=== PATIENT | female | born 1960 | race Caucasian/White ===

== ENCOUNTER → 2020-02-11 09:22 | Outpatient (BNVA) | payer OTHER, SELFPAY | PROVIDERS: PCP Internal Medicine | DX: Z20.828 Contact with and (suspected) exposure to other viral communicable diseases (principal) ==

== ENCOUNTER 2020-02-11 12:36 | Outpatient (REF) | payer OTHER, SELFPAY | END 2020-02-11 12:37 | disposition home or self-care (01) | LOC: HO.HMGCLDS 12:36 | PROVIDERS: PCP Internal Medicine; Visit Provider Internal Medicine | DX: Z20.828 Contact with and (suspected) exposure to other viral communicable diseases (principal) | CPT/HCPCS: 87635 ==

== ENCOUNTER → 2020-02-24 12:45 | Outpatient (BNVA) | payer OTHER, SELFPAY | PROVIDERS: PCP Internal Medicine; Visit Provider Anesthesiology | DX: Z76.89 Persons encountering health services in other specified circumstances (principal) ==

== ENCOUNTER 2020-02-26 12:25 | Day surgery (SDC) | payer OTHER, SELFPAY ==
[2020-02-26 12:30] VITALS: BMI 37.8
--- NOTE | 2020-02-26 12:33 | MHC.SHP ---
Pre-Procedural Eval Section A The patient is an INPATIENT: No The History & Physical has been completed within 30 days and I have reviewed it.: No Section B Chief Complaint: sacroiliitis left Details of Present Illness: low back pain, sacroiliitis Relevant Family History (Specify if Yes): No Relevant Social History: None Present Medications: None Medical History: No relevant PMH History of Previous Operations: Relevant previous surgery/procedure and date(s) (postlaminectomy syndrome) Allergies: Allergies Allergy/AdvReac Type Severity Reaction Status Date / Time No Known Allergies Allergy Unverified 12/31/19 15:54 [No Known Allergies*] Review of Systems Sugical H&P ROS: Negative: Constitution, Cardiovascular, Respiratory, Neurological, Psychiatric, Hem-Onc, Allergic/Immunologic, Gastrointestinal, Genitourinary, Musculoskeletal, Integumentary, Endocrine and Eyes/Ears/Nose/Throat Exam Surgical H&P Exam: Normal: HEENT, Normal: Heart, Normal: Lungs, Normal: Extremities, Normal: Abdomen, Normal: Skin and Normal: Neurological Plan Diagnosis/Plan: Unchanged Patient has been examined and remains a candidate for the planned procedure
--- NOTE | 2020-02-26 12:35 | HO.ANESPROP2 ---
[facility] Past Medical History Medical History Lumbar back pain with radiculopathy affecting lower extremity Postlaminectomy syndrome Sacroiliitis Social History Social History Smoking Status: Never smoker Second Hand Smoke Exposure: No Use of substances other than those prescribed or required for medical reasons: No Advance Directives: Yes Advance Directives Information Provided: No Advance Directives on File: Yes Advance Directives Date on File: 02/26/20 Meds Allergies Allergy/AdvReac Type Severity Reaction Status Date / Time No Known Allergies Allergy Unverified 12/31/19 15:54 [No Known Allergies*] Home Medications Medication Instructions Recorded Confirmed Type bupropion HCl 200 mg tablet,12 hr 200 mg PO QAM 02/24/20 History sustained-release cholecalciferol (vitamin D3) 50 50 mcg PO DAILY 02/24/20 History mcg (2,000 unit) capsule montelukast 10 mg tablet 10 mg PO DAILY 02/24/20 History Exam Exam Date and Time: February 26, 2020 1235 Height,Weight and Vital Signs: Height 5 ft 5 in Weight 102.965 kg Airway Mallampati Class: II TM Dist: >3cm Neck ROM: Full Assessment and Plan Assessment Anesthesia Assessment: Anesthesia Plan Discussed and Chart Reviewed Final Anesthetic Review NPO: Yes ASA Class: II Final Preanesthetic Review: No Changes in Pt Med Stat, Meds/Allgs Chart Reviewed, Consent Obtained/Reviewed and Anes Risks/Benef Reviewed Patient Risk: Low Procedure Risk: Low Assessment/Block/Sedation in SS: Assess/Block/Sedation-SS Anesthetic Plan Anesthetic Plan: MAC: Disposition: Standard PACU
[2020-02-26 12:50] VITALS: BP 147/90; PULSE 84; RESP 16; TEMP 36.3; O2SAT 98
--- NOTE | 2020-02-26 13:10 | FL_ITS ---
EXAMINATION: XR FLUOROSCOPY WITH IMAGES CLINICAL INFORMATION: Left sacroiliac joint steroid injection COMPARISON: None. TECHNIQUE: Fluoroscopy performed by Dr. Ander Ellis. Fluoroscopy time: 0.2 minutes DAP: 1.69 Gycm2 Images: 2 FINDINGS: There is a radiopaque needle overlying the left sacroiliac joint inferiorly. Contrast is seen in the area. FL/FL guidance in OR IMPRESSION: Fluoroscopic guidance for left sacroiliac joint injection. Please refer to procedural report for further information.
--- NOTE | 2020-02-26 13:21 | PM.OP ---
Brief Operative Note Date of Service: 02/26/20 Post-op diagnosis: same Procedure: left Sacroiliac joint injection Surgeon: Ander Ellis MD Estimated blood loss (mL): 0
--- NOTE | 2020-02-26 13:22 | PM.OP ---
Brief Operative Note Date of Service: 02/26/20 Surgeon: Ander Ellis MD Anesthesia: MAC Estimated blood loss (mL): 0 Pathology: none sent Condition: stable Disposition: PACU
[2020-02-26 13:28] VITALS: BP 126/54; PULSE 80; RESP 12; TEMP 36.6; O2SAT 98
[2020-02-26 13:33] VITALS: BP 117/62; PULSE 81; RESP 18; O2SAT 98
[2020-02-26 13:47] VITALS: BP 125/54; PULSE 82; RESP 18; TEMP 36.6; O2SAT 99
--- NOTE | 2020-02-26 15:11 | P.OP_ITS ---
Operative Note Operative Note Date of Service: 02/26/20 Narrative: Informed consent was explained thoroughly to the patient. All questions about benefits and risks for the procedure were answered. Patient came to the operating room she was positioned prone on the operating table with the pillow under her pelvis. [place] [employer] monitors were applied and patient was deeply sedated. Her lower back and buttocks was prepped with ChloraPrep prepped and draped with sterile towels. Sterilely draped C-arm was brought over the operating field and sq picture of patient's pelvis was demonstrated on the screen. For The left joint tilting C-arm contralateral to the site of the joint and 10? to the foot of the patient the most posterior portion of the joints were clearly delineated on the screen. Skin was injected in the projection of the joint slightly medial to the location of the joint with 25 gauge 1/2 inch needle using local lidocaine 2% without epinephrine. After that 22 gauge 3 and 1/2 inch needle was driven to the joint in tunnel vision fashion. When needle entered the joint capsule injection of the contrast was performed demonstrating intra-articular and minimally periarticular spread of the contrast. After that 4 cc. of bupivacaine 0.5% mixed with 40 mg of Kenalogwas injected into the left joint. Upon completion of the injections the needles were removed and pressure were applied. Sterile dressing was applied. Upon completion of the injection patient was awaken taking outside of the operating room to the recovery room where she recovered uneventfully. She went home without immediate complications.
== END 2020-02-26 14:13 | disposition home or self-care (01) ==
PROVIDERS: PCP Internal Medicine; Visit Provider Anesthesiology
PROC: 3E0U33Z Introduction of Anti-inflammatory into Joints, Percutaneous Approach (ICD-10-PCS; CPT 27096; principal; 2020-02-26 14:00)
DX: M46.1 Sacroiliitis, not elsewhere classified (principal); M54.16 Radiculopathy, lumbar region; M96.1 Postlaminectomy syndrome, not elsewhere classified; Y83.8 Other surgical procedures as the cause of abnormal reaction of the patient, or of later complication, without mention of misadventure at the time of the procedure; Z79.899 Other long term (current) drug therapy
CPT/HCPCS: 27096; J2250; J3300; Q9967

== ENCOUNTER 2020-03-01 10:00 | Outpatient (RCR) | payer OTHER, SELFPAY ==
--- NOTE | 2020-03-30 13:21 | MHC.PT.DC ---
[facility] [place] [facility] [place] [facility] [place] [facility] [address] Miles Ochoa [address] [phone] F: [phone] F: [phone] F: [phone] F: [phone] Physical Therapy Discharge Report Diagnosis: low back pain Date of Surgery: 08/2019 Date of Evaluation: 01/13/20 Date of Discharge: 03/30/20 Treatments to Date: 10 Cancellations to Date: 0 No Shows to Date: 0 Discharge Status: Achieved Goals Improved Function Independent with HEP Discharge Summary: Patient tolerated exercises well at the last tx session and reports an improvement in sleeping as well. She has had a cortisone injection and feeling better overall. She cancelled remaining visits as she was doing better. I kept her chart open for 30 days in case she wanted to return however. DC to HEP at this time. Electronically signed by: Milagros Rubio PT Please sign and return to therapist. Thank you for your referral.
== END 2020-03-30 13:22 | disposition home or self-care (01) ==
LOC: HO.PTCHIC 10:00
PROVIDERS: PCP Internal Medicine; Visit Provider Internal Medicine
DX: M54.40 Lumbago with sciatica, unspecified side (principal)
CPT/HCPCS: 97110; 97140; 97530

== ENCOUNTER 2020-03-09 08:15 | Outpatient (REF) | payer OTHER, SELFPAY ==
[2020-03-16 15:43] LABS: HLA B27 Negative (Negative)
== END 2020-03-09 08:16 | disposition home or self-care (01) ==
LOC: HO.HMGCLDS 08:15
PROVIDERS: PCP Internal Medicine; Visit Provider Internal Medicine
DX: M25.50 Pain in unspecified joint (principal); M46.1 Sacroiliitis, not elsewhere classified; Z82.69 Family history of other diseases of the musculoskeletal system and connective tissue
CPT/HCPCS: 36415; 86812

== ENCOUNTER 2020-03-16 13:52 | Outpatient (REF) | payer OTHER, SELFPAY ==
[2020-03-16 14:13] LABS: COVID-19 Test Negative (Negative)
== END 2020-03-16 13:53 | disposition home or self-care (01) ==
LOC: HO.EMPCOV 13:52
PROVIDERS: Visit Provider Internal Medicine
DX: Z20.828 Contact with and (suspected) exposure to other viral communicable diseases (principal)
CPT/HCPCS: 87635; C9803

== ENCOUNTER 2020-03-28 10:12 | Outpatient (REF) | payer OTHER, SELFPAY ==
[2020-03-28 10:47] LABS: COVID-19 Test Negative (Negative); IDNOW Serial# 55D5AD1C
== END 2020-03-28 10:13 | disposition home or self-care (01) ==
LOC: HO.EMPCOV 10:12
PROVIDERS: PCP Internal Medicine; Visit Provider Internal Medicine
DX: Z20.828 Contact with and (suspected) exposure to other viral communicable diseases (principal)
CPT/HCPCS: 87635; C9803

== ENCOUNTER 2020-04-18 07:24 | Outpatient (REF) | payer OTHER, SELFPAY ==
[2020-04-18 07:44] LABS: COVID-19 Test Negative (Negative); IDNOW Serial# 55D5AD1C
== END 2020-04-18 07:25 | disposition home or self-care (01) ==
LOC: HO.EMPCOV 07:24
PROVIDERS: PCP Internal Medicine; Visit Provider Internal Medicine
DX: Z20.822 Contact with and (suspected) exposure to COVID-19 (principal)
CPT/HCPCS: 36415; 87635; C9803

== ENCOUNTER → 2020-04-21 11:19 | Outpatient (BNVA) | payer OTHER, SELFPAY | PROVIDERS: PCP Internal Medicine; Visit Provider Anesthesiology | DX: Z76.89 Persons encountering health services in other specified circumstances (principal) ==

== ENCOUNTER 2020-05-27 10:59 | Outpatient (REF) | payer OTHER, SELFPAY ==
[2020-05-27 11:17] LABS: COVID-19 Test Negative (Negative)
== END 2020-05-27 11:00 | disposition home or self-care (01) ==
LOC: HO.EMPCOV 10:59
PROVIDERS: Visit Provider Internal Medicine
DX: Z20.822 Contact with and (suspected) exposure to COVID-19 (principal)
CPT/HCPCS: 36415; 87635; C9803

== ENCOUNTER 2020-06-01 07:56 | Outpatient (REF) | payer OTHER, SELFPAY | END 2020-06-01 07:57 | disposition home or self-care (01) | LOC: HO.HOSX 07:56 | PROVIDERS: Visit Provider Orthopaedic Surgery | DX: Z13.89 Encounter for screening for other disorder (principal) ==

== ENCOUNTER 2020-06-29 07:11 | Outpatient (REF) | payer OTHER, SELFPAY ==
[2020-06-29 11:03] LABS: MANUAL DIFF FLAG NO
[2020-06-29 11:09] LABS: Basophils Absolute Auto 0.1 X10*3/uL (0.0-0.2); Basophils Percent Auto 0.6 % (0-2); Eosinophils Absolute Auto 0.2 X10*3/uL (0.0-0.4); Eosinophils Percent Auto 2.7 % (0-4); Hematocrit 44.3 % (37-47); Hemoglobin 13.7 g/dl (12.0-16.0); Imm Gran Abs Auto 0.02 X10*3/uL (0.00-0.03); Imm Gran Pct Auto 0.2 % (0.0-0.4); Lymphocytes Absolute Auto 2.4 X10*3/uL (1.2-4.9); Lymphocytes Percent Auto 29.7 % (20-40); Mean Corpuscular HGB Conc 30.9 g/dl (31.0-35.0); Mean Corpuscular Hemoglobin 26.2 pg (27.0-33.0); Mean Corpuscular Volume 84.9 fL (80-98); Mean Platelet Volume 10.7 fL (9.4-12.3); Monocytes Absolute Auto 0.7 X10*3/uL (0.1-1.2); Neutrophils Absolute Auto 4.7 X10*3/uL (2.0-8.3); Neutrophils Percent Auto 58.8 % (45-73); Platelet Count 288 X10*3/uL (160-400); Red Blood Count 5.22 X10*6/uL (4.20-5.50); Red Cell Distribution Width 13.2 % (11.0-16.0); White Blood Count 8.1 X10*3/uL (4.8-10.8)
[2020-06-29 11:45] LABS: Alanine Aminotransferase 39 U/L (0-31); Anion Gap 13 (12-20); Aspartate Amino Transferase 26 U/L (5-31); Blood Urea Nitrogen 19 mg/dL (9-16); Calcium 9.2 mg/dL (8.4-10.2); Carbon Dioxide 29 mmol/L (22-29); Chloride 106 mmol/L (96-108); Cholesterol 250 mg/dL; Estimated Glomerular Filt Rate > 60; Glucose Fasting 92 mg/dL (60-99); HDL Cholesterol 44 mg/dL; LDL Cholesterol Calculated 137 mg/dl; Potassium 4.8 mmol/L (3.3-5.1); Sodium 143 mmol/L (135-145); Triglycerides 348 mg/dL
[2020-06-29 11:55] LABS: Vitamin D 25-OH Total 45.5 ng/mL (>30)
[2020-06-30 10:07] LABS: SARS COV2 IgG Positive (Negative)
== END 2020-06-29 07:12 | disposition home or self-care (01) ==
LOC: HO.HMGCLDS 07:11
PROVIDERS: PCP Internal Medicine; Visit Provider Internal Medicine
DX: Z00.01 Encounter for general adult medical examination with abnormal findings (principal); Z01.84 Encounter for antibody response examination; I10 Essential (primary) hypertension; Z78.0 Asymptomatic menopausal state
CPT/HCPCS: 36415; 80048; 80061; 82306; 84450; 84460; 85025; 86769

== ENCOUNTER 2020-07-08 09:19 | Day surgery (SDC) | payer OTHER, SELFPAY ==
[2020-07-01 09:59] VITALS: BMI 38.2
--- NOTE | 2020-07-07 12:13 | HO.ANESPROP2 ---
Documented by User: Tamia Nilsa 07/07/20 12:15 HPI - Anesthesia Eval Consult details Narrative: 59yo F for Left Sacroiliac Joint Innervation Injection s/p sacroiliac joint injection with MAC 02/2020 [facility] Active Problems Active Problems: All Active Problems (Updated 07/01/20 @ 09:55 by Sara Walsh) Soft tissue injury of right knee (Acute) Depression (Acute) Joint pain (Acute) Postlaminectomy syndrome (Acute) Sacroiliitis (Acute) Lumbar back pain with radiculopathy affecting lower extremity (Acute) Past Medical History Medical History Depression Family history of ankylosing spondylitis Joint pain Lumbar back pain with radiculopathy affecting lower extremity Postlaminectomy syndrome Sacroiliitis Family History Family History Father Arthritis COPD (chronic obstructive pulmonary disease) Afib High cholesterol CVD (cardiovascular disease) Mother Arthritis High cholesterol Graves disease Brother Arthritis Sister Sjogrens syndrome Maternal Grandmother Breast cancer Myoclonus Rheumatoid arthritis PTSD (post-traumatic stress disorder) Sister Lyme disease Fibromyalgia Graves disease Son No problems noted. Daughter No problems noted. Surgical History Surgical History History of breast mammoplasty History of knee surgery History of microdiscectomy History of total abdominal hysterectomy and bilateral salpingo-oophorectomy Social History Social History Alcohol intake: never Smoking Status: Never smoker Second Hand Smoke Exposure: No Use of substances other than those prescribed or required for medical reasons: No Advance Directives: Yes Advance Directives Information Provided: Yes Advance Directives on File: Yes Advance Directives Date on File: 02/26/20 Meds Allergies Allergy/AdvReac Type Severity Reaction Status Date / Time No Known Allergies Allergy Verified 07/08/20 09:53 [No Known Allergies*] Home Medications Medication Instructions Recorded Confirmed Last Taken Type cholecalciferol (vitamin D3) 50 50 mcg PO DAILY 02/24/20 07/01/20 Unknown History mcg (2,000 unit) capsule montelukast 10 mg tablet 10 mg PO DAILY 02/24/20 07/01/20 Unknown History celecoxib 1 cap PO DAILY 07/01/20 07/01/20 Unknown History cetirizine 1 tab PO DAILY 07/01/20 07/01/20 Unknown History Exam Exam Date and Time: July 07, 2020 1213 Height,Weight and Vital Signs: Height 5 ft 5 in Weight 104.326 kg Pertinent Lab Results Pertinent Lab Results: Laboratory Tests 06/29/20 06/29/20 07:15 07:15 WBC 8.1 Hgb 13.7 Hct 44.3 Plt Count 288 Sodium 143 Potassium 4.8 Chloride 106 Carbon Dioxide 29 BUN 19 H Creatinine 0.80 Assessment and Plan Assessment Anesthesia Assessment: Chart Reviewed Documented by User: Vernon Marina MD 07/08/20 10:13 PMF Past Medical History Medical History Depression Family history of ankylosing spondylitis Joint pain Lumbar back pain with radiculopathy affecting lower extremity Postlaminectomy syndrome Sacroiliitis Family History Family History Father Arthritis COPD (chronic obstructive pulmonary disease) Afib High cholesterol CVD (cardiovascular disease) Mother Arthritis High cholesterol Graves disease Brother Arthritis Sister Sjogrens syndrome Maternal Grandmother Breast cancer Myoclonus Rheumatoid arthritis PTSD (post-traumatic stress disorder) Sister Lyme disease Fibromyalgia Graves disease Son No problems noted. Daughter No problems noted. Surgical History Surgical History History of breast mammoplasty History of knee surgery History of microdiscectomy History of total abdominal hysterectomy and bilateral salpingo-oophorectomy Social History Social History Alcohol intake: never Smoking Status: Never smoker Second Hand Smoke Exposure: No Use of substances other than those prescribed or required for medical reasons: No Advance Directives: Yes Advance Directives Information Provided: Yes Advance Directives on File: Yes Advance Directives Date on File: 02/26/20 Meds Allergies Allergy/AdvReac Type Severity Reaction Status Date / Time No Known Allergies Allergy Verified 07/08/20 09:53 [No Known Allergies*] Home Medications Medication Instructions Recorded Confirmed Last Taken Type cholecalciferol (vitamin D3) 50 50 mcg PO DAILY 02/24/20 07/01/20 Unknown History mcg (2,000 unit) capsule montelukast 10 mg tablet 10 mg PO DAILY 02/24/20 07/01/20 Unknown History celecoxib 1 cap PO DAILY 07/01/20 07/01/20 Unknown History cetirizine 1 tab PO DAILY 07/01/20 07/01/20 Unknown History Exam Airway Mallampati Class: II TM Dist: >3cm Neck ROM: Full Loose/Missing/Broken Teeth: No Heart: RRR Lungs: NL Assessment and Plan Assessment Anesthesia Assessment: Anesthesia Plan Discussed and Chart Reviewed Final Anesthetic Review NPO: Yes ASA Class: III Final Preanesthetic Review: No Changes in Pt Med Stat, Meds/Allgs Chart Reviewed, Consent Obtained/Reviewed and Anes Risks/Benef Reviewed Patient Risk: Intermediate Procedure Risk: Low Anesthetic Plan Anesthetic Plan: GA Disposition: Standard PACU
--- NOTE | ~2020-07-08 | FL_ITS ---
EXAMINATION: XR FLUOROSCOPY WITH IMAGES CLINICAL INFORMATION: Sacroiliac joint innervation injection COMPARISON: Radiographs sacrum 01/11/2020 TECHNIQUE: Fluoroscopy performed by Dr. Ander Ellis. Fluoroscopy time: 0.4 minutes DAP: 6.62 Gycm2 Images: 5 FINDINGS: There are spinal needles overlying the left outer L4-L5 and L5-S1 neural foramen with contrast in the nerve sheath and some transforaminal epidural extension. There are also spinal needles overlying the left sacral wing. FL/FL guidance in OR IMPRESSION: Fluoroscopy for pain management procedures.
[2020-07-08 09:33] VITALS: BP 143/66; PULSE 73; RESP 16; TEMP 36.4; O2SAT 97
--- NOTE | 2020-07-08 09:45 | MHC.SHP ---
Pre-Procedural Eval Section A The patient is an INPATIENT: No Changes since office visit: Yes Patient answered all questions The History & Physical has been completed within 30 days and I have reviewed it.: No Section B Chief Complaint: Sacroiliitis Details of Present Illness: As above Relevant Family History (Specify if Yes): No Relevant Social History: None Present Medications: see Short Stay Collaborative assessment Medical History: No relevant PMH History of Previous Operations: Relevant previous surgery/procedure and date(s) Allergies: Allergies Allergy/AdvReac Type Severity Reaction Status Date / Time No Known Allergies Allergy Verified 07/01/20 09:56 [No Known Allergies*] Review of Systems Sugical H&P ROS: Negative: Cardiovascular, Respiratory, Neurological, Psychiatric, Hem-Onc, Allergic/Immunologic, Gastrointestinal, Genitourinary, Musculoskeletal, Integumentary, Endocrine and Eyes/Ears/Nose/Throat and Yes, Specify: Constitution (Obesity) Exam Surgical H&P Exam: Normal: HEENT, Normal: Heart, Normal: Lungs, Normal: Extremities, Normal: Abdomen, Normal: Skin and Normal: Neurological Plan Diagnosis/Plan: Unchanged I have reviewed the history and physical and performed a pertinent physical examination on my patient. No changes have occurred unless specified.
[2020-07-08] MEDS: Lactated Ringers 1,000 ML 100 ML IVCONT (09:51)
[2020-07-08 10:25] VITALS: BP 124/60; PULSE 66; RESP 16; TEMP 36.6; O2SAT 97
--- NOTE | 2020-07-08 10:27 | PM.OP ---
Brief Operative Note Date of Service: 07/08/20 Pre-op diagnosis: Sacroiliitis Post-op diagnosis: same Procedure: Sacroiliac joint innervation injection. Left-sided sacroiliac joint Surgeon: Ander Ellis MD Anesthesia: MAC Estimated blood loss (mL): 0 Disposition: PACU
[2020-07-08 10:41] VITALS: BP 124/68; PULSE 66; RESP 18; O2SAT 98
--- NOTE | 2020-07-11 09:53 | W.PM.OPN ---
Operative Note Operative Note Date of Service: 07/08/20 Narrative: Informed consent was explained thoroughly to the patient. All questions about benefits and risks for the procedure were answered. Patient came to the operating room she was positioned prone on the operating table with the pillow under her pelvis. [place] [employer] monitors were applied and patient was deeply sedated. Opioids and ketamine were avoided during the sedation. Her lower back and buttocks was prepped with ChloraPrep prepped and draped with sterile towels. Sterilely draped C-arm was brought over the operating field and sq picture of patient's pelvis was demonstrated on the screen. The point of interests were delineated 1st: Point A as the left L5 superior articular process at the point of its connection with corresponding transverse process and point B: Left S1 superior articular process at it's connection with sacral alae. The point C was determined as the lowest point of the sacroiliac joint on sacral side of the joint. The rest of the point of interests were determined as the line between the point B and the point C . The needles between point B and point C were planned to insert in the straight line in palisade fashion. The skin in the projection of the points of interest were injected with small amount of local lidocaine 2%, after that 22 gauge 3-1/2 inch needles were driven to the point of interest in tunnel vision fashion. When cannulas gently contacted the bone- the each point of interest small amount of bupivacaine 0.5% less than 1 cc was injected each needle. Upon completion of the injections the needles were removed sterile dressing was applied. The patient tolerated procedure well. She went outside of the operating room to PACU where she recovered uneventfully. She went home without immediate complications.
== END 2020-07-08 11:11 | disposition home or self-care (01) ==
PROVIDERS: PCP Internal Medicine; Visit Provider Anesthesiology
PROC: (CPT 64451; principal; 2020-07-08 10:30)
DX: M46.1 Sacroiliitis, not elsewhere classified (principal); M96.1 Postlaminectomy syndrome, not elsewhere classified; M54.16 Radiculopathy, lumbar region
CPT/HCPCS: 64451; J2250; J3010; J3300; Q9967

== ENCOUNTER → 2020-07-14 13:31 | Outpatient (BNVA) | payer OTHER, SELFPAY | PROVIDERS: PCP Internal Medicine; Visit Provider Anesthesiology ==

== ENCOUNTER → 2020-07-19 10:49 | Outpatient (BNVA) | payer OTHER, SELFPAY | PROVIDERS: PCP Internal Medicine; Visit Provider Orthopaedic Surgery | DX: M17.11 Unilateral primary osteoarthritis, right knee (principal) | CPT/HCPCS: 20610; J1040 ==

== ENCOUNTER 2020-08-12 06:11 | Day surgery (SDC) | payer OTHER, SELFPAY ==
--- NOTE | 2020-08-11 13:07 | P.CONAN_ITS ---
Documented by User: Tamia Ash 08/11/20 13:27 HPI - Anesthesia Eval Consult details Narrative: 59yo F for Left Peripheral Nerve Stimulator Trial, sacroiliac joint innervation s/p Left Left Sacroiliac Joint Innervation Injection with MAC 06/2020 [facility] Active Problems Active Problems: All Active Problems (Updated 07/19/20 @ 11:01 by Kaye Damian MD) Osteoarthritis of right knee (Acute) Postmenopause (Acute) Mixed dyslipidemia (Acute) Soft tissue injury of right knee (Acute) Depression (Acute) Joint pain (Acute) Postlaminectomy syndrome (Acute) Sacroiliitis (Acute) Lumbar back pain with radiculopathy affecting lower extremity (Acute) Past Medical History Medical History (Updated 08/12/20 @ 07:52 by Lyndsay Bai) Depression Family history of ankylosing spondylitis History of shingles Increased BMI Joint pain Lumbar back pain with radiculopathy affecting lower extremity Mixed dyslipidemia Osteoarthritis of right knee Postlaminectomy syndrome Postmenopause Sacroiliitis Family History Family History Father Arthritis COPD (chronic obstructive pulmonary disease) Afib High cholesterol CVD (cardiovascular disease) Mother Arthritis High cholesterol Graves disease Brother Arthritis Sister Sjogrens syndrome Maternal Grandmother Breast cancer Myoclonus Rheumatoid arthritis PTSD (post-traumatic stress disorder) Sister Lyme disease Fibromyalgia Graves disease Son No problems noted. Daughter No problems noted. Surgical History Surgical History History of breast mammoplasty History of knee surgery History of microdiscectomy History of total abdominal hysterectomy and bilateral salpingo-oophorectomy Social History Social History Alcohol intake: never Smoking Status: Former smoker Smoked in Last 30 Days: No Smoking Quit Date: 40 years ago Second Hand Smoke Exposure: No Use of substances other than those prescribed or required for medical reasons: Yes Substance Use Frequency: Socially Advance Directives: No Advance Directives Information Provided: Yes Advance Directives Date on File: 02/26/20 Meds Allergies Allergy/AdvReac Type Severity Reaction Status Date / Time No Known Allergies Allergy Verified 07/25/20 01:21 [No Known Allergies*] Home Medications Medication Instructions Recorded Confirmed Last Taken Type cholecalciferol (vitamin D3) 50 50 mcg PO DAILY 02/24/20 07/18/20 Unknown History mcg (2,000 unit) capsule montelukast 10 mg tablet 10 mg PO DAILY 02/24/20 07/18/20 Unknown History celecoxib 1 cap PO DAILY 07/01/20 07/18/20 Unknown History cetirizine 1 tab PO DAILY 07/01/20 07/18/20 Unknown History Exam Exam Date and Time: August 11, 2020 1307 Assessment and Plan Assessment Anesthesia Assessment: Chart Reviewed Documented by User: Lyndsay Bai 08/12/20 07:55 PMF Past Medical History Medical History (Updated 08/12/20 @ 07:52 by Lyndsay Bai) Depression Family history of ankylosing spondylitis History of shingles Increased BMI Joint pain Lumbar back pain with radiculopathy affecting lower extremity Mixed dyslipidemia Osteoarthritis of right knee Postlaminectomy syndrome Postmenopause Sacroiliitis Family History Family History Father Arthritis COPD (chronic obstructive pulmonary disease) Afib High cholesterol CVD (cardiovascular disease) Mother Arthritis High cholesterol Graves disease Brother Arthritis Sister Sjogrens syndrome Maternal Grandmother Breast cancer Myoclonus Rheumatoid arthritis PTSD (post-traumatic stress disorder) Sister Lyme disease Fibromyalgia Graves disease Son No problems noted. Daughter No problems noted. Family history of problems with anesthesia: No Surgical History Surgical History History of breast mammoplasty History of knee surgery History of microdiscectomy History of total abdominal hysterectomy and bilateral salpingo-oophorectomy History of Problems with Anesthesia: No Social History Social History Alcohol intake: never Smoking Status: Former smoker Smoked in Last 30 Days: No Smoking Quit Date: 40 years ago Second Hand Smoke Exposure: No Use of substances other than those prescribed or required for medical reasons: Yes Substance Use Frequency: Socially Advance Directives: No Advance Directives Information Provided: Yes Advance Directives Date on File: 02/26/20 Meds Allergies Allergy/AdvReac Type Severity Reaction Status Date / Time No Known Allergies Allergy Verified 07/25/20 01:21 [No Known Allergies*] Home Medications Medication Instructions Recorded Confirmed Last Taken Type cholecalciferol (vitamin D3) 50 50 mcg PO DAILY 02/24/20 07/18/20 Unknown History mcg (2,000 unit) capsule montelukast 10 mg tablet 10 mg PO DAILY 02/24/20 07/18/20 Unknown History celecoxib 1 cap PO DAILY 07/01/20 07/18/20 Unknown History cetirizine 1 tab PO DAILY 07/01/20 07/18/20 Unknown History Exam Height,Weight and Vital Signs: Vital Signs Temp Pulse Resp BP Pulse Ox 08/12/20 06:41 98.2 F 75 16 131/76 97 Narrative Narrative: Piercings nose, front of ears- states difficult to remove- aware of possibility of loss, pressure from positioning abd elects to keep piercings in Airway Mallampati Class: II TM Dist: >3cm Neck ROM: Full Heart: RRR Lungs: CTAB Assessment and Plan Assessment Anesthesia Assessment: Anesthesia Plan Discussed and Chart Reviewed Final Anesthetic Review NPO: Yes ASA Class: III Final Preanesthetic Review: No Changes in Pt Med Stat, Meds/Allgs Chart Reviewed and Anes Risks/Benef Reviewed Patient Risk: Intermediate Procedure Risk: Low Assessment/Block/Sedation in SS: Assess/Block/Sedation-SS Anesthetic Plan Anesthetic Plan: MAC:
[2020-08-12] VITALS (9 sets, daily range): BP systolic 108–131; BP diastolic 53–76; PULSE 65–78; RESP 12–18; TEMP 36.7–36.9; O2SAT 96–97; BMI 37.4
--- NOTE | ~2020-08-12 | FL_ITS ---
EXAMINATION: XR FLUOROSCOPY WITH IMAGES CLINICAL INFORMATION: Peripheral nerve stimulator COMPARISON: Previous exam 07/08/2020 TECHNIQUE: Fluoroscopy performed by Dr. Ander Ellis. Fluoroscopy time: 0.4 minutes DAP: 3.3 mGycm2 Images: 0.4 FINDINGS: 2 images demonstrate a lead projecting over the left sacrum. FL/FL guidance in OR IMPRESSION: Fluoroscopic guidance for peripheral nerve stimulator placement in the left sacrum.
[2020-08-12] MEDS: Lactated Ringers 1,000 ML 100 ML IVCONT (06:56)
--- NOTE | 2020-08-12 07:05 | MHC.SHP ---
Pre-Procedural Eval Section A The patient is an INPATIENT: No Changes since office visit: Yes Patient answered all questions The History & Physical has been completed within 30 days and I have reviewed it.: No Section B Chief Complaint: sacrolitis Details of Present Illness: as above Relevant Family History (Specify if Yes): No Relevant Social History: None Present Medications: see Short Stay Collaborative assessment Medical History: No relevant PMH History of Previous Operations: No relevant previous surgery Allergies: Allergies Allergy/AdvReac Type Severity Reaction Status Date / Time No Known Allergies Allergy Verified 07/25/20 01:21 [No Known Allergies*] Review of Systems Sugical H&P ROS: Negative: Constitution, Cardiovascular, Respiratory, Neurological, Psychiatric, Hem-Onc, Allergic/Immunologic, Gastrointestinal, Genitourinary, Musculoskeletal, Integumentary, Endocrine and Eyes/Ears/Nose/Throat Exam Surgical H&P Exam: Normal: HEENT, Normal: Heart, Normal: Lungs, Normal: Extremities, Normal: Abdomen, Normal: Skin and Normal: Neurological Plan Diagnosis/Plan: Unchanged I have reviewed the history and physical and performed a pertinent physical examination on my patient. No changes have occurred unless specified.
--- NOTE | 2020-08-12 07:21 | PM.OP ---
Brief Operative Note Date of Service: 08/12/20 Pre-op diagnosis: Sacroiliitis Post-op diagnosis: same Procedure: PNS of SI joint innervation left stimwave. Implants: none permanent Surgeon: Ander Ellis MD Anesthesia: MAC Estimated blood loss (mL): 18 Pathology: none sent Condition: stable Disposition: PACU
--- NOTE | 2020-08-12 07:23 | P.OP_ITS ---
Operative Note Operative Note Date of Service: 08/12/20 Narrative: Seema is 59 years old female who came today into the operating room for trial of Peripheral nerve stimulation of the left Sacroiliac joint innervation trial with stimwave technology. Preoperatively patient received 2 g cefazolin _approximately 30 minutes before the procedure. After obtaining informed consent patient was brought to the operating room, she was positioned prone on operating table, [employer] monitors were applied and patient was deeply sedated. Time-out was performed delineating correct site, side, the nature of the procedure, patient's allergy, preoperative antibiotic. All operating room staff was participating in OR time-out procedure. Patient's entire back was prepped with ChloraPrep twice and draped with full body drape. Sterilely draped C-arm was brought over operating field and attention was concentrated on the left sacroiliac joint area pain. 10 cm malleable Coude needle was inserted to the skin in the projection of about 2 cm cephalad of the sacroiliac joints upper margin. The needle was advanced toward the sacral bone and after that followed the curvature of the sacral bone to the point where the lower most portion of the sacroiliac joint is contacted. On the lateral view the needle was posterior to the sacral bone therefore covering innervation of sacroiliac joint. stimulating lead was inserted through the needle and advanced to the lower margin of the sacroiliac joint. After that the stirring style was removed from the stimulating lead and copper wire stimulating stylet was inserted into the lead. Coude needle was removed, care was taken to keep the electrode in place. Skin at the point of entrance of the lead was prepped with Mastisol, at the 2nd margin of the stimulating antenna just below the 2nd margin the knot was tied on the lead. After that Steri-Strips were used to fix the lead to the skin smeared with Mastisol. After that sterile dressing was applied. The transmitter was placed over the antenna of the lead and it was taped to the skin. At this moment patient was awaken and transferred to the bed. She was recovering uneventfully in PACU.
--- NOTE | 2020-08-12 07:23 | PC.NURSE ---
Patient wearing a total of 6 hoop earrings and two rings (one gold, one silver) on left hand. Patient advised by this RN and anesthesia to remove jewelry so it does not get lost or injury occurs due to positioning. Patient refuses. To proceed with surgery.
[2020-08-12] MEDS: oxyCODONE HCl Immed Release 5 MG TABLET PO (08:55)
== END 2020-08-12 10:30 | disposition home or self-care (01) ==
PROVIDERS: PCP Internal Medicine; Visit Provider Anesthesiology
PROC: (CPT 64555; principal; 2020-08-12 07:30)
DX: M46.1 Sacroiliitis, not elsewhere classified (principal); M96.1 Postlaminectomy syndrome, not elsewhere classified
CPT/HCPCS: 64555; C1778; J0690; J1100; J2250; J2405; J3010

== ENCOUNTER → 2020-08-18 13:13 | Outpatient (BNVA) | payer OTHER, SELFPAY | PROVIDERS: PCP Internal Medicine; Visit Provider Anesthesiology ==

== ENCOUNTER → 2020-09-02 10:31 | Outpatient (BNVA) | payer OTHER, SELFPAY | PROVIDERS: PCP Internal Medicine; Visit Provider Orthopaedic Surgery ==

== ENCOUNTER 2020-09-16 10:21 | Outpatient (REF) | payer OTHER, SELFPAY ==
--- NOTE | ~2020-09-16 | MR_ITS ---
EXAMINATION: MR KNEE WITHOUT CONTRAST, RIGHT CLINICAL INFORMATION: Other tear of medial meniscus, current injury. Patient reports history of osteoarthritis, right knee pain for 40 years, medial, clicks, fall May 2020, swelling, and previous surgery for meniscus tear couple of years ago. COMPARISON: XR right knee 12/16/2019. MRI right knee 02/21/2017. TECHNIQUE: MRI of the knee without contrast was performed using routine sequences on a high-field scanner. FINDINGS: MENISCI: Medial Meniscus: There is a worsening moderate to high-grade irregular partial tear involving the posterior root of the medial meniscus. There is worsening sgyi-fx-dtmbpocg medial extrusion of the body. There is slight worsening intrasubstance degenerative signal in the body with a superimposed horizontal tear extending to the inferior surface adjacent to the free edge. Lateral Meniscus: There is new minor fraying of the free edge of the body of the lateral meniscus. The posterior and anterior horns appear intact. LIGAMENTS: Cruciate: Intact. Collateral: Intact. EXTENSOR MECHANISM: Intact. An enthesophyte is again noted at the quadriceps insertion site. ARTICULAR CARTILAGE/BONE: Patellofemoral Compartment: There is no change in mild cartilage irregularity and thinning in the medial facet of the patella with some involvement of the apex. There is some worsening patchy oeds-vw-qalgkxlp cartilage irregularity and thinning throughout the femoral trochlea. Medial Compartment: There is worsening patchy cartilage irregularity and thinning in the weightbearing medial compartment ranging from mild to high-grade, most severe medially and anteriorly. There is mild underlying bone marrow edema. There are small marginal osteophytes. Lateral Compartment: There is new mild cartilage surface irregularity and thinning in the posterior weightbearing lateral compartment. JOINT FLUID AND BURSAE: Kdfcs-zk-ofkbvbge joint effusion. MR/MR knee RT wo con IMPRESSION: 1. Worsening moderate to high-grade partial tearing of the posterior root of the medial meniscus. Slight worsening degeneration and superimposed inner margin undersurface tear of the body. 2. New minor fraying of the free edge of the body of the lateral meniscus. 3. Worsening jruj-cv-lpqkrerg patellofemoral and moderate to high-grade medial compartment arthrosis. New mild arthrosis in the posterior weightbearing lateral compartment. 4. Aruoj-ap-zucntcaz joint effusion.
== END 2020-09-16 10:22 | disposition home or self-care (01) ==
LOC: HO.MRI 10:21
PROVIDERS: PCP Internal Medicine; Visit Provider Orthopaedic Surgery
DX: S83.241D Other tear of medial meniscus, current injury, right knee, subsequent encounter (principal)
CPT/HCPCS: 73721

== ENCOUNTER → 2020-09-21 09:08 | Outpatient (BNVA) | payer OTHER, SELFPAY | PROVIDERS: PCP Internal Medicine; Visit Provider Orthopaedic Surgery ==

== ENCOUNTER 2020-10-07 10:22 | Day surgery (SDC) | payer OTHER, SELFPAY ==
[2020-09-30 15:08] VITALS: BMI 38.2
--- NOTE | ~2020-10-07 | FL_ITS ---
EXAMINATION: XR FLUOROSCOPY WITH IMAGES CLINICAL INFORMATION: Peripheral nerve implant. COMPARISON: None. TECHNIQUE: Fluoroscopy performed by Dr. Ander Ellis. Fluoroscopy time: 0.8 minutes DAP: 5.71 mGy-cm2 Images: 2 FINDINGS: Fluoroscopic intraoperative images demonstrate catheters to the left of midline in the abdomen and pelvis. FL/FL guidance in OR IMPRESSION: Limited fluoroscopic intraoperative radiographs.
[2020-10-07 10:45] VITALS: BP 144/68; PULSE 74; RESP 18; TEMP 36.6; O2SAT 97
--- NOTE | 2020-10-07 11:04 | P.CONAN_ITS ---
[facility] Active Problems Active Problems: All Active Problems (Updated 09/30/20 @ 15:05 by Sara krishna) Soft tissue injury of right knee (Acute) Tear of medial meniscus of right knee (Acute) Increased BMI (Acute) Osteoarthritis of right knee (Acute) Postmenopause (Acute) Mixed dyslipidemia (Acute) Depression (Acute) Joint pain (Acute) Postlaminectomy syndrome (Acute) Sacroiliitis (Acute) Lumbar back pain with radiculopathy affecting lower extremity (Acute) Past Medical History Medical History Asthma COVID-19 vaccine series completed Depression Family history of ankylosing spondylitis Fibromyalgia History of postoperative nausea and vomiting History of shingles Increased BMI Joint pain Lumbar back pain with radiculopathy affecting lower extremity Mixed dyslipidemia Osteoarthritis Osteoarthritis of right knee Postlaminectomy syndrome Postmenopause Sacroiliitis Family History Family History Father Arthritis COPD (chronic obstructive pulmonary disease) Afib High cholesterol CVD (cardiovascular disease) Mother Arthritis High cholesterol Graves disease Brother Arthritis Sister Sjogrens syndrome Maternal Grandmother Breast cancer Myoclonus Rheumatoid arthritis PTSD (post-traumatic stress disorder) Sister Lyme disease Fibromyalgia Graves disease Son No problems noted. Daughter No problems noted. Family history of problems with anesthesia: No Surgical History Surgical History History of breast mammoplasty History of knee surgery History of microdiscectomy History of total abdominal hysterectomy and bilateral salpingo-oophorectomy History of Problems with Anesthesia: No Social History Social History Alcohol intake: never Patient Tobacco Use Status: Never used Tobacco Second Hand Smoke Exposure: No Use of substances other than those prescribed or required for medical reasons: No Have you been hit, kicked, punched, or otherwise hurt by someone within the past year? If so, by whom?: No Are you DNR?: No Advance Directives: Yes Advance Directives Information Provided: Yes Advance Directives on File: Yes Advance Directives Date on File: 02/26/20 Meds Allergies Allergy/AdvReac Type Severity Reaction Status Date / Time No Known Allergies Allergy Verified 10/07/20 10:51 [No Known Allergies*] Home Medications Medication Instructions Recorded Confirmed Last Taken Type cholecalciferol (vitamin D3) 50 50 mcg PO DAILY 02/24/20 09/30/20 Unknown History mcg (2,000 unit) capsule montelukast 10 mg tablet 10 mg PO DAILY 02/24/20 09/30/20 Unknown History albuterol sulfate 2 puff INHALATION Q6H PRN 09/30/20 09/30/20 Unknown History celecoxib 1 tab PO BID 09/30/20 09/30/20 Unknown History Exam Exam Date and Time: October 07, 2020 1104 Height,Weight and Vital Signs: Height 5 ft 5 in Weight 104.326 kg Last Vital Signs Temp 97.8 F 10/07/20 10:45 Pulse 74 10/07/20 10:45 Resp 18 10/07/20 10:45 BP 144/68 H 10/07/20 10:45 Pulse Ox 97 10/07/20 10:45 Airway Mallampati Class: II TM Dist: >3cm Neck ROM: Full
[2020-10-07] MEDS: Lactated Ringers 1,000 ML 100 ML IVCONT (11:08)
--- NOTE | 2020-10-07 11:35 | MHC.SHP ---
Pre-Procedural Eval Section A Date of Service: 10/07/20 The patient is an INPATIENT: No Changes since office visit: Yes Patient answered all questions The History & Physical has been completed within 30 days and I have reviewed it.: No Section B Chief Complaint: sacroiliitis Details of Present Illness: as above Relevant Family History (Specify if Yes): No Relevant Social History: None Present Medications: see Short Stay Collaborative assessment Medical History: No relevant PMH History of Previous Operations: No relevant previous surgery Allergies: Allergies Allergy/AdvReac Type Severity Reaction Status Date / Time No Known Allergies Allergy Verified 10/07/20 10:51 [No Known Allergies*] Review of Systems Sugical H&P ROS: Negative: Constitution, Cardiovascular, Respiratory, Neurological, Psychiatric, Hem-Onc, Allergic/Immunologic, Gastrointestinal, Genitourinary, Musculoskeletal, Integumentary, Endocrine and Eyes/Ears/Nose/Throat Exam Surgical H&P Exam: Normal: HEENT, Normal: Heart, Normal: Lungs, Normal: Extremities, Normal: Abdomen, Normal: Skin and Normal: Neurological Plan Diagnosis/Plan: Unchanged I have reviewed the history and physical and performed a pertinent physical examination on my patient. No changes have occurred unless specified.
[2020-10-07 11:42] VITALS: BMI 36.6
[2020-10-07 13:35] VITALS: BP 146/86; PULSE 66; RESP 12; TEMP 36.1; O2SAT 98
[2020-10-07] MEDS: oxyCODONE HCl Immed Release 5 MG TABLET PO (13:40)
--- NOTE | 2020-10-07 13:44 | PM.OP ---
Brief Operative Note Date of Service: 10/07/20 Pre-op diagnosis: Sacroiliitis Post-op diagnosis: same Procedure: left SI joint innervation stimulation Implants: Stimwave thined stimulating electrodes Surgeon: Ander Ellis MD Anesthesia: MAC Was an [address] Reporter used for this Procedure?: No Estimated blood loss (mL): 29 Pathology: none sent Condition: stable Disposition: PACU
[2020-10-07 13:45] VITALS: RESP 18
[2020-10-07] MEDS: fentaNYL citrate/PF 100 MCG/2 ML VIAL 50 MCG IVPUSH ×2 (13:45→13:50)
[2020-10-07 13:50] VITALS: BP 137/78; PULSE 69; RESP 16; O2SAT 97
[2020-10-07 13:55] VITALS: BP 143/75; PULSE 77; RESP 16; O2SAT 96
[2020-10-07 14:05] VITALS: BP 122/73; PULSE 85; RESP 16; TEMP 36.8; O2SAT 96
--- NOTE | 2020-10-07 20:41 | W.PM.OPN ---
Operative Note Operative Note Date of Service: 10/07/20 Narrative: After obtaining informed consent patient was brought to the operating room, she was positioned prone on the operating table, [employer] monitors were applied and patient was deeply sedated. Time-out was performed delineating correct site, side, the nature of the procedure, patient's allergy, preoperative antibiotic. All operating room staff was participating in OR time-out procedure. The patient received cefazolin 2 gr. intravenously 30 minutes before the procedure After appropriate level of sedation was obtained the patient's entire back was prepped with ChloraPrep twice. Whole body drape was applied including Ioban film. Sterilely draped C-arm was brought over the operating field and sq picture of left hald of the pelvis was demonstrated on the screen. 4 cm above from the patient's left sacral ala projection the skin was infiltrated in linear vertical fashion and 15 blade scalpel was used to make an incision on the skin 4 cm long. The wound was widened and deepened intil the superficial layer of thoracolumbar fascia. Malleable introducer 16 g 15 cm needle was inserted through the fascia and advanced to the LEFT sacral ala. when the position of the tip of the introducer needle was verified on the lateral view above the level of the bone, the needle advanced alongside the sacral bone curvature following the direction of the silhouette of the sacroilic joint. The guitar wire was inserted into the needle and advanced into the direction of the SI joint until it reached the lowest portion of the joint. After that guitar wire was removed and permanent stimulator catheter was inserted and advanced in the same fashion. When the body of the lead reached adequate position the stirring stilet was removed from the lead and a conduction copper wire was inserted into the lead and advanced until resistance was met. The introducer needle was withdrawn with care taken not to dislodge the stimulating lead. After that - one more stimulating lead was inserted into slightly more lateral position and more proximal position 1 cm to the lateral side from the first stimulating lead using the same technique as described above. The wound was irrigated with vancomycin containing normal saline. After that in the upper left flank local anesthetic was injected into the skin and the horizontal 3.5 cm incision was made using 10 blade scalpel. This wound was widened and deepened using dull dissection and hemostasis was performed using electrocautery. After that this wound was irrigated with vancomycin containing normal saline and tunneling device was used to connect the two wounds. The tales of the stimulating electrodes were tunneled from the distal wound to the proximal wound and tunneling device was withdrawn. Care was taken to form straight position of the stimulating leads. After that the ends of the plastic leads were tide on itself and then the coil was formed from the free ends of the two plastic leads using free silk suture knots. the coil was inserted into the wound. After that both wounds were irrigated again, they were closed using 0 polisorb sutures, essence were applied to the skin level. Bacitracin ointment was applied on the suture lines and the sterile dressings were affixed on the both wounds. The patient was awaken, transferred to PACU, where she recovered uneventfully.
== END 2020-10-07 15:10 | disposition home or self-care (01) ==
LOC: HO.SSS 10:23
PROVIDERS: PCP Internal Medicine; Visit Provider Anesthesiology
PROC: (CPT 64590; principal; 2020-10-07 12:00)
DX: M46.1 Sacroiliitis, not elsewhere classified (principal); M96.1 Postlaminectomy syndrome, not elsewhere classified; M51.36 Other intervertebral disc degeneration, lumbar region; M15.0 Primary generalized (osteo)arthritis; M47.9 Spondylosis, unspecified; Z87.891 Personal history of nicotine dependence
CPT/HCPCS: 64590; 64561; C1816; J0690; J2250; J3010; J3370

== ENCOUNTER → 2020-10-13 13:31 | Outpatient (BNVA) | payer OTHER, SELFPAY | PROVIDERS: PCP Internal Medicine; Visit Provider Anesthesiology ==

== ENCOUNTER → 2020-10-20 13:28 | Outpatient (BNVA) | payer OTHER, SELFPAY | PROVIDERS: PCP Internal Medicine; Visit Provider Anesthesiology ==

== ENCOUNTER → 2020-10-25 10:11 | Outpatient (BNVA) | payer OTHER, SELFPAY | PROVIDERS: PCP Internal Medicine; Visit Provider Physician Assistant ==

== ENCOUNTER 2020-11-03 06:38 | Day surgery (SDC) | payer OTHER, SELFPAY ==
[2020-10-27 15:17] VITALS: BMI 38.1
--- NOTE | 2020-11-02 08:26 | P.CONAN_ITS ---
Documented by User: Tamia Ash 11/02/20 08:27 HPI - Anesthesia Eval Consult details Narrative: 60yo F for Right Knee Arthroscopy s/p periph nerve stim implant with TIVA 10/07/20 [facility] Active Problems Active Problems: All Active Problems (Updated 09/30/20 @ 15:05 by Sara Walsh) Soft tissue injury of right knee (Acute) Tear of medial meniscus of right knee (Acute) Increased BMI (Acute) Osteoarthritis of right knee (Acute) Postmenopause (Acute) Mixed dyslipidemia (Acute) Depression (Acute) Joint pain (Acute) Postlaminectomy syndrome (Acute) Sacroiliitis (Acute) Lumbar back pain with radiculopathy affecting lower extremity (Acute) Past Medical History Medical History Asthma COVID-19 vaccine series completed Depression Family history of ankylosing spondylitis Fibromyalgia History of postoperative nausea and vomiting History of shingles Increased BMI Joint pain Lumbar back pain with radiculopathy affecting lower extremity Mixed dyslipidemia Osteoarthritis Osteoarthritis of right knee Postlaminectomy syndrome Postmenopause Sacroiliitis Family History Family History Father Arthritis COPD (chronic obstructive pulmonary disease) Afib High cholesterol CVD (cardiovascular disease) Mother Arthritis High cholesterol Graves disease Brother Arthritis Sister Sjogrens syndrome Maternal Grandmother Breast cancer Myoclonus Rheumatoid arthritis PTSD (post-traumatic stress disorder) Sister Lyme disease Fibromyalgia Graves disease Son No problems noted. Daughter No problems noted. Family history of problems with anesthesia: No Surgical History Surgical History History of breast mammoplasty History of knee surgery History of microdiscectomy History of total abdominal hysterectomy and bilateral salpingo-oophorectomy S/P insertion of spinal cord stimulator History of Problems with Anesthesia: No Social History Social History Are you a primary child care attendant to a significant other at home: No Do you presently have visiting nurse or other home services: No Alcohol intake: never Patient Tobacco Use Status: Never used Tobacco Second Hand Smoke Exposure: No Use of substances other than those prescribed or required for medical reasons: No Have you been hit, kicked, punched, or otherwise hurt by someone within the past year? If so, by whom?: No Are you DNR?: No Advance Directives: Yes Advance Directives Information Provided: No Advance Directives on File: Yes Advance Directives Date on File: 02/26/20 Recently lost weight without trying: No Eating poorly because of decreased appetite: No Nutrition Risks: No Nutritional Risk Meds Allergies Allergy/AdvReac Type Severity Reaction Status Date / Time No Known Allergies Allergy Verified 11/03/20 06:49 [No Known Allergies*] Home Medications Medication Instructions Recorded Confirmed Last Taken Type cholecalciferol (vitamin D3) 50 50 mcg PO DAILY 02/24/20 09/30/20 Unknown History mcg (2,000 unit) capsule montelukast 10 mg tablet 10 mg PO DAILY 02/24/20 10/27/20 Unknown History albuterol sulfate 2 puff INHALATION Q6H PRN 09/30/20 10/27/20 Unknown History celecoxib 1 tab PO BID 09/30/20 10/27/20 Unknown History fluoxetine 1 cap PO DAILY 10/27/20 10/27/20 Unknown History sumatriptan succinate 1 tab PO DIRECTED PRN 10/27/20 10/27/20 Unknown History Exam Exam Date and Time: November 02, 2020 0826 Height,Weight and Vital Signs: Height 5 ft 5 in Weight 104 kg Assessment and Plan Assessment Anesthesia Assessment: Chart Reviewed Documented by User: Vernon Marina MD 11/03/20 08:33 PMFSH Past Medical History Medical History Asthma COVID-19 vaccine series completed Depression Family history of ankylosing spondylitis Fibromyalgia History of postoperative nausea and vomiting History of shingles Increased BMI Joint pain Lumbar back pain with radiculopathy affecting lower extremity Mixed dyslipidemia Osteoarthritis Osteoarthritis of right knee Postlaminectomy syndrome Postmenopause Sacroiliitis Family History Family History Father Arthritis COPD (chronic obstructive pulmonary disease) Afib High cholesterol CVD (cardiovascular disease) Mother Arthritis High cholesterol Graves disease Brother Arthritis Sister Sjogrens syndrome Maternal Grandmother Breast cancer Myoclonus Rheumatoid arthritis PTSD (post-traumatic stress disorder) Sister Lyme disease Fibromyalgia Graves disease Son No problems noted. Daughter No problems noted. Surgical History Surgical History History of breast mammoplasty History of knee surgery History of microdiscectomy History of total abdominal hysterectomy and bilateral salpingo-oophorectomy S/P insertion of spinal cord stimulator Social History Social History Are you a primary child care attendant to a significant other at home: No Do you presently have visiting nurse or other home services: No Alcohol intake: never Patient Tobacco Use Status: Never used Tobacco Second Hand Smoke Exposure: No Use of substances other than those prescribed or required for medical reasons: No Have you been hit, kicked, punched, or otherwise hurt by someone within the past year? If so, by whom?: No Are you DNR?: No Advance Directives: Yes Advance Directives Information Provided: No Advance Directives on File: Yes Advance Directives Date on File: 02/26/20 Recently lost weight without trying: No Eating poorly because of decreased appetite: No Nutrition Risks: No Nutritional Risk Meds Allergies Allergy/AdvReac Type Severity Reaction Status Date / Time No Known Allergies Allergy Verified 11/03/20 06:49 [No Known Allergies*] Home Medications Medication Instructions Recorded Confirmed Last Taken Type cholecalciferol (vitamin D3) 50 50 mcg PO DAILY 02/24/20 09/30/20 Unknown Hist ory mcg (2,000 unit) capsule montelukast 10 mg tablet 10 mg PO DAILY 02/24/20 10/27/20 Unknown History albuterol sulfate 2 puff INHALATION Q6H PRN 09/30/20 10/27/20 Unknown History celecoxib 1 tab PO BID 09/30/20 10/27/20 Unknown History fluoxetine 1 cap PO DAILY 10/27/20 10/27/20 Unknown History sumatriptan succinate 1 tab PO DIRECTED PRN 10/27/20 10/27/20 Unknown History Exam Airway Mallampati Class: I TM Dist: >3cm Neck ROM: Full Loose/Missing/Broken Teeth: No Assessment and Plan Assessment Anesthesia Assessment: Anesthesia Plan Discussed and Chart Reviewed Final Anesthetic Review NPO: Yes ASA Class: III Final Preanesthetic Review: No Changes in Pt Med Stat, Meds/Allgs Chart Reviewed, Consent Obtained/Reviewed and Anes Risks/Benef Reviewed Patient Risk: Intermediate Procedure Risk: Low Anesthetic Plan Anesthetic Plan: GA Disposition: Standard PACU
[2020-11-03] VITALS (7 sets, daily range): BP systolic 128–163; BP diastolic 68–80; PULSE 72–84; RESP 14–18; TEMP 36.3–36.5; O2SAT 95–98
[2020-11-03] MEDS: Lactated Ringers 1,000 ML 100 ML IVCONT (07:16)
--- NOTE | 2020-11-03 07:40 | MHC.SHP ---
Pre-Procedural Eval Section A Date of Service: 11/03/20 The patient is an INPATIENT: No Changes since office visit: No Cold of Flu in the past 2 weeks, No New Medical Problems, No Changes in Medication and No Patient answered all questions The History & Physical has been completed within 30 days and I have reviewed it.: Yes Section B Chief Complaint: medial meniscus tear Allergies: Allergies Allergy/AdvReac Type Severity Reaction Status Date / Time No Known Allergies Allergy Verified 11/03/20 06:49 [No Known Allergies*] Plan I have reviewed the history and physical and performed a pertinent physical examination on my patient. No changes have occurred unless specified.
--- NOTE | 2020-11-03 09:07 | W.PM.OPN ---
Operative Note Operative Note Date of Service: 11/03/20 Narrative: ARTHROSCOPIC SURGERY NOTE SURGEON: Dr Restrepo (Yovana) Instrum CHEESE TESTER: None PREOP DIAGNOSIS: Osteoarthritis with medial meniscal tear right knee POSTOP DIAGNOSIS: Same OPERATIVE PROCEDURE: Arthroscopic medial meniscectomy with debridement right knee CLINICAL NOTE: This lady has had ongoing problems with pain discomfort involving her knee. She had known to have some arthritis in her knee but she had failed really non operative management. Subsequent investigations demonstrated she did have a degenerative tear of the medial meniscus. Therefore after explaining the risks benefits and alternatives and answering all her questions it was mutually agreed upon to carry following procedure MOTION: Full range of motion STABILITY: Cruciate and collateral ligaments intact OPERATIVE DETAILS PREPARATION: GA, STANDARD TECHNIQUE, tourniquet E to 300 mm of mercury for is 8 minutes SURGICAL TIME-OUT: Patient identified; procedure confirmed; site confirmed. Medical and allergy history reviewed. No preoperative antibiotics. No DVT prophylaxis. All other items discussed and agreed upon. INCISIONS: Superolateral, inferolateral, inferomedial stab incisions SYNOVIUM: Normal SYNOVIAL FLUID: Clear MEDIAL COMPARTMENT: There was some complex tearing of the medial meniscus. There is evidence of the previous meniscectomy. This was resected using combination of handheld cutters and power shaver to stable meniscus. The medial femoral condyle was virtually all grade 3 injury with small areas of grade 4. The tibial articular surface had grade 4 injury. He was debrided of loose articular cartilage. INTERCONDYLAR NOTCH: ACL visualized palpated and intact. PCL palpated and intact. LATERAL COMPARTMENT: The lateral meniscus tibial and femoral articular surfaces as well as the popliteus tendon all stable and intact ANTERIOR COMPARTMENT: Medial and lateral gutters clear. Suprapatellar pouch clear. There was grade 3 injury of the medial facet of the patella as well as grade 3 injury over the whole of the femoral sulcus with small areas of grade for. This was debrided as well. CLOSURE: 30 cc of 0.25% Marcaine with epinephrine injected in the knee. Steri-Strips and sterile dressing then applied. RECOMMENDATIONS: 1)Restore motion strength 2)Resume activities as tolerated 3)Discharge today with prescription for analgesic 4)Follow up in the office in 10-14 days
[2020-11-03] MEDS: oxyCODONE HCl Immed Release 5 MG TABLET PO (09:20)
[2020-11-03] MEDS: HYDROmorphone HCl 0.5 MG/0.5 ML SYRINGE 0.25 MG IVPUSH ×2 (09:34→09:41)
== END 2020-11-03 11:11 | disposition home or self-care (01) ==
PROVIDERS: PCP Internal Medicine; Visit Provider Orthopaedic Surgery
PROC: (CPT 29870; principal; 2020-11-03 08:40)
DX: S83.231A Complex tear of medial meniscus, current injury, right knee, initial encounter (principal); M17.11 Unilateral primary osteoarthritis, right knee; X58.XXXA Exposure to other specified factors, initial encounter; Y93.9 Activity, unspecified; Y92.9 Unspecified place or not applicable; Y99.8 Other external cause status; M79.7 Fibromyalgia; J45.909 Unspecified asthma, uncomplicated; Z79.899 Other long term (current) drug therapy; Z87.891 Personal history of nicotine dependence
CPT/HCPCS: 29881; J0131; J0171; J1100; J1170; J2250; J2405; J3010

== ENCOUNTER → 2020-11-15 10:07 | Outpatient (BNVA) | payer OTHER, SELFPAY | PROVIDERS: Visit Provider Physician Assistant ==

== ENCOUNTER → 2020-11-16 13:05 | Outpatient (BNVA) | payer OTHER, SELFPAY | PROVIDERS: Visit Provider Anesthesiology ==

== ENCOUNTER 2020-11-23 08:03 | Outpatient (REF) | payer OTHER, SELFPAY ==
--- NOTE | ~2020-11-23 | XR_ITS ---
EXAMINATION: CERVICAL SPINE. BILATERAL AP KNEE STANDING. RIGHT KNEE. CLINICAL INFORMATION: Neck pain. Right knee pain. COMPARISON: None TECHNIQUE: Cervical spine 4 views. AP bilateral neural standing one view. Right knee 2 views. FINDINGS: CERVICAL SPINE: There is mild straightening of cervical lordosis with loss of C5-C6 and C6-C7 disc heights with moderate ventral spondylosis. There is no visible acute fracture or dislocation seen. There is mild bilateral C6-C7, C5-C6 facet joint arthropathy and hypertrophy. There are bilateral C7 cervical ribs. AP BILATERAL KNEE: There is moderate right and mild medial and lateral left knee and mild lateral compartment right knee loss of joint space. Periapical spurring is seen in the medial compartment right knee. No loose body seen. There is mild genu valgus deformity of the right knee. RIGHT KNEE: There is moderate loss of patellofemoral compartment joint space with moderate anterior superior patellar enthesophytes. There is mild spur joint effusion. No loose bodies or bony erosive changes. XR/XR knee standing BI IMPRESSION: Degenerative disc changes C5-C6 and C6-C7 disc levels with ventral and posterior spondylosis. There is bilateral facet joint arthropathy at the C5-C6 and C6-C7 disc levels. Mild straightening of cervical lordosis likely spasm. Moderate degenerative changes medial compartment right knee with periarticular spurring. Mild degenerative changes medial and lateral compartment left knee, lateral compartment and patellofemoral compartment right knee. There is anterior superior patellar enthesophytes. There is mild suprapatellar joint effusion. No loose bodies or bony erosive changes seen.
--- NOTE | ~2020-11-23 | XR_ITS ---
EXAMINATION: CERVICAL SPINE. BILATERAL AP KNEE STANDING. RIGHT KNEE. CLINICAL INFORMATION: Neck pain. Right knee pain. COMPARISON: None TECHNIQUE: Cervical spine 4 views. AP bilateral neural standing one view. Right knee 2 views. FINDINGS: CERVICAL SPINE: There is mild straightening of cervical lordosis with loss of C5-C6 and C6-C7 disc heights with moderate ventral spondylosis. There is no visible acute fracture or dislocation seen. There is mild bilateral C6-C7, C5-C6 facet joint arthropathy and hypertrophy. There are bilateral C7 cervical ribs. AP BILATERAL KNEE: There is moderate right and mild medial and lateral left knee and mild lateral compartment right knee loss of joint space. Periapical spurring is seen in the medial compartment right knee. No loose body seen. There is mild genu valgus deformity of the right knee. RIGHT KNEE: There is moderate loss of patellofemoral compartment joint space with moderate anterior superior patellar enthesophytes. There is mild spur joint effusion. No loose bodies or bony erosive changes. XR/XR knee RT 2V IMPRESSION: Degenerative disc changes C5-C6 and C6-C7 disc levels with ventral and posterior spondylosis. There is bilateral facet joint arthropathy at the C5-C6 and C6-C7 disc levels. Mild straightening of cervical lordosis likely spasm. Moderate degenerative changes medial compartment right knee with periarticular spurring. Mild degenerative changes medial and lateral compartment left knee, lateral compartment and patellofemoral compartment right knee. There is anterior superior patellar enthesophytes. There is mild suprapatellar joint effusion. No loose bodies or bony erosive changes seen.
--- NOTE | ~2020-11-23 | XR_ITS ---
EXAMINATION: CERVICAL SPINE. BILATERAL AP KNEE STANDING. RIGHT KNEE. CLINICAL INFORMATION: Neck pain. Right knee pain. COMPARISON: None TECHNIQUE: Cervical spine 4 views. AP bilateral neural standing one view. Right knee 2 views. FINDINGS: CERVICAL SPINE: There is mild straightening of cervical lordosis with loss of C5-C6 and C6-C7 disc heights with moderate ventral spondylosis. There is no visible acute fracture or dislocation seen. There is mild bilateral C6-C7, C5-C6 facet joint arthropathy and hypertrophy. There are bilateral C7 cervical ribs. AP BILATERAL KNEE: There is moderate right and mild medial and lateral left knee and mild lateral compartment right knee loss of joint space. Periapical spurring is seen in the medial compartment right knee. No loose body seen. There is mild genu valgus deformity of the right knee. RIGHT KNEE: There is moderate loss of patellofemoral compartment joint space with moderate anterior superior patellar enthesophytes. There is mild spur joint effusion. No loose bodies or bony erosive changes. XR/XR cervical spine 2V IMPRESSION: Degenerative disc changes C5-C6 and C6-C7 disc levels with ventral and posterior spondylosis. There is bilateral facet joint arthropathy at the C5-C6 and C6-C7 disc levels. Mild straightening of cervical lordosis likely spasm. Moderate degenerative changes medial compartment right knee with periarticular spurring. Mild degenerative changes medial and lateral compartment left knee, lateral compartment and patellofemoral compartment right knee. There is anterior superior patellar enthesophytes. There is mild suprapatellar joint effusion. No loose bodies or bony erosive changes seen.
== END 2020-11-23 08:04 | disposition home or self-care (01) ==
LOC: HO.HMGCX 08:03
PROVIDERS: PCP Internal Medicine; Visit Provider Nurse Practitioner Family
DX: Z13.89 Encounter for screening for other disorder (principal)
CPT/HCPCS: 72040; 73560; 73565

== ENCOUNTER 2020-11-30 07:30 | Outpatient (REF) | payer OTHER, SELFPAY ==
[2020-11-30 11:05] LABS: MANUAL DIFF FLAG NO
[2020-11-30 11:24] LABS: Basophils Absolute Auto 0.1 X10*3/uL (0.0-0.2); Eosinophils Absolute Auto 0.3 X10*3/uL (0.0-0.4); Eosinophils Percent Auto 4.1 % (0-4); Hematocrit 45.6 % (37-47); Hemoglobin 13.9 g/dl (12.0-16.0); Imm Gran Abs Auto 0.02 X10*3/uL (0.00-0.03); Imm Gran Pct Auto 0.3 % (0.0-0.4); Lymphocytes Percent Auto 33.6 % (20-40); Mean Corpuscular HGB Conc 30.5 g/dl (31.0-35.0); Mean Corpuscular Volume 85.4 fL (80-98); Mean Platelet Volume 10.5 fL (9.4-12.3); Monocytes Absolute Auto 0.5 X10*3/uL (0.1-1.2); Monocytes Percent Auto 8.3 % (2-11); Neutrophils Absolute Auto 3.2 X10*3/uL (2.0-8.3); Neutrophils Percent Auto 52.7 % (45-73); Platelet Count 294 X10*3/uL (160-400); Red Blood Count 5.34 X10*6/uL (4.20-5.50); Red Cell Distribution Width 13.6 % (11.0-16.0)
[2020-11-30 12:08] LABS: TSH reflex Free T4 1.57 uIU/mL (0.32-4.0); Vitamin D 25-OH Total 41.8 ng/mL (>30)
[2020-11-30 12:18] LABS: Folate 13.4 ng/mL (> or = 4.0); Vitamin B12 382 pg/mL (200-900)
== END 2020-11-30 07:31 | disposition home or self-care (01) ==
LOC: HO.HMGCLDS 07:30
PROVIDERS: PCP Internal Medicine; Visit Provider Internal Medicine
DX: R53.83 Other fatigue (principal); Z78.0 Asymptomatic menopausal state
CPT/HCPCS: 36415; 82306; 82607; 82746; 84443; 85025

== ENCOUNTER 2021-01-12 10:02 | Outpatient (REF) | payer OTHER, SELFPAY ==
[2021-01-12 11:55] LABS: Alanine Aminotransferase 43 U/L (0-31); Aspartate Amino Transferase 25 U/L (5-31); Cholesterol 264 mg/dL; HDL Cholesterol 46 mg/dL; LDL Cholesterol Calculated 143 mg/dl; Triglycerides 376 mg/dL
[2021-01-12 12:08] LABS: Thyroid Stimulating Hormone 1.65 uIU/mL (0.32-4.0)
[2021-01-14 05:11] LABS: Thyroid Peroxidase Antibodies <1 IU/mL (<9)
[2021-01-18 09:31] LABS: Triiodothyronine T3 Reverse 10 ng/dL (8-25)
[2021-01-19 22:37] LABS: Testosterone, Free 2.1 pg/mL (0.1-6.4); Testosterone, Total 13 ng/dL (2-45)
== END 2021-01-12 10:03 | disposition home or self-care (01) ==
LOC: HO.HMGCLDS 10:02
PROVIDERS: PCP Internal Medicine; Visit Provider Internal Medicine
DX: E78.2 Mixed hyperlipidemia (principal); E03.9 Hypothyroidism, unspecified; R53.83 Other fatigue; Z78.0 Asymptomatic menopausal state; Z83.49 Family history of other endocrine, nutritional and metabolic diseases
CPT/HCPCS: 36415; 80061; 82306; 84402; 84403; 84439; 84443; 84450; 84460; 84482; 86376

== ENCOUNTER 2021-01-20 10:06 | Outpatient (REF) | payer OTHER, SELFPAY ==
[2021-01-20 11:34] LABS: Appearance Urine CLEAR; Color Urine YELLOW; Glucose Urine UA NEG (NEG); Leukocyte Esterase Urine NEG (NEG); Nitrite Urine NEG (NEG); Specific Gravity - Urine >= 1.030 (1.005-1.025); Urine Blood NEG (NEG); Urine Ketones NEG (NEG); Urine Protein NEG (NEG-TRACE)
== END 2021-01-20 10:07 | disposition home or self-care (01) ==
LOC: HO.HMGCLDS 10:06
PROVIDERS: PCP Internal Medicine; Visit Provider Internal Medicine
DX: N39.0 Urinary tract infection, site not specified (principal)
CPT/HCPCS: 81003

== ENCOUNTER → 2021-02-20 10:09 | Outpatient (BNVA) | payer OTHER, SELFPAY | PROVIDERS: PCP Internal Medicine; Visit Provider Anesthesiology ==

== ENCOUNTER 2021-02-22 07:15 | Outpatient (REF) | payer OTHER, SELFPAY ==
[2021-02-22 12:09] LABS: Anion Gap 14 (12-20); Blood Urea Nitrogen 23 mg/dL (9-16); Calcium 9.6 mg/dL (8.4-10.2); Carbon Dioxide 26 mmol/L (22-29); Chloride 104 mmol/L (96-108); Estimated Glomerular Filt Rate > 60; Glucose Random 121 mg/dL (60-115); Potassium 4.7 mmol/L (3.3-5.1); Sodium 139 mmol/L (135-145)
== END 2021-02-22 07:16 | disposition home or self-care (01) ==
LOC: HO.HMGCLDS 07:15
PROVIDERS: PCP Internal Medicine; Visit Provider Anesthesiology
DX: M96.1 Postlaminectomy syndrome, not elsewhere classified (principal)
CPT/HCPCS: 36415; 80048

== ENCOUNTER → 2021-02-23 12:50 | Outpatient (BNVA) | payer OTHER, SELFPAY | PROVIDERS: PCP Internal Medicine; Visit Provider Physician Assistant | DX: M17.11 Unilateral primary osteoarthritis, right knee (principal) | CPT/HCPCS: 20610; J1040 ==

== ENCOUNTER 2021-02-28 13:22 | Outpatient (REF) | payer OTHER, SELFPAY ==
--- NOTE | ~2021-02-28 | MR_ITS ---
EXAMINATION: MR LUMBAR SPINE WITHOUT AND WITH CONTRAST CLINICAL INFORMATION: Postlaminectomy syndrome. COMPARISON: Lumbar spine MRI from 07/24/2019. TECHNIQUE: MRI of the lumbar spine was obtained using routine sequences without and following the administration of 10 mL of Gadavist intravenous contrast. FINDINGS: Normal anatomic alignment. Normal, homogeneous marrow signal throughout. The vertebral body heights are maintained. Mild degenerative disc disease from L2-L5 with partial loss of disc height and desiccation. T2 hyperintense annular fissures at L2-L3 and L4-L5. The conus medullaris terminates at the level of L1. The distal spinal cord is normal in appearance. Changes of L4-L5 laminotomy. Mild epidural enhancement within the laminotomy bed. No additional abnormal contrast enhancement. Mild to moderate subcutaneous edema within the soft tissues of the back from L2-S2. No discrete fluid collection. Left-sided peripheral nerve stimulator. No additional significant abnormalities of the paraspinal musculature. Limited evaluation of the intra-abdominal structures without significant abnormalities. The abdominal aorta is of normal contour and caliber. AXIAL SPINAL LEVELS: L1-L2: Normal annular contour. There is moderate bilateral facet joint arthropathy. There is no neural foraminal stenosis. There is no spinal canal stenosis. L2-L3: Shallow diffuse disc bulge.. There is moderate bilateral facet joint arthropathy. There is no neural foraminal stenosis. There is mild spinal canal stenosis. L3-L4: Mild diffuse disc bulge. There is severe right and moderate left facet joint arthropathy. There is mild bilateral neural foraminal stenosis. There is narrowing of the right subarticular zone with mild to moderate spinal canal stenosis. L4-L5: Moderate diffuse disc bulge with superimposed shallow central disc protrusion. There is severe bilateral facet joint arthropathy. There is mild to moderate bilateral neural foraminal stenosis. Laminotomy changes. Posterior decompression. There is stenosis of the subarticular zones with minimal narrowing of the stenosis centrally. L5-S1: Mild diffuse disc bulge with superimposed shallow right foraminal disc protrusion. There is severe left and moderate right facet joint arthropathy. There is mild bilateral neural foraminal stenosis. There is effacement of the thecal sac exacerbated by prominent epidural lipomatous tissue. MR/MR lumbar spine wo/w con IMPRESSION: Changes of L4-L5 laminotomy. Moderate multilevel degenerative spondyloarthropathy of the lumbar spine as described in detail above. Most notably, there is mild to moderate spinal canal stenosis at L3-L4. Mild spinal canal stenosis at L2-L3. Minimal narrowing of the spinal canal at L4-L5. Epidural lipomatous tissue narrows the thecal sac at L5-S1. There are narrowings/stenoses of the subarticular zones at L3-L4 and L4-L5. Mild to moderate neural foraminal stenoses at L4-L5. Compared to exam from 07/24/2019, there has been improvement in spinal canal stenosis at L4-L5. However, there has been mild worsening of spinal canal stenosis at L3-L4.
== END 2021-02-28 13:23 | disposition home or self-care (01) ==
LOC: HO.MRI 13:22
PROVIDERS: Visit Provider Anesthesiology
DX: M96.1 Postlaminectomy syndrome, not elsewhere classified (principal)
CPT/HCPCS: 72158; A9585

== ENCOUNTER → 2021-03-22 08:49 | Outpatient (BNVA) | payer OTHER, SELFPAY | PROVIDERS: PCP Internal Medicine; Visit Provider Anesthesiology ==

== ENCOUNTER 2021-05-26 08:54 | Day surgery (SDC) | payer OTHER, SELFPAY ==
[2021-05-22 11:28] VITALS: BMI 38.1
--- NOTE | 2021-05-25 12:16 | P.CONAN_ITS ---
Documented by User: Tamia Ash NP 06/08/21 12:04 HPI - Anesthesia Eval Consult details Narrative: 60yo F for Caudal Epidural Steroid Injection with catheter PMFSH Active Problems Active Problems: All Active Problems (Updated 05/22/21 @ 11:21 by Kitty Stevenson RN) Postlaminectomy syndrome (Acute) Soft tissue injury of right knee (Acute) Tear of medial meniscus of right knee (Acute) Osteoarthritis of right knee (Acute) Cervical pain (neck) (Acute) Postlaminectomy syndrome (Acute) Chronic fatigue (Acute) Family history of thyroid disease (Acute) Spondylosis of cervical spine (Acute) Increased BMI (Acute) Osteoarthritis of right knee (Acute) Postmenopause (Acute) Mixed dyslipidemia (Acute) Depression (Acute) Joint pain (Acute) Sacroiliitis (Acute) Lumbar back pain with radiculopathy affecting lower extremity (Acute) Past Medical History Medical History (Updated 07/20/21 @ 00:10 by Julia Fiore MD) Allergic rhinitis Asthma Chronic fatigue Chronic GERD COVID-19 vaccine series completed Family history of ankylosing spondylitis Family history of thyroid disease Fibromyalgia History of postoperative nausea and vomiting History of shingles Increased BMI Lumbar back pain with radiculopathy affecting lower extremity Mixed dyslipidemia Odynophagia Postlaminectomy syndrome Postmenopause Sacroiliitis Spondylosis of cervical spine Family History Family History (Updated 07/19/21 @ 10:30 by Neida Martin [facility]) Father Arthritis COPD (chronic obstructive pulmonary disease) Afib High cholesterol CVD (cardiovascular disease) Mother Arthritis High cholesterol Graves disease Brother Arthritis Sister Sjogrens syndrome Mental health disorder Maternal Grandmother Breast cancer Myoclonus Rheumatoid arthritis PTSD (post-traumatic stress disorder) Sister Lyme disease Fibromyalgia Graves disease Son No problems noted. Daughter No problems noted. Maternal Aunt Mental health disorder Family history of problems with anesthesia: No Surgical History Surgical History (Updated 05/22/21 @ 11:22 by Kitty Stevenson RN) History of breast mammoplasty History of knee surgery History of microdiscectomy History of total abdominal hysterectomy and bilateral salpingo-oophorectomy Hx of arthroscopic knee surgery S/P insertion of spinal cord stimulator History of Problems with Anesthesia: No Social History Social History Housing: House Are you a primary cattle care worker to a significant other at home: No Do you presently have visiting nurse or other home services: No Alcohol intake: never Patient Tobacco Use Status: Never used Tobacco e-Cigarette/Vaping Use: Never Used Second Hand Smoke Exposure: No Advance Directives Date on File: 02/26/20 service: No Current occupational status: employed Cognitive needs: No Hearing needs: No Vision needs: No Meds Allergies Allergy/AdvReac Type Severity Reaction Status Date / Time No Known Allergies Allergy Verified 07/19/21 10:41 [No Known Allergies*] Home Medications Medication Instructions Recorded Confirmed Last Taken Type albuterol sulfate 90 mcg/actuation 2 puff INHALATION Q6H PRN 09/30/20 07/21/21 Unknown History aerosol inhaler sumatriptan succinate 100 mg tablet 1 tab PO DIRECTED PRN 10/27/20 07/21/21 Unknown History duloxetine 30 mg capsule,delayed 30 mg PO ONCE cap 07/19/21 07/21/21 Unknown History release montelukast 10 mg tablet 10 mg PO DAILY 07/19/21 07/21/21 Unknown History cetirizine 10 mg tablet 1 tab PO DAILY 07/21/21 07/21/21 Unknown History Exam Exam Date and Time: May 25, 2021 1216 Height,Weight and Vital Signs: Height 5 ft 5 in Weight 104 kg Pertinent Lab Results Pertinent Lab Results: Laboratory Tests 11/30/20 02/22/21 07:38 07:25 WBC 6.0 Hgb 13.9 Hct 45.6 Plt Count 294 Sodium 139 Potassium 4.7 Chloride 104 Carbon Dioxide 26 BUN 23 H Creatinine 0.84 Assessment and Plan Assessment Anesthesia Assessment: Chart Reviewed Final Anesthetic Review Family History of Problems with Anesthesia: No History of Problems with Anesthesia: No Documented by User: Jean-Paul Wang MD 07/26/21 00:29 [facility] Past Medical History Medical History (Updated 07/20/21 @ 00:10 by Julia Fiore MD) Allergic rhinitis Asthma Chronic fatigue Chronic GERD COVID-19 vaccine series completed Family history of ankylosing spondylitis Family history of thyroid disease Fibromyalgia History of postoperative nausea and vomiting History of shingles Increased BMI Lumbar back pain with radiculopathy affecting lower extremity Mixed dyslipidemia Odynophagia Postlaminectomy syndrome Postmenopause Sacroiliitis Spondylosis of cervical spine Family History Family History (Updated 07/19/21 @ 10:30 by Neida Martin CMA) Father Arthritis COPD (chronic obstructive pulmonary disease) Afib High cholesterol CVD (cardiovascular disease) Mother Arthritis High cholesterol Graves disease Brother Arthritis Sister Sjogrens syndrome Mental health disorder Maternal Grandmother Breast cancer Myoclonus Rheumatoid arthritis PTSD (post-traumatic stress disorder) Sister Lyme disease Fibromyalgia Graves disease Son No problems noted. Daughter No problems noted. Maternal Aunt Mental health disorder Surgical History Surgical History (Updated 05/22/21 @ 11:22 by Kitty Stevenson RN) History of breast mammoplasty History of knee surgery History of microdiscectomy History of total abdominal hysterectomy and bilateral salpingo-oophorectomy Hx of arthroscopic knee surgery S/P insertion of spinal cord stimulator Social History Social History Housing: House Are you a primary cattle care worker to a significant other at home: No Do you presently have visiting nurse or other home services: No Alcohol intake: never Patient Tobacco Use Status: Never used Tobacco e-Cigarette/Vaping Use: Never Used Second Hand Smoke Exposure: No Advance Directives Date on File: 02/26/20 service: No Current occupational status: employed Cognitive needs: No Hearing needs: No Vision needs: No Meds Allergies Allergy/AdvReac Type Severity Reaction Status Date / Time No Known Allergies Allergy Verified 07/19/21 10:41 [No Known Allergies*] Home Medications Medication Instructions Recorded Confirmed Last Taken Type albuterol sulfate 90 mcg/actuation 2 puff INHALATION Q6H PRN 09/30/20 07/21/21 Unknown History aerosol inhaler sumatriptan succinate 100 mg tablet 1 tab PO DIRECTED PRN 10/27/20 07/21/21 Unknown History duloxetine 30 mg capsule,delayed 30 mg PO ONCE cap 07/19/21 07/21/21 Unknown History release montelukast 10 mg tablet 10 mg PO DAILY 07/19/21 07/21/21 Unknown History cetirizine 10 mg tablet 1 tab PO DAILY 07/21/21 07/21/21 Unknown History Exam Airway Mallampati Class: I TM Dist: >3cm Neck ROM: Limited Loose/Missing/Broken Teeth: Yes (Fillings ) Assessment and Plan Assessment Anesthesia Assessment: Anesthesia Plan Discussed Final Anesthetic Review NPO: Yes ASA Class: III Final Preanesthetic Review: Meds/Allgs Chart Reviewed and Anes Risks/Benef Reviewed Patient Risk: High Procedure Risk: Intermediate Anesthetic Plan Anesthetic Plan: MAC: Disposition: Standard PACU
--- NOTE | ~2021-05-26 | FL_ITS ---
EXAMINATION: XR FLUOROSCOPY WITH IMAGES CLINICAL INFORMATION: Epidural injection COMPARISON: 01/11/2020 TECHNIQUE: Fluoroscopy performed by Dr. Ander Ellis. Fluoroscopy time: 0.2 minutes DAP: 1.98 mGycm2 Images: 2 FL/FL guidance in OR FINDINGS/IMPRESSION: Images demonstrate catheters projecting over the right sacral ala. Please see operative report.
[2021-05-26 09:08] VITALS: BP 143/82; PULSE 77; RESP 18; TEMP 36.8; O2SAT 97
[2021-05-26] MEDS: Lactated Ringers 1,000 ML 100 ML IVCONT (09:56)
--- NOTE | 2021-05-26 10:47 | MHC.SHP ---
Pre-Procedural Eval Section A Date of Service: 05/26/21 Section B Chief Complaint: postlaminectomy syndrome Details of Present Illness: as above Relevant Family History (Specify if Yes): No Relevant Social History: None Present Medications: None Medical History: No relevant PMH History of Previous Operations: Relevant previous surgery/procedure and date(s) Allergies: Allergies Allergy/AdvReac Type Severity Reaction Status Date / Time No Known Allergies Allergy Verified 05/26/21 09:26 [No Known Allergies*] Review of Systems Sugical H&P ROS: Negative: Constitution, Cardiovascular, Respiratory, Neurological, Psychiatric, Hem-Onc, Allergic/Immunologic, Gastrointestinal, Genitourinary, Musculoskeletal, Integumentary, Endocrine and Eyes/Ears/Nose/Throat Exam Surgical H&P Exam: Normal: HEENT, Normal: Heart, Normal: Lungs, Normal: Extremities, Normal: Abdomen, Normal: Skin and Normal: Neurological Plan Diagnosis/Plan: Unchanged I have reviewed the history and physical and performed a pertinent physical examination on my patient. No changes have occurred unless specified.
[2021-05-26 11:32] VITALS: BP 132/74; PULSE 70; RESP 17; TEMP 36.7; O2SAT 97
[2021-05-26 11:47] VITALS: BP 124/76; PULSE 67; RESP 18; TEMP 36.4; O2SAT 98
--- NOTE | 2021-05-26 12:42 | PM.OP ---
Brief Operative Note Date of Service: 05/26/21 Pre-op diagnosis: Postlaminectomy syndrome low back pain. Post-op diagnosis: same Procedure: As above Implants: none Surgeon: Ander Ellis MD Anesthesia: MAC Was an Grease And Tallow Pumper used for this Procedure?: No Estimated blood loss (mL): 0 Disposition: PACU
--- NOTE | 2021-05-26 12:43 | W.PM.OPN ---
Operative Note Operative Note Date of Service: 05/26/21 Narrative: Seema is very pleasant 60 years old female who came today to the operating room for the treatment of the low back pain with caudal epidural steroid injection. After explaining the patient informed consent she was brought to the operating room he was positioned on the operating table prone with a pillow under her pelvis. [place] Society monitors were applied and patient was deeply sedated. time-out was performed delineating correct site and side of the procedure and risks associated with the procedure. No antibiotics required for this procedure. No DVT prophylaxis required for this procedure. Bilateral buttocks and intergluteal crease were prepped with ChloraPrep and draped with sterile utility towels. Sterilely draped C-arm was brought over the operating field and picture of the sacral bone was demonstrated on the screen. 2 cm below the most lowest point of sacral bone on the midline was injected with small amount of lidocaine 2%. After that 10 cm Touhy needle was inserted through the skin wheal and advanced to the caudal canal on anterior posterior and lateral views. When on the lateral view the needle was inserted into the caudal canal injection of the contrast was performed demonstrating epidural spread of the contrast. After that epidural catheter was inserted through the needle and advanced to were L5 S1 epidural interspace. Injection of the contrast was performed demonstrating the position of the catheter. After that injection of the normal saline 0.9% 20 cc was performed into the catheter. After that injection of the lidocaine 1% mixed with Kenalog 80 mg was injected into the catheter. Upon completion of the injections the catheter was withdrawn sterile dressing was applied. The patient tolerated procedure well. She was taking outside of the operating room to recovery room where she recovered uneventfully.
== END 2021-05-26 12:30 | disposition home or self-care (01) ==
PROVIDERS: PCP Internal Medicine; Visit Provider Anesthesiology
PROC: 3E0R3GC Introduction of Other Therapeutic Substance into Spinal Canal, Percutaneous Approach (ICD-10-PCS; CPT 62322; principal; 2021-05-26 10:40)
DX: M54.50 Low back pain, unspecified (principal)
CPT/HCPCS: 62323; J2250; J3010; J3300; Q9967

== ENCOUNTER → 2021-06-14 08:36 | Outpatient (BNVA) | payer OTHER, SELFPAY | PROVIDERS: PCP Internal Medicine; Visit Provider Anesthesiology ==

== ENCOUNTER 2021-07-06 07:05 | Outpatient (REF) | payer OTHER, SELFPAY ==
[2021-07-06 12:07] LABS: Alanine Aminotransferase 46 U/L (0-31); Aspartate Amino Transferase 25 U/L (5-31); Cholesterol 254 mg/dL; HDL Cholesterol 61 mg/dL; LDL Cholesterol Calculated 151 mg/dl; Triglycerides 210 mg/dL
== END 2021-07-06 07:06 | disposition home or self-care (01) ==
LOC: HO.HMGCLDS 07:05
PROVIDERS: Visit Provider Internal Medicine
DX: E78.2 Mixed hyperlipidemia (principal)
CPT/HCPCS: 36415; 80061; 84450; 84460

== ENCOUNTER 2021-07-27 09:55 | Day surgery (SDC) | payer OTHER, SELFPAY ==
--- NOTE | 2021-07-26 10:11 | HO.ANESPROP2 ---
Documented by User: Tamia Ash NP 07/26/21 10:19 HPI - Anesthesia Eval Consult details Narrative: 60yo F for Lumbar Spinal Cord Stimulation Trial s/p epidural injection 05/2021 with MAC PMFSH Active Problems Active Problems: All Active Problems (Updated 07/20/21 @ 00:10 by Julia Fiore MD) Mixed dyslipidemia (Acute) Allergic rhinitis (Acute) Chronic GERD (Acute) Odynophagia (Acute) Postlaminectomy syndrome (Acute) Soft tissue injury of right knee (Acute) Tear of medial meniscus of right knee (Acute) Osteoarthritis of right knee (Acute) Cervical pain (neck) (Acute) Postlaminectomy syndrome (Acute) Chronic fatigue (Acute) Family history of thyroid disease (Acute) Spondylosis of cervical spine (Acute) Increased BMI (Acute) Postmenopause (Acute) Mixed dyslipidemia (Acute) Sacroiliitis (Acute) Lumbar back pain with radiculopathy affecting lower extremity (Acute) Past Medical History Medical History (Updated 07/20/21 @ 00:10 by Julia Fiore MD) Allergic rhinitis Asthma Chronic fatigue Chronic GERD COVID-19 vaccine series completed Family history of ankylosing spondylitis Family history of thyroid disease Fibromyalgia History of postoperative nausea and vomiting History of shingles Increased BMI Lumbar back pain with radiculopathy affecting lower extremity Mixed dyslipidemia Odynophagia Postlaminectomy syndrome Postmenopause Sacroiliitis Spondylosis of cervical spine Family History Family History (Updated 07/19/21 @ 10:30 by Neida Martin CMA) Father Arthritis COPD (chronic obstructive pulmonary disease) Afib High cholesterol CVD (cardiovascular disease) Mother Arthritis High cholesterol Graves disease Brother Arthritis Sister Sjogrens syndrome Mental health disorder Maternal Grandmother Breast cancer Myoclonus Rheumatoid arthritis PTSD (post-traumatic stress disorder) Sister Lyme disease Fibromyalgia Graves disease Son No problems noted. Daughter No problems noted. Maternal Aunt Mental health disorder Family history of problems with anesthesia: No Surgical History Surgical History (Updated 05/22/21 @ 11:22 by Kitty Stevenson RN) History of breast mammoplasty History of knee surgery History of microdiscectomy History of total abdominal hysterectomy and bilateral salpingo-oophorectomy Hx of arthroscopic knee surgery S/P insertion of spinal cord stimulator History of Problems with Anesthesia: No Social History Social History Housing: House Are you a primary youth care specialist to a significant other at home: No Do you presently have visiting nurse or other home services: No Alcohol intake: never Patient Tobacco Use Status: Never used Tobacco e-Cigarette/Vaping Use: Never Used Second Hand Smoke Exposure: No Use of substances other than those prescribed or required for medical reasons: No Are you DNR?: No Advance Directives: No Advance Directives Information Provided: Yes Advance Directives Date on File: 02/26/20 service: No Current occupational status: employed Cognitive needs: No Hearing needs: No Vision needs: No Meds Allergies Allergy/AdvReac Type Severity Reaction Status Date / Time No Known Allergies Allergy Verified 07/19/21 10:41 [No Known Allergies*] Home Medications Medication Instructions Recorded Confirmed Last Taken Type albuterol sulfate 90 mcg/actuation 2 puff INHALATION Q6H PRN 09/30/20 07/21/21 Unknown History aerosol inhaler sumatriptan succinate 100 mg tablet 1 tab PO DIRECTED PRN 10/27/20 07/21/21 Unknown History duloxetine 30 mg capsule,delayed 30 mg PO ONCE cap 07/19/21 07/21/21 Unknown History release montelukast 10 mg tablet 10 mg PO DAILY 07/19/21 07/21/21 Unknown History cetirizine 10 mg tablet 1 tab PO DAILY 07/21/21 07/21/21 07/27/21 History Exam Exam Date and Time: July 26, 2021 1011 Pertinent Lab Results Pertinent Lab Results: Laboratory Tests ? 11/30/20 02/22/21 ? 07:38 07:25 WBC ?6.0 ? Hgb ?13.9 ? Hct ?45.6 ? Plt Count ?294 ? Sodium ? ?139 Potassium ? ?4.7 Chloride ? ?104 Carbon Dioxide ? ?26 BUN ? ?23 H Creatinine ? ?0.84 Assessment and Plan Assessment Anesthesia Assessment: Chart Reviewed Final Anesthetic Review Family History of Problems with Anesthesia: No History of Problems with Anesthesia: No Documented by User: Jean-Paul Wang MD 07/27/21 13:51 HPI - Anesthesia Eval Consult details Narrative: 60yo F for Lumbar Spinal Cord Stimulation Trial s/p epidural injection 05/2021 with MAC back pain with radiation to b/l LE with tingling and numbness PMFSH Past Medical History Medical History (Updated 07/20/21 @ 00:10 by Julia Fiore MD) Allergic rhinitis Asthma Chronic fatigue Chronic GERD COVID-19 vaccine series completed Family history of ankylosing spondylitis Family history of thyroid disease Fibromyalgia History of postoperative nausea and vomiting History of shingles Increased BMI Lumbar back pain with radiculopathy affecting lower extremity Mixed dyslipidemia Odynophagia Postlaminectomy syndrome Postmenopause Sacroiliitis Spondylosis of cervical spine Family History Family History (Updated 07/19/21 @ 10:30 by Neida Martin CMA) Father Arthritis COPD (chronic obstructive pulmonary disease) Afib High cholesterol CVD (cardiovascular disease) Mother Arthritis High cholesterol Graves disease Brother Arthritis Sister Sjogrens syndrome Mental health disorder Maternal Grandmother Breast cancer Myoclonus Rheumatoid arthritis PTSD (post-traumatic stress disorder) Sister Lyme disease Fibromyalgia Graves disease Son No problems noted. Daughter No problems noted. Maternal Aunt Mental health disorder Surgical History Surgical History (Updated 05/22/21 @ 11:22 by Kitty Stevenson RN) History of breast mammoplasty History of knee surgery History of microdiscectomy History of total abdominal hysterectomy and bilateral salpingo-oophorectomy Hx of arthroscopic knee surgery S/P insertion of spinal cord stimulator History of Problems with Anesthesia: Yes (Ponv ) Social History Social History Housing: House Are you a primary youth care specialist to a significant other at home: No Do you presently have visiting nurse or other home services: No Alcohol intake: never Patient Tobacco Use Status: Never used Tobacco e-Cigarette/Vaping Use: Never Used Second Hand Smoke Exposure: No Use of substances other than those prescribed or required for medical reasons: No Are you DNR?: No Advance Directives: No Advance Directives Information Provided: Yes Advance Directives Date on File: 02/26/20 service: No Current occupational status: employed Cognitive needs: No Hearing needs: No Vision needs: No Meds Allergies Allergy/AdvReac Type Severity Reaction Status Date / Time No Known Allergies Allergy Verified 07/19/21 10:41 [No Known Allergies*] Home Medications Medication Instructions Recorded Confirmed Last Taken Type albuterol sulfate 90 mcg/actuation 2 puff INHALATION Q6H PRN 09/30/20 07/21/21 Unknown History aerosol inhaler sumatriptan succinate 100 mg tablet 1 tab PO DIRECTED PRN 10/27/20 07/21/21 Unknown History duloxetine 30 mg capsule,delayed 30 mg PO ONCE cap 07/19/21 07/21/21 Unknown History release montelukast 10 mg tablet 10 mg PO DAILY 07/19/21 07/21/21 Unknown History cetirizine 10 mg tablet 1 tab PO DAILY 07/21/21 07/21/21 07/27/21 History Exam Airway Mallampati Class: III TM Dist: >3cm Neck ROM: Full Loose/Missing/Broken Teeth: Yes (Chipped ) Heart: S1, S2 Lungs: distant breath sounds b/l Assessment and Plan Assessment Anesthesia Assessment: Anesthesia Plan Discussed Final Anesthetic Review History of Problems with Anesthesia: Yes (Ponv ) NPO: Yes ASA Class: III Final Preanesthetic Review: No Changes in Pt Med Stat, Meds/Allgs Chart Reviewed, Consent Obtained/Reviewed and Anes Risks/Benef Reviewed Patient Risk: Intermediate Procedure Risk: Intermediate Anesthetic Plan Anesthetic Plan: MAC: Disposition: Standard PACU
--- NOTE | ~2021-07-27 | FL_ITS ---
EXAMINATION: XR FLUOROSCOPY WITH IMAGES CLINICAL INFORMATION: Spinal cord stimulator trial COMPARISON: Fluoroscopic spot view 10/07/2020, MR lumbar spine 02/28/2021 TECHNIQUE: Fluoroscopy performed by Dr. Ander Ellis. Fluoroscopy time: 3.7 minutes DAP: 24.6 Gycm2 Images: 2 FINDINGS: There are 2 stimulator leads seen within the posterior spinal canal. Leads extends extends to midthoracic region, at level of superior and inferior endplates approximately T9. FL/FL guidance in OR IMPRESSION: Fluoroscopy for pain management procedure.
[2021-07-27 08:32] VITALS: BMI 40.6
--- NOTE | 2021-07-27 09:45 | P.OP_ITS ---
Operative Note Operative Note Date of Service: 07/27/21 Narrative: Seema is very pleasant 60 years old female? who came today into the operating room for trial of? Nevro spinal cord stimulator for the treatment of axial lower back pain. Preoperatively patient received cefasolin 2 g approximately 30 minutes before the procedure. After obtaining informed consent the patient was brought to the operating room, She was positioned prone on operating table, [place] [employer] monitors were applied and patient was deeply sedated.? ?Time-out was performed delineating correct site, side, the nature of the procedure, patient's allergy, preoperative antibiotic if needed.? All operating room staff was participating in OR time-out procedure. Patient's entire back was prepped with DuraPrep twice and draped with full body fenestrated drape.? Sterilely draped C-arm was brought over operating field and square picture of T12 L1 L2 L3 vertebrae as were demonstrated on the screen.? Attention FIRST? was concentrated on the L1-L2 epidural interspace.? location of peripheral nerve stimulator under the skin was noted. It appears to be positioned not in interference with planned procedure.The location of the projection of the right pedicle center of the? L3 vertebra was found on the skin using C-arm.? This location was injected with mixture of lidocaine 2% and Marcaine 0.25% 5 cc.? After that 11 blade was used to make a tia on the skin.? 10 cm 14 gauge? introducer epidural needle was inserted through the tia and advanced to? L1-L2 epidural interspace.? The advancement of the needle was performed on anterior posterior and lateral views.? Guitar wire and loss of resistance technique were used to locate epidural space.? When guitar wire was spread in the epidural fashion, epidural lead was inserted through the skin and it was advanced to ? top of T8 position? SLIGHTLY? right of the MIDLINE.? After that location of the projection of the LEFT pedicle center of the L3 vertebra was found on the skin using C-arm.? This location was injected with mixture of lidocaine 2% and Marcaine 0.25% 5 cc.? After that 11 blade was used to make a tia on the skin.? 10 cm 14 gauge curved introducer epidural needle was inserted through the tai and advanced to L1-L2 epidural interspace.? The advancement of the needle was performed on anterior posterior and lateral views.? Guitar wire and loss of resistance technique were used to locate epidural space.? When guitar wire was spread in the epidural fashion, epidural lead was inserted through the needle and advanced to the middle of T9 epidural interspace?.? It was inserted slightly? left to the existing electrode. Impedance was checked and was satisfactory .The needles were withdrawn, the stylette wires were removed from the epidural leads.? The anchoring devices were dislodged on the leads and advanced to the level of the skin.? The anchoring devices were sutured with two 0-0 silk sutures per each anchor to the skin of the patient. The central fixation screw of each anchor was rotated until three clicks were heard. The leads were connected to testing device.? Bacitracin ointment was applied to the entrance point of bilateral needles.? Sterile dressing was applied to the patient's back.? The testing device was also glued to the patient's back.? the patient was transferred on the stretch awaken and transferred to PACU for immediate recovery.
--- NOTE | 2021-07-27 09:46 | MHC.SHP ---
Pre-Procedural Eval Section A Date of Service: 07/27/21 Section B Chief Complaint: Postlaminectomy syndrome, Details of Present Illness: as above Relevant Family History (Specify if Yes): No Relevant Social History: None Present Medications: see Short Stay Collaborative assessment Medical History: No relevant PMH History of Previous Operations: Relevant previous surgery/procedure and date(s) Allergies: Allergies Allergy/AdvReac Type Severity Reaction Status Date / Time No Known Allergies Allergy Verified 07/19/21 10:41 [No Known Allergies*] Review of Systems Sugical H&P ROS: Negative: Cardiovascular, Respiratory, Neurological, Psychiatric, Hem-Onc, Allergic/Immunologic, Gastrointestinal, Genitourinary, Integumentary, Endocrine and Eyes/Ears/Nose/Throat and Yes, Specify: Constitution (morbid obesity) and Musculoskeletal (postlaminectomy syndrome) Exam Surgical H&P Exam: Normal: HEENT, Normal: Heart, Normal: Lungs, Normal: Extremities, Normal: Skin and Normal: Neurological and Significant Findings: Abdomen (enlarged) Plan Diagnosis/Plan: Unchanged I have reviewed the history and physical and performed a pertinent physical examination on my patient. No changes have occurred unless specified.
[2021-07-27 09:59] VITALS: BP 140/61; PULSE 72; RESP 19; TEMP 35.8; O2SAT 98
[2021-07-27] MEDS: Lactated Ringers 1,000 ML 100 ML IVCONT (10:19)
[2021-07-27 13:51] VITALS: BP 137/82; PULSE 75; RESP 16; TEMP 36.4; O2SAT 94
--- NOTE | 2021-07-27 13:51 | P.BOP_ITS ---
Brief Operative Note Date of Service: 07/27/21 Pre-op diagnosis: postlaminectomy syndrome Post-op diagnosis: same Procedure: trial of Nevro spinal cord stimulator Implants: none permanent Surgeon: Ander Ellis MD Anesthesia: MAC Was an [employer] Account Assistant used for this Procedure?: No Estimated blood loss (mL): 1 Pathology: none sent Condition: stable Disposition: PACU
[2021-07-27 14:03] VITALS: BP 134/79; PULSE 68; RESP 16; O2SAT 98
[2021-07-27 14:18] VITALS: BP 138/67; PULSE 73; RESP 16; TEMP 36.1; O2SAT 97
== END 2021-07-27 14:54 | disposition home or self-care (01) ==
PROVIDERS: PCP Internal Medicine; Visit Provider Anesthesiology
PROC: (CPT 63650; principal; 2021-07-27 11:30)
DX: M96.1 Postlaminectomy syndrome, not elsewhere classified (principal); G89.4 Chronic pain syndrome; M46.1 Sacroiliitis, not elsewhere classified; M48.061 Spinal stenosis, lumbar region without neurogenic claudication; M54.59 Other low back pain; M47.812 Spondylosis without myelopathy or radiculopathy, cervical region; R20.0 Anesthesia of skin; M17.11 Unilateral primary osteoarthritis, right knee; M79.7 Fibromyalgia; R53.82 Chronic fatigue, unspecified; J45.909 Unspecified asthma, uncomplicated; E78.5 Hyperlipidemia, unspecified; Z79.899 Other long term (current) drug therapy; Z98.890 Other specified postprocedural states
CPT/HCPCS: 63650 ×2; C1713; C1897; J0690; J2250

== ENCOUNTER → 2021-08-02 10:04 | Outpatient (BNVA) | payer OTHER, SELFPAY | PROVIDERS: PCP Internal Medicine; Visit Provider Anesthesiology | DX: Z13.89 Encounter for screening for other disorder (principal) ==

== ENCOUNTER 2021-08-21 08:07 | Outpatient (REF) | payer OTHER, SELFPAY ==
--- NOTE | ~2021-08-21 | MM_ITS ---
EXAMINATION: MM SCREENING DIGITAL BREAST TOMOSYNTHESIS, BILATERAL CLINICAL INFORMATION: Screening. Asymptomatic. Bilateral reduction mammoplasty in 2019 following prior mammography. The lifetime risk of breast cancer based on the Tyrer-Cuzick Model is 8%. COMPARISON: Mammography: 06/18/2018, 06/08/2017, 02/08/2016 TECHNIQUE: Digital breast tomosynthesis is performed in both the craniocaudal and mediolateral oblique views along with computer-aided detection (CAD). Synthesized 2D images are generated from the tomosynthesis. FINDINGS: There are scattered areas of fibroglandular density (ACR BI-RADS breast composition Category b). The breasts are symmetrically smaller and there is minor scarring consistent with the reduction mammoplasty. There are regional relatively coarse calcifications again present central and inner right breast similar to prior study. Small intramammary node posterior outer right breast. There is no significant mass or architectural abnormality or abnormal calcifications. The axilla are unremarkable. MM/MM tomosynthesis screening BI IMPRESSION: No mammographic evidence of malignancy. ASSESSMENT: BI-RADS 2: Benign RECOMMENDATION: Routine annual mammography screening. This patient's information was entered into a reminder system with a target due date for their next mammogram.
== END 2021-08-21 08:08 | disposition home or self-care (01) ==
LOC: HO.MAMMO 08:07
PROVIDERS: Visit Provider Internal Medicine
DX: Z12.31 Encounter for screening mammogram for malignant neoplasm of breast (principal)
CPT/HCPCS: 77063; 77067

== ENCOUNTER 2021-10-19 10:54 | Day surgery (SDC) | payer OTHER, SELFPAY ==
--- NOTE | 2021-10-18 09:37 | HO.ANESPROP2 ---
Documented by User: Tamia Ash NP 10/18/21 09:39 HPI - Anesthesia Eval Consult details Narrative: 61yo F for Lumbar Spinal Cord Stimulation Implant s/p trial 07/2021 with TIVA PMFSH Active Problems Active Problems: All Active Problems (Updated 07/20/21 @ 00:10 by Julia Fiore MD) Mixed dyslipidemia (Acute) Allergic rhinitis (Acute) Chronic GERD (Acute) Odynophagia (Acute) Postlaminectomy syndrome (Acute) Soft tissue injury of right knee (Acute) Tear of medial meniscus of right knee (Acute) Osteoarthritis of right knee (Acute) Cervical pain (neck) (Acute) Postlaminectomy syndrome (Acute) Chronic fatigue (Acute) Family history of thyroid disease (Acute) Spondylosis of cervical spine (Acute) Increased BMI (Acute) Postmenopause (Acute) Mixed dyslipidemia (Acute) Sacroiliitis (Acute) Lumbar back pain with radiculopathy affecting lower extremity (Acute) Past Medical History Medical History Allergic rhinitis Asthma Chronic fatigue Chronic GERD COVID-19 vaccine series completed Family history of ankylosing spondylitis Family history of thyroid disease Fibromyalgia History of postoperative nausea and vomiting History of shingles Increased BMI Lumbar back pain with radiculopathy affecting lower extremity Mixed dyslipidemia Odynophagia Postlaminectomy syndrome Postmenopause Sacroiliitis Spondylosis of cervical spine Family History Family History Father Arthritis COPD (chronic obstructive pulmonary disease) Afib High cholesterol CVD (cardiovascular disease) Mother Arthritis High cholesterol Graves disease Brother Arthritis Sister Sjogrens syndrome Mental health disorder Maternal Grandmother Breast cancer Myoclonus Rheumatoid arthritis PTSD (post-traumatic stress disorder) Sister Lyme disease Fibromyalgia Graves disease Son No problems noted. Daughter No problems noted. Maternal Aunt Mental health disorder Family history of problems with anesthesia: No Surgical History Surgical History History of breast mammoplasty History of knee surgery History of microdiscectomy History of total abdominal hysterectomy and bilateral salpingo-oophorectomy Hx of arthroscopic knee surgery S/P insertion of spinal cord stimulator History of Problems with Anesthesia: Yes (Ponv ) Social History Social History Housing: House Are you a primary manager wound care to a significant other at home: No Do you presently have visiting nurse or other home services: No Alcohol intake: never Patient Tobacco Use Status: Never used Tobacco e-Cigarette/Vaping Use: Never Used Second Hand Smoke Exposure: No Use of substances other than those prescribed or required for medical reasons: No Are you DNR?: No Advance Directives: Yes Advance Directives on File: Yes Advance Directives Date on File: 02/26/20 service: No Current occupational status: employed Cognitive needs: No Hearing needs: No Vision needs: No Meds Allergies Allergy/AdvReac Type Severity Reaction Status Date / Time No Known Allergies Allergy Verified 08/02/21 10:44 [No Known Allergies*] Home Medications Medication Instructions Recorded Confirmed Last Taken Type albuterol sulfate 90 mcg/actuation 2 puff inhalation Q6H PRN dyspnea 09/30/20 07/21/21 Unknown History aerosol inhaler sumatriptan succinate 100 mg tablet 1 tab PO DIRECTED PRN Headache 10/27/20 07/21/21 Unknown History duloxetine 30 mg capsule,delayed 30 mg PO ONCE 07/19/21 07/21/21 Unknown History release montelukast 10 mg tablet 10 mg PO DAILY 07/19/21 07/21/21 Unknown History Exam Exam Date and Time: October 18, 2021 0937 Pertinent Lab Results Pertinent Lab Results: Laboratory Tests ? 11/30/20 02/22/21 ? 07:38 07:25 WBC ?6.0 ? Hgb ?13.9 ? Hct ?45.6 ? Plt Count ?294 ? Sodium ? ?139 Potassium ? ?4.7 Chloride ? ?104 Carbon Dioxide ? ?26 BUN ? ?23 H Creatinine ? ?0.84 Assessment and Plan Assessment Anesthesia Assessment: Chart Reviewed Final Anesthetic Review Family History of Problems with Anesthesia: No History of Problems with Anesthesia: Yes (Ponv ) Documented by User: Evelina Tineo MD 10/19/21 12:11 [facility] Past Medical History Medical History Allergic rhinitis Asthma Chronic fatigue Chronic GERD COVID-19 vaccine series completed Family history of ankylosing spondylitis Family history of thyroid disease Fibromyalgia History of postoperative nausea and vomiting History of shingles Increased BMI Lumbar back pain with radiculopathy affecting lower extremity Mixed dyslipidemia Odynophagia Postlaminectomy syndrome Postmenopause Sacroiliitis Spondylosis of cervical spine Family History Family History Father Arthritis COPD (chronic obstructive pulmonary disease) Afib High cholesterol CVD (cardiovascular disease) Mother Arthritis High cholesterol Graves disease Brother Arthritis Sister Sjogrens syndrome Mental health disorder Maternal Grandmother Breast cancer Myoclonus Rheumatoid arthritis PTSD (post-traumatic stress disorder) Sister Lyme disease Fibromyalgia Graves disease Son No problems noted. Daughter No problems noted. Maternal Aunt Mental health disorder Surgical History Surgical History History of breast mammoplasty History of knee surgery History of microdiscectomy History of total abdominal hysterectomy and bilateral salpingo-oophorectomy Hx of arthroscopic knee surgery S/P insertion of spinal cord stimulator Social History Social History Housing: House Are you a primary manager wound care to a significant other at home: No Do you presently have visiting nurse or other home services: No Alcohol intake: never Patient Tobacco Use Status: Never used Tobacco e-Cigarette/Vaping Use: Never Used Second Hand Smoke Exposure: No Use of substances other than those prescribed or required for medical reasons: No Are you DNR?: No Advance Directives: Yes Advance Directives on File: Yes Advance Directives Date on File: 02/26/20 service: No Current occupational status: employed Cognitive needs: No Hearing needs: No Vision needs: No Meds Allergies Allergy/AdvReac Type Severity Reaction Status Date / Time No Known Allergies Allergy Verified 08/02/21 10:44 [No Known Allergies*] Home Medications Medication Instructions Recorded Confirmed Last Taken Type albuterol sulfate 90 mcg/actuation 2 puff inhalation Q6H PRN dyspnea 09/30/20 07/21/21 Unknown History aerosol inhaler sumatriptan succinate 100 mg tablet 1 tab PO DIRECTED PRN Headache 10/27/20 07/21/21 Unknown History duloxetine 30 mg capsule,delayed 30 mg PO ONCE 07/19/21 07/21/21 Unknown History release montelukast 10 mg tablet 10 mg PO DAILY 07/19/21 07/21/21 Unknown History Exam Airway Mallampati Class: II TM Dist: >3cm Neck ROM: Full Loose/Missing/Broken Teeth: No Heart: RRR Lungs: CTA Assessment and Plan Final Anesthetic Review ASA Class: II Final Preanesthetic Review: Meds/Allgs Chart Reviewed, Consent Obtained/Reviewed and Anes Risks/Benef Reviewed Patient Risk: Low Procedure Risk: Low Anesthetic Plan Anesthetic Plan: GA Disposition: Standard PACU
[2021-10-19] VITALS (12 sets, daily range): BP systolic 131–159; BP diastolic 48–83; PULSE 74–89; RESP 16–18; TEMP 36.1–36.7; O2SAT 94–98; BMI 38.2
--- NOTE | ~2021-10-19 | FL_ITS ---
EXAMINATION: XR FLUOROSCOPY WITH IMAGES CLINICAL INFORMATION: Stimulator implant COMPARISON: None. TECHNIQUE: Fluoroscopy performed by Dr. Ander Ellis. Fluoroscopy time: 21.2 minutes DAP: 195 mGycm2 Images: 2 FINDINGS: There are images of mid dorsal spine revealing 2 stimulator implants positioned in mid thoracic spine in posterior epidural space. Visualized bones are grossly unremarkable. Paravertebral soft tissues are normal. FL/FL guidance in OR IMPRESSION: Fluoroscopy guidance was provided to referring physician for thoracic stimulator implants.
--- NOTE | 2021-10-19 11:48 | MHC.SHP ---
Pre-Procedural Eval Section A Date of Service: 10/19/21 The patient is an INPATIENT: No Changes since office visit: Yes Patient answered all questions The History & Physical has been completed within 30 days and I have reviewed it.: No Section B Chief Complaint: postlaminectomy Details of Present Illness: as above Relevant Family History (Specify if Yes): No Relevant Social History: None Present Medications: see Short Stay Collaborative assessment Medical History: No relevant PMH History of Previous Operations: No relevant previous surgery Allergies: Allergies Allergy/AdvReac Type Severity Reaction Status Date / Time No Known Allergies Allergy Verified 08/02/21 10:44 [No Known Allergies*] Review of Systems Sugical H&P ROS: Negative: Cardiovascular, Respiratory, Neurological, Psychiatric, Hem-Onc, Allergic/Immunologic, Gastrointestinal, Genitourinary, Musculoskeletal, Integumentary, Endocrine and Eyes/Ears/Nose/Throat and Yes, Specify: Constitution (obesity) Exam Surgical H&P Exam: Normal: HEENT, Normal: Heart, Normal: Lungs, Normal: Extremities, Normal: Skin and Normal: Neurological and Significant Findings: Abdomen (enlarged) Plan Diagnosis/Plan: Unchanged I have reviewed the history and physical and performed a pertinent physical examination on my patient. No changes have occurred unless specified.
[2021-10-19] MEDS: Lactated Ringers 1,000 ML 100 ML IVCONT (11:53)
[2021-10-19] MEDS: Scopolamine 1.5 MG PATCH.TD.3 TRANSDERMA (12:11)
--- NOTE | 2021-10-19 12:38 | P.OP_ITS ---
Operative Note Operative Note Date of Service: 10/19/21 Narrative: Seema is? very pleasant 61 years old female who came today the operating room for the implant of Nevro spinal cord stimulator for the treatment of mostly axial lower back pain . After obtaining informed consent patient was brought to the operating room, she was positioned supine on the stretcher, [place] [employer] monitors were applied and patient was induced with general anesthesia with endotracheal intubation.? After that patient was transferred on the operating table prone, all pressure points were protected. ? Time-out was performed delineating correct site, side, the nature of the procedure, patient's allergy, preoperative antibiotic if needed.? All operating room staff was participating in OR time-out procedure. Patient's entire back was prepped with DuraPrep twice and draped with full body drape including Ioban film.? Sterilely draped C-arm was brought over operating field and square picture of T12, L1, L2?vertebrae? were demonstrated on the scre en.The position of the PNS SI innervation stimulation leads on the left paraspinal soft tissues were noted. THE PROJECTION OF? L1-L2 and L3?SPINOUS PROCESSES TO THE SKIN WERE INFILTRATED WITH LIDOCAINE 2% MIXED WITH ropivacaine 0.5%.? 8 CM LONG VERTICAL INCISION using a 10 blade scalpel WAS PERFORMED IN STRICT MIDLINE VERTICAL FASHION.? THOROUGH HEMOSTASIS WAS PERFORMED using electrocautery. ?Thorough tissue dissections was performed until prevertebral fascia was freed from overlying tissues.? Attention FIRST? was concentrated on the RIGHT L1-L2 epidural interspace.? The location of the projection of the right pedicle center of the?L3?vertebra was found on the prevertebral fascia using C-arm. 10 cm 14 gauge straight introducer epidural needle was inserted through the fascia and advanced toward L1-L2 epidural interspace.? The advancement of the needle was performed on anterior posterior and lateral views.? Guitar wire and loss of resistance technique were used to locate epidural space.?When loss of resistance was felt in the needle, guitar wire was obtained inserted into the needle and spread in epidural fashion. After that epidural lead was inserted through the needle and it was advanced to the position in the POSTERIOR EPIDURAL SPACE T8 vertebra slightly right to MIDLINE at the posterior T8 vertebral body body epidural space. After that location of the projection of the LEFT pedicle center of the L3 vertebra was found -using C-arm.? Again here 10 cm 14 gauge straight epidural n eedle was inserted through the prevertebral fascia and advanced to L1-L2 intervertebral interspace now on the left side.? Loss of resistance to air technique was used to locate epidural space and guitar wire was used to confirm position of the epidural space. When guitar wire was spread in the epidural fashion, epidural lead was inserted through the needle and it was attempted to advance to the epidural posterior space. however severe adhesions were met on this side and the existing epidural lead prevented switching the device to the right side. Decision was made to attempt to reach epidural interspace at the T12-L1 intervertebral space, Long 5 inch needle was obtained and inserted through the prevertebral fascia at the projection of L3 vertebra pedicle on the left. The needle was advanced to T12-L1 epidural space under anterior posterior and lateral views. The epidural space was reached uneventfully however again the epidural lead inserted through the needle was meeting a lot of resistance. Very thicj subcutaneous fat prevented needle tip manipulation to redirect epidural lead. the needle and the lead were taken away at once and the coude epidural needle was obtained. The epidural space was again reached uneventfully using ERIC to air technique and on AP and lateral views. however even then the advancement of the lead was difficult because of a steep angle the needle needed to go to reach epidural space. This caused epidural needle to bend and limited the mobility of the epidural lead in the needle. One last attempt was made to reach the T12 -L1 epidural space outside of the incision, using 3 and 1/2 staright epidural needle positioned in the projection of the L2 left pedicle to the skin. the needle advancement went uneventful, epidural space was reached on AP and la teral projection using ERIC syringe and guitar wire. After that the epidural lead was used to inserte through the needle and it was crossed over to the right epidural interspace it was advanced to T9 posterior epidural space. After that a 10 blade scalpel was used to extend the incision in the above and below the needle insertion point to make a wound 3 cm long. After that the hemostasis was performed and the epidural needle was removed while care was taken to keep the needle at the place. anchoring device was dislodged on the lead and advanced into the wound. Tycron sutures were used to fix the anchor to the prevertebral fascia and epidural lead was tunneled to the lower midline incision through the epidural needle.The fixating screw was fixed until 3 clicks were heard on the anchoring device. After satisfactory position of the leads were established the remaining needle was withdrawn, the stylette wires were removed from the epidural leads.? The anchoring devices kat dislodged on the lead and advanced to the level of the prevertebral fascia in the second wound.? The anchoring device was advanced along the epidural lead and dislodged on epidural lead at the level of prevertebral fascia.? It was sutured to prevertebral fascia with 2 separate Tycron 1-0 sutures per each anchoring device.? The fixating screws were fixed until 3 clicks were heard on each anchoring device. After that the wound was irrigated with copious amount of Vancomycin containing normal saline and packed with Vancomycin soaked 4 x 4. ?After that attention was concentrated on the RIGHT upper buttock??of the patient?where She wanted the? battery to be implanted.?Using 10 scalpel 6 cm long horizontal incision was performed 3 cm below the projection to the skin of the RIGHT iliac crest. ? The wound was deepened and widened and thorough hemostasis was performed. The pocket was created to accommodate the battery. Irrigation with vancomycin containing saline was performed.After that the? tunneling device was used to connect midline incision and the left upper buttock incision. Thorough hemostasis was performed. ?? After that tunneling device was used to connect both wounds and dislodge epidural leads from midline wound to the lateral wound in the? upper RIGHT buttock..? The epidural lead's contacting ends were connected to the battery. However one connecting screw appeared to be faulty and neither I nor the division order technician in the room were able to connect the screwdriver to battery. Another battery was obtained and brought on the sterile field, the connection of the second battery went uneventful. The impedance was satisfactory. After that all 3 wounds were thoroughly irrigated with normal saline containing vancomycin.?? Tycron 1 0 Sutures were applied to the most superior lateral and most superior medial corners of the? wound.? Those sutures were tied after the battery was inserted into the pocket with the epidural leads collected behind the body of the battery.. After that 0 Polisorb sutures were used to close all 3 wounds.?0-2 Polisorb surures were used to approximate the level of the skin on the both wounds.? [place] were applied to skin level.? Bacitracin ointment was smeared on the staple line.? Sterile dressing was applied.? Abdominal binder was applied.? The patient was transferred to the stretcher, awaken, and in stable condition transferred to PACU.?
--- NOTE | 2021-10-19 12:58 | PM.OP ---
Brief Operative Note Date of Service: 10/19/21 Pre-op diagnosis: POSTLAMINECTOMY SYNDROME Post-op diagnosis: same Procedure: IMPLANTATION OF THE SCS NEVRO Implants: NEVRO SCS BATTERY AND 2 EPIDURAL LEADS Surgeon: Ander Ellis MD Anesthesia: GETA Was an Straddle Truck Driver used for this Procedure?: No Estimated blood loss (mL): 25 Pathology: none sent Condition: stable Disposition: PACU
[2021-10-19] MEDS: ondansetron HCL 4 MG/2 ML VIAL IVPUSH (18:16)
== END 2021-10-19 19:45 | disposition home or self-care (01) ==
PROVIDERS: PCP Internal Medicine; Visit Provider Anesthesiology
PROC: (CPT 63685; principal; 2021-10-19 12:10)
DX: M46.1 Sacroiliitis, not elsewhere classified (principal); M96.1 Postlaminectomy syndrome, not elsewhere classified; M54.59 Other low back pain; M48.061 Spinal stenosis, lumbar region without neurogenic claudication; M47.812 Spondylosis without myelopathy or radiculopathy, cervical region; M79.7 Fibromyalgia; J45.909 Unspecified asthma, uncomplicated; R53.82 Chronic fatigue, unspecified; Z86.19 Personal history of other infectious and parasitic diseases; Z98.890 Other specified postprocedural states
CPT/HCPCS: 63685; 63650 ×2; C1713; C1778; C1787; C1816; C1897; J0690; J1170; J2250; J2405; J2550; J2795; J3010; J3370; Q9967

== ENCOUNTER 2022-01-11 09:54 | Day surgery (SDC) | payer OTHER, SELFPAY ==
--- NOTE | 2022-01-10 09:22 | HO.ANESPROP2 ---
Documented by User: Tamia Ash NP 01/10/22 09:23 HPI - Anesthesia Eval Consult details Narrative: 61yo F for Lumbar Revision Spinal Cord Stimulator s/p spinal stim 10/2021 with GA-ETT 7 PMFSH Active Problems Active Problems: All Active Problems (Updated 07/20/21 @ 00:10 by Julia Fiore MD) Mixed dyslipidemia (Acute) Allergic rhinitis (Acute) Chronic GERD (Acute) Odynophagia (Acute) Postlaminectomy syndrome (Acute) Soft tissue injury of right knee (Acute) Tear of medial meniscus of right knee (Acute) Osteoarthritis of right knee (Acute) Cervical pain (neck) (Acute) Postlaminectomy syndrome (Acute) Chronic fatigue (Acute) Family history of thyroid disease (Acute) Spondylosis of cervical spine (Acute) Increased BMI (Acute) Postmenopause (Acute) Mixed dyslipidemia (Acute) Sacroiliitis (Acute) Lumbar back pain with radiculopathy affecting lower extremity (Acute) Past Medical History Medical History Allergic rhinitis Asthma Chronic fatigue Chronic GERD COVID-19 vaccine series completed Family history of ankylosing spondylitis Family history of thyroid disease Fibromyalgia History of postoperative nausea and vomiting History of shingles Increased BMI Lumbar back pain with radiculopathy affecting lower extremity Mixed dyslipidemia Odynophagia Postlaminectomy syndrome Postmenopause Sacroiliitis Spondylosis of cervical spine Family History Family History Father Arthritis COPD (chronic obstructive pulmonary disease) Afib High cholesterol CVD (cardiovascular disease) Mother Arthritis High cholesterol Graves disease Brother Arthritis Sister Sjogrens syndrome Mental health disorder Maternal Grandmother Breast cancer Myoclonus Rheumatoid arthritis PTSD (post-traumatic stress disorder) Sister Lyme disease Fibromyalgia Graves disease Son No problems noted. Daughter No problems noted. Maternal Aunt Mental health disorder Family history of problems with anesthesia: No Surgical History Surgical History History of breast mammoplasty History of knee surgery History of microdiscectomy History of total abdominal hysterectomy and bilateral salpingo-oophorectomy Hx of arthroscopic knee surgery S/P insertion of spinal cord stimulator History of Problems with Anesthesia: Yes (Ponv ) Social History Social History Housing: House Are you a primary patient centered care specialist to a significant other at home: No Do you presently have visiting nurse or other home services: No Alcohol intake: never Patient Tobacco Use Status: Former Tobacco user Quit Date: decades ago e-Cigarette/Vaping Use: Never Used Second Hand Smoke Exposure: No Use of substances other than those prescribed or required for medical reasons: No Are you DNR?: No Advance Directives: No Advance Directives Information Provided: Yes Advance Directives Date on File: 02/26/20 service: No Current occupational status: employed Cognitive needs: No Hearing needs: No Vision needs: No Meds Allergies Allergy/AdvReac Type Severity Reaction Status Date / Time No Known Allergies Allergy Verified 01/05/22 13:20 [No Known Allergies*] Home Medications Medication Instructions Recorded Confirmed Last Taken Type albuterol sulfate 90 mcg/actuation 2 puff inhalation Q6H PRN dyspnea 09/30/20 01/05/22 Unknown History aerosol inhaler duloxetine 30 mg capsule,delayed 30 mg PO DAILY 07/19/21 01/05/22 01/11/22 History release Exam Exam Date and Time: January 10, 2022921 Assessment and Plan Assessment Anesthesia Assessment: Chart Reviewed Final Anesthetic Review Family History of Problems with Anesthesia: No History of Problems with Anesthesia: Yes (Ponv ) Documented by User: Tyrell Lowry MD 01/11/22 10:49 [facility] Past Medical History Medical History Allergic rhinitis Asthma Chronic fatigue Chronic GERD COVID-19 vaccine series completed Family history of ankylosing spondylitis Family history of thyroid disease Fibromyalgia History of postoperative nausea and vomiting History of shingles Increased BMI Lumbar back pain with radiculopathy affecting lower extremity Mixed dyslipidemia Odynophagia Postlaminectomy syndrome Postmenopause Sacroiliitis Spondylosis of cervical spine Family History Family History Father Arthritis COPD (chronic obstructive pulmonary disease) Afib High cholesterol CVD (cardiovascular disease) Mother Arthritis High cholesterol Graves disease Brother Arthritis Sister Sjogrens syndrome Mental health disorder Maternal Grandmother Breast cancer Myoclonus Rheumatoid arthritis PTSD (post-traumatic stress disorder) Sister Lyme disease Fibromyalgia Graves disease Son No problems noted. Daughter No problems noted. Maternal Aunt Mental health disorder Surgical History Surgical History History of breast mammoplasty History of knee surgery History of microdiscectomy History of total abdominal hysterectomy and bilateral salpingo-oophorectomy Hx of arthroscopic knee surgery S/P insertion of spinal cord stimulator Social History Social History Housing: House Are you a primary patient centered care specialist to a significant other at home: No Do you presently have visiting nurse or other home services: No Alcohol intake: never Patient Tobacco Use Status: Former Tobacco user Quit Date: decades ago e-Cigarette/Vaping Use: Never Used Second Hand Smoke Exposure: No Use of substances other than those prescribed or required for medical reasons: No Are you DNR?: No Advance Directives: No Advance Directives Information Provided: Yes Advance Directives Date on File: 02/26/20 service: No Current occupational status: employed Cognitive needs: No Hearing needs: No Vision needs: No Meds Allergies Allergy/AdvReac Type Severity Reaction Status Date / Time No Known Allergies Allergy Verified 01/05/22 13:20 [No Known Allergies*] Home Medications Medication Instructions Recorded Confirmed Last Taken Type albuterol sulfate 90 mcg/actuation 2 puff inhalation Q6H PRN dyspnea 09/30/20 01/05/22 Unknown History aerosol inhaler duloxetine 30 mg capsule,delayed 30 mg PO DAILY 07/19/21 01/05/22 01/11/22 History release Exam Airway Mallampati Class: I TM Dist: >3cm Neck ROM: Full Loose/Missing/Broken Teeth: No (Rrr) Heart: rrr Lungs: clear Assessment and Plan Final Anesthetic Review NPO: Yes ASA Class: II Final Preanesthetic Review: No Changes in Pt Med Stat, Meds/Allgs Chart Reviewed, Consent Obtained/Reviewed and Anes Risks/Benef Reviewed Anesthetic Plan Anesthetic Plan: GA Disposition: Standard PACU
[2022-01-11] VITALS (7 sets, daily range): BP systolic 127–153; BP diastolic 67–83; PULSE 80–102; RESP 11–16; TEMP 36.1–36.8; O2SAT 94–97; BMI 38.2
[2022-01-11] MEDS: Lactated Ringers 1,000 ML 100 ML IVCONT (10:38)
[2022-01-11] MEDS: Scopolamine 1.5 MG PATCH.TD.3 TRANSDERMA (10:59)
--- NOTE | 2022-01-11 11:48 | MHC.SHP ---
Pre-Procedural Eval Section A Date of Service: 01/11/22 The patient is an INPATIENT: No Changes since office visit: Yes Patient answered all questions The History & Physical has been completed within 30 days and I have reviewed it.: No Section B Chief Complaint: Postlaminectomy syndrome, not elsewhere classified Details of Present Illness: postlaminectomy syndrome, presence of SCS Nevro malfunctioning machine Relevant Family History (Specify if Yes): No Relevant Social History: None Present Medications: see Short Stay Collaborative assessment Medical History: No relevant PMH History of Previous Operations: Relevant previous surgery/procedure and date(s) Allergies: Allergies Allergy/AdvReac Type Severity Reaction Status Date / Time No Known Allergies Allergy Verified 01/05/22 13:20 [No Known Allergies*] Review of Systems Sugical H&P ROS: Negative: Cardiovascular, Respiratory, Neurological, Psychiatric, Hem-Onc, Allergic/Immunologic, Gastrointestinal, Genitourinary, Musculoskeletal, Integumentary, Endocrine and Eyes/Ears/Nose/Throat and Yes, Specify: Constitution (obesity) Exam Surgical H&P Exam: Normal: HEENT, Normal: Heart, Normal: Lungs, Normal: Extremities, Normal: Skin and Normal: Neurological and Significant Findings: Abdomen (enlarged) Plan Diagnosis/Plan: Unchanged I have reviewed the history and physical and performed a pertinent physical examination on my patient. No changes have occurred unless specified.
--- NOTE | 2022-01-11 11:52 | MHC.SHP ---
Pre-Procedural Eval Section A Date of Service: 01/11/22 The patient is an INPATIENT: No Changes since office visit: Yes Patient answered all questions The History & Physical has been completed within 30 days and I have reviewed it.: No Section B Chief Complaint: Postlaminectomy syndrome, not elsewhere classified Details of Present Illness: mulfunctioning SCS Nevro Relevant Family History (Specify if Yes): No Relevant Social History: Other (specify) Present Medications: see Short Stay Collaborative assessment Medical History: No relevant PMH History of Previous Operations: Relevant previous surgery/procedure and date(s) Allergies: Allergies Allergy/AdvReac Type Severity Reaction Status Date / Time No Known Allergies Allergy Verified 01/05/22 13:20 [No Known Allergies*] Review of Systems Sugical H&P ROS: Negative: Cardiovascular, Respiratory, Neurological, Psychiatric, Hem-Onc, Allergic/Immunologic, Gastrointestinal, Genitourinary, Musculoskeletal, Integumentary, Endocrine and Eyes/Ears/Nose/Throat and Yes, Specify: Constitution (obesity) Exam Surgical H&P Exam: Normal: HEENT, Normal: Heart, Normal: Lungs, Normal: Extremities, Normal: Abdomen, Normal: Skin and Normal: Neurological Exam Comment: mulfunctioning SCS in the right buttock area Plan Diagnosis/Plan: Change This patient has a battery on the right, I will do revision of the battery site, disconnecting the battery from the leads. If lead is malfunction is detected I need to open midline incision and replace the lead L1- L2.
[2022-01-11 11:57] LABS: MRSA Nasal PCR NEGATIVE (Negative); SA Nasal PCR NEGATIVE (Negative)
--- NOTE | 2022-01-11 12:09 | PC.NURSE ---
per Jay Jay, excecutive global director air and climate change RN , side & site need to be added to h&p, order and consent. done as directed by Dr. Parsons
--- NOTE | 2022-01-11 13:35 | PM.OP ---
Brief Operative Note Date of Service: 01/11/22 Pre-op diagnosis: SCS dysfunction, postlaminectomy syndrome Post-op diagnosis: same Procedure: revision of the battery of the SCS Implants: the same omnia battery was explanted adjusted and implanted back. Surgeon: Ander Ellis MD Anesthesia: GETA Was an Command Post Craftsman used for this Procedure?: No Estimated blood loss (mL): 11 Pathology: none sent Condition: stable Disposition: PACU
--- NOTE | 2022-01-11 13:38 | P.OP_ITS ---
Operative Note Operative Note Date of Service: 01/11/22 Narrative: Seema is? very pleasant 61 years old female who came today the operating room for the Revision of Nevro spinal cord stimulator for the treatment of mostly axial lower back pain . After obtaining informed consent patient was brought to the operating room, she was positioned supine on the stretcher, [place] [employer] monitors were applied and patient was induced with general anesthesia with endotracheal intubation.? After that patient was transferred on the operating table prone, all pressure points were protected. ? Time-out was performed delineating correct site, side, the nature of the procedure, patient's allergy, preoperative antibiotic if needed.? All operating room staff was participating in OR time-out procedure. Patient's entire back was prepped with ChloraPrep twice and draped with full body drape including Ioban film.? Sterilely draped C-arm was on standby. removed while care was taken to keep the needle at the place. anchoring device was dislodged on the lead and advanced into the wound. Tycron sutures were used to fix the anchor to the prevertebral fascia and epidural lead was tunneled to the lower midline incision through the epidural needle.The fixating screw was fixed until 3 clicks were heard on the anchoring device. ?Attention was concentrated on the RIGHT upper buttock??of the patient??Using 15 scalpel 6 cm long horizontal incision was performed alongside the previous scarThe wound was deepened and widened and thorough hemostasis was performed using bipolar electrocautery. Metzenbaum scissors were used to open up the capsule of the battery. The battery was located in the wound, the anchors sources were severed, and the battery was delivered to the level of the skin. The 1-8 electrode screw was loosen completely, the epidural lead was withdrawn with the battery and connected to the testing device. The into dances were found to be satisfactory. After that the electrode was clean and inserted into the battery again. The screw was tightened until the 3 clicks were heard. Irrigation with vancomycin containing saline was performed. After that The wound was - thoroughly irrigated with normal saline containing vancomycin.?? Tycron 1 0 Sutures were applied to the most superior lateral and most superior medial corners of the? wound.? Those sutures were tied after the battery was inserted into the pocket with the epidural leads collected behind the body of the battery. After that 0 Polisorb sutures were used to close the wound.?0-2 Polisorb surures were used to approximate the level of the skin on the both wounds.? [place] were applied to skin level.? Bacitracin ointment was smeared on the staple line.? Sterile dressing was applied.? Abdominal binder was applied.? The patient was transferred to the stretcher, awaken, and in stable condition transferred to PACU.?
== END 2022-01-11 14:55 | disposition home or self-care (01) ==
PROVIDERS: Nurse Practitioner Family; PCP Internal Medicine; Visit Provider Anesthesiology
PROC: (CPT 63688; principal; 2022-01-11 11:30)
DX: Z45.49 Encounter for adjustment and management of other implanted nervous system device (principal); M96.1 Postlaminectomy syndrome, not elsewhere classified; M46.1 Sacroiliitis, not elsewhere classified; M47.812 Spondylosis without myelopathy or radiculopathy, cervical region
CPT/HCPCS: 63688; 87640; 87641; J0690; J2250; J2795; J3010; J3370

== ENCOUNTER 2022-03-19 07:44 | Outpatient (REF) | payer OTHER, SELFPAY ==
--- NOTE | ~2022-03-19 | XR_ITS ---
EXAMINATION: XR KNEE, RIGHT CLINICAL INFORMATION: Knee pain. COMPARISON: None TECHNIQUE: Three views of the right knee. Frontal view of the left knee. FINDINGS: Mild tricompartmental degenerative changes involve the right knee joint, most notably involving the medial compartment. No fracture or dislocation is seen. Bony mineralization appears preserved. No lytic or sclerotic bony lesion is seen. There may be trace suprapatellar fluid on the right. Frontal view of the left knee demonstrates mild joint space narrowing. XR/XR knee RT 2V IMPRESSION: Mild degenerative change.
--- NOTE | ~2022-03-19 | XR_ITS ---
EXAMINATION: XR KNEE, RIGHT CLINICAL INFORMATION: Knee pain. COMPARISON: None TECHNIQUE: Three views of the right knee. Frontal view of the left knee. FINDINGS: Mild tricompartmental degenerative changes involve the right knee joint, most notably involving the medial compartment. No fracture or dislocation is seen. Bony mineralization appears preserved. No lytic or sclerotic bony lesion is seen. There may be trace suprapatellar fluid on the right. Frontal view of the left knee demonstrates mild joint space narrowing. XR/XR knee standing BI IMPRESSION: Mild degenerative change.
== END 2022-03-19 07:45 | disposition home or self-care (01) ==
LOC: HO.HOSX 07:44
PROVIDERS: Visit Provider Physician Assistant
DX: M17.11 Unilateral primary osteoarthritis, right knee (principal); M25.562 Pain in left knee
CPT/HCPCS: 20610; 73560; 73565; J1040

== ENCOUNTER 2022-03-21 06:59 | Outpatient (REF) | payer OTHER, SELFPAY ==
[2022-03-21 11:23] LABS: MANUAL DIFF FLAG NO
[2022-03-21 11:36] LABS: Basophils Percent Auto 0.3 % (0-2); Eosinophils Percent Auto 0.3 % (0-4); Hematocrit 46.4 % (37.0-47.0); Hemoglobin 14.3 g/dl (12.0-16.0); Imm Gran Abs Auto 0.04 X10*3/uL (0.00-0.03); Imm Gran Pct Auto 0.3 % (0.0-0.4); Lymphocytes Absolute Auto 3.1 X10*3/uL (1.2-4.9); Lymphocytes Percent Auto 20.6 % (20-40); Mean Corpuscular HGB Conc 30.8 g/dl (31.0-35.0); Mean Corpuscular Hemoglobin 25.4 pg (27.0-33.0); Mean Corpuscular Volume 82.4 fL (80.0-98.0); Monocytes Absolute Auto 0.8 X10*3/uL (0.1-1.2); Monocytes Percent Auto 5.1 % (2-11); Neutrophils Absolute Auto 11.1 x10*3/uL (2.0-8.3); Neutrophils Percent Auto 73.4 % (45-73); Platelet Count 297 X10*3/uL (160-400); Red Blood Count 5.63 X10*6/uL (4.20-5.50); Red Cell Distribution Width 13.5 % (11.0-16.0); White Blood Count 15.1 X10*3/uL (4.8-10.8)
[2022-03-21 11:43] LABS: Estimated Average Glucose 131 mg/dL; Hemoglobin A1c % 6.2 %
[2022-03-21 12:41] LABS: Alanine Aminotransferase 34 U/L (0-31); Aspartate Amino Transferase 20 U/L (5-31); Cholesterol 229 mg/dL; Glucose Fasting 102 mg/dL (60-99); HDL Cholesterol 53 mg/dL; Iron 75 mcg/dL (30-160); LDL Cholesterol Calculated 150 mg/dl; Percent Iron Saturation 26 % (15-50); Total Iron Binding Capacity 294 mcg/dL (228-428); Triglycerides 132 mg/dL; Unsaturated Iron Binding 219 ug/dL; Vitamin D 25-OH Total 43.6 ng/mL (>30)
== END 2022-03-21 07:00 | disposition home or self-care (01) ==
LOC: HO.HMGCLDS 06:59
PROVIDERS: PCP Internal Medicine; Visit Provider Internal Medicine
DX: Z00.01 Encounter for general adult medical examination with abnormal findings (principal); K21.9 Gastro-esophageal reflux disease without esophagitis; E78.2 Mixed hyperlipidemia; R73.01 Impaired fasting glucose; Z86.2 Personal history of diseases of the blood and blood-forming organs and certain disorders involving the immune mechanism
CPT/HCPCS: 36415; 80061; 82306; 82947; 83036; 83540; 84450; 84460; 85025

== ENCOUNTER → 2022-04-24 08:22 | Outpatient (BNVA) | payer OTHER, SELFPAY | PROVIDERS: PCP Internal Medicine; Visit Provider Physician Assistant | DX: M17.11 Unilateral primary osteoarthritis, right knee (principal) | CPT/HCPCS: 20610; J7323 ==

== ENCOUNTER → 2022-05-01 08:10 | Outpatient (BNVA) | payer OTHER, SELFPAY | PROVIDERS: PCP Internal Medicine; Visit Provider Physician Assistant | DX: M17.11 Unilateral primary osteoarthritis, right knee (principal) | CPT/HCPCS: 20610; J7323 ==

== ENCOUNTER → 2022-05-08 08:08 | Outpatient (BNVA) | payer OTHER, SELFPAY | PROVIDERS: PCP Internal Medicine; Visit Provider Physician Assistant | DX: M17.11 Unilateral primary osteoarthritis, right knee (principal) | CPT/HCPCS: 20610; J7323 ==

== ENCOUNTER → 2022-08-24 08:55 | Outpatient (BNVA) | payer OTHER, SELFPAY | PROVIDERS: PCP Internal Medicine; Visit Provider Student in an Organized Health Care Education/Training Program ==

== ENCOUNTER 2022-09-07 08:42 | Outpatient (RCR) | payer OTHER, SELFPAY ==
--- NOTE | 2022-09-07 10:48 | MHC.OT.EP ---
[address] [phone] Occupational Therapy Plan of Care Patient Name: Seema Mata Date of Evaluation: 09/07/22 Diagnosis: OA Bilateral hands Pain Location: Bilateral digits Right D2 and D4 Left D3 DIP jts. Burning 1-2 x a day Pain Score: 6 Pain Scale Used: Numeric (0 - 10) Aggravating Factors: Bending fingers. Alleviating Factors: Slight benefit from Tylenol and Voltaren Assessment: Pt is a 62 yo female with a long ho OA jt pain leading to knee surgery, microdiscectomy ,and spinal stimulator now with worsening hand pain with OA jt changes at DIPjts Pt presents with compliant of pain, low hand strength and occasional hand paresthesia. 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 She enjoys knitting a few hours a day, now limited due burning pain at her right index DIP jt Pt will benefit from OT to address hand pain, jt protection and strengthening for improved hand function Frequency and Duration: The patient will be seen 1x wk x 4 wks Short Term Goals: Demo awareness of jt protection techniques for hand OA Demo awareness of AD for jt protection and office ergonomicss Demo indep with HEP Demo awareness of thermal modalities for jt pain Right side framer to 30 lb Quick DASH score to <15 pts Software Licensing Executive Goals: Same as above Treatment Plan: Therapeutic Exercise Therapeutic Activity Home Exercise Program Splinting Patient Education ADL Training Paraffin MHP Cold Packs Electronically Signed By: Mariel Tavares OT CHT CLT Please Sign and return to therapist. Thank you once again for your referral.
--- NOTE | 2022-10-29 09:52 | MHC.OT.DC ---
[address] [phone] F: [phone] Occupational Therapy Discharge Note Patient Name: Seema Mata Provider: Fitz Ballard Diagnosis: OA Bilateral hands Date of Surgery: Date of Evaluation: 09/07/22 Date of Discharge: 10/29/22 Treatments to Date: 1 Cancellations to Date: 0 No Shows to Date: 0 Discharge Status: Discharge Summary: OT eval completed . See eval for details Pt ed and practice with Paraffin wax and AROM Began pt ed in jt protection tech and use of niru sleeve compression and tape for DIPj support with knitting Pt has not scheduled follow up OT appointments Electronically Signed By: Mariel Tavares OT CHT CLT Reviewed/agree with student documentation: Therapist: Please Sign and return to therapist, thank you for your referral.
== END 2022-10-29 09:53 | disposition home or self-care (01) ==
LOC: HO.OT 08:42
PROVIDERS: PCP Internal Medicine; Visit Provider Student in an Organized Health Care Education/Training Program
DX: M19.041 Primary osteoarthritis, right hand (principal); M19.042 Primary osteoarthritis, left hand
CPT/HCPCS: 97110; 97166

== ENCOUNTER 2022-09-14 08:47 | Outpatient (REF) | payer OTHER, SELFPAY ==
--- NOTE | ~2022-09-14 | MM_ITS ---
EXAMINATION: BONE DENSITOMETRY CLINICAL INDICATION: Asymptomatic menopausal state. COMPARISON: Baseline BD dated 09/13/2016. This is the patient's baseline examination for the left forearm radius 33%. TECHNIQUE: Using a [employer] DXA System (software version: 13.1) manufactured by [employer], dual-energy x-ray absorptiometry was performed of the lumbar spine, left hip and left forearm radius 33%. The images are of good technical quality. Summary results are attached. FINDINGS: AP SPINE L1-L4 (excluding L2 and L3): The data of L1-L4 has been changed to exclude the L2 and L3 vertebral bodies, because artifact from spinal stimulator leads may cause overestimation of lumbar spine density. Current: BMD 1.282 g/cm2, Z-score 1.2, T-score 1.0, normal, 6.3% increase from baseline (<5% change is not significant). Baseline: BMD 1.206 g/cm2. LEFT FEMUR, NECK: Current: BMD 0.880 g/cm2, Z-score -0.6, T-score -1.1, osteopenia. Baseline: BMD 0.923 g/cm2. LEFT FEMUR, TOTAL: Current: BMD 1.082 g/cm2, Z-score 0.8, T-score 0.6, normal, 5.0% increase from baseline (<5% change is not significant). Baseline: BMD 1.030 g/cm2. LEFT FOREARM RADIUS 33%: BMD 0.863 g/cm2, Z-score 0.9, T-score -0.1, normal. Prior: Not previously measured. IDENTIFIED RISK FACTORS: Height loss, low calcium intake. Early menopause, secondary osteoporosis, hysterectomy, bilateral oophorectomy. HISTORY OF FRACTURE: None listed. MEDICATIONS: Vitamin D. MM/XR DEXA axial skeleton IMPRESSION: 1. DIAGNOSIS: Osteopenia based on the lowest T-score value of -1.1 in the femoral neck applying World Health Organization criteria. 2. 10-YEAR FRACTURE RISK PREDICTION, FRAX: Major osteoporotic fracture (clinical spine, forearm, hip or shoulder) 6.9%. Hip fracture 0.4%. 3. Treatment Recommendations: NOF guidelines recommend consideration for treatment in postmenopausal women and men age 50 and older presenting with the following: -A hip or vertebral (clinical or morphometric) fracture. -T-score less than or equal to -2.5 at the femoral neck or spine after appropriate evaluation to exclude secondary causes. -Low bone mass at the hip or spine and a 10-year fracture probability by FRAX of greater than or equal to 3% for hip fracture or greater than or equal to 20% for major osteoporotic fracture based on the [place] adapted WHO algorithm. 4. Other Recommendations: All treatment decisions require clinical judgment and consideration of individual patient factors, including patient preferences, comorbidities, previous drug use, risk factors not captured in the FRAX model (e.g. frailty, falls, vitamin D deficiency, increased bone turnover, interval significant decline in bone density) and possible under or overestimation of fracture risk by FRAX. Additional medical evaluation for secondary cause of low bone mineral density may be appropriate. FUTURE SCAN RECOMMENDATION: People with diagnosed cases of osteoporosis or at high risk for fracture should have regular bone mineral density tests. For patients eligible for Medicare, routine testing is allowed once every 2 years. The testing frequency can be increased to one year for patients who have rapidly progressing disease, those who are receiving or discontinuing medical therapy to restore bone mass, or have additional risk factors.
--- NOTE | ~2022-09-14 | MM_ITS ---
EXAMINATION: MM SCREENING DIGITAL BREAST TOMOSYNTHESIS, BILATERAL CLINICAL INFORMATION: Screening. Asymptomatic. Reduction mammoplasty, 2019. The lifetime risk of breast cancer based on the Tyrer-Cuzick Model is 8%. COMPARISON: Prior mammography exams including most recent 08/21/2021. TECHNIQUE: Digital breast tomosynthesis is performed in both the craniocaudal and mediolateral oblique views along with computer-aided detection (CAD). Synthesized 2D images are generated from the tomosynthesis. FINDINGS: There are scattered areas of fibroglandular density (ACR BI-RADS breast composition Category b). Breast parenchymal pattern is similar to prior exam. There is minor scarring consistent with the reduction mammoplasty. There is a small intramammary node again seen outer breast. Neither breast shows developing density or interval architectural abnormality. No abnormal breast parenchymal calcifications. Again, there are benign regional ductal secretory calcifications medial right breast. There is a right axillary node approximately 15 cm from nipple measuring 2.8 cm in length with granulomatous calcification or tattoo artifact. Patient will be recalled for additional characterization with right axillary ultrasound. MM/MM tomosynthesis screening BI IMPRESSION: -Minor post surgical changes similar to prior exam. -Right axillary node with granulomatous calcification versus tattoo artifact. ASSESSMENT: BI-RADS 0: Incomplete - Need Additional Imaging Evaluation RECOMMENDATION: 1. Targeted right axillary ultrasound. 2. Radiology department staff will contact the patient for additional imaging. This patient's information was entered into a reminder system with a target due date for their next mammogram.
== END 2022-09-14 08:48 | disposition home or self-care (01) ==
LOC: HO.MAMMO 08:47
PROVIDERS: PCP Internal Medicine; Visit Provider Internal Medicine
DX: Z12.31 Encounter for screening mammogram for malignant neoplasm of breast (principal); Z13.820 Encounter for screening for osteoporosis; Z78.0 Asymptomatic menopausal state
CPT/HCPCS: 77063; 77067; 77080

== ENCOUNTER 2022-09-21 13:11 | Outpatient (REF) | payer OTHER, SELFPAY ==
--- NOTE | ~2022-09-21 | US_ITS ---
EXAMINATION: US DIAGNOSTIC ULTRASOUND BREAST (AXILLA), RIGHT CLINICAL INFORMATION: Recall from screening for right axillary node with granulomatous calcification versus tattoo artifact. COMPARISON: Prior mammography exams including most recent 09/14/2022. TECHNIQUE: Ultrasound of the upper outer right breast and axillary is performed using grayscale imaging and color Doppler. FINDINGS: There is no cystic or solid mass or architectural abnormality. No lymphadenopathy. Several incidental nodes are demonstrated, largest approximately 2.5 cm in length with normal soy architecture with abundant fatty hilus and normal uniform cortex. This corresponds to the node on mammography. Patient has multiple tattoos including the right upper extremity. The punctate densities on mammography are believed to represent tattoo pigment artifact as suspected. Results are discussed with the patient at time of visit. US/US breast RT limited IMPRESSION: -No lymphadenopathy. -Tattoo pigment suspected right axillary node on recent mammography. ASSESSMENT: BI-RADS 2: Benign RECOMMENDATION: Routine annual mammography screening. This patient's information was entered into a reminder system with a target due date for their next mammogram.
== END 2022-09-21 13:12 | disposition home or self-care (01) ==
LOC: HO.MAMMO 13:11
PROVIDERS: PCP Internal Medicine; Visit Provider Internal Medicine
DX: N63.31 Unspecified lump in axillary tail of the right breast (principal)
CPT/HCPCS: 76642

== ENCOUNTER 2022-12-13 07:21 | Outpatient (REF) | payer OTHER, SELFPAY ==
[2022-12-13 11:32] LABS: MANUAL DIFF FLAG NO
[2022-12-13 11:42] LABS: Basophils Absolute Auto 0.1 X10*3/uL (0.0-0.2); Basophils Percent Auto 0.7 % (0-2); Eosinophils Absolute Auto 0.2 X10*3/uL (0.0-0.4); Eosinophils Percent Auto 2.9 % (0-4); Hematocrit 44.2 % (37.0-47.0); Hemoglobin 13.9 g/dl (12.0-16.0); Imm Gran Abs Auto 0.02 X10*3/uL (0.00-0.03); Imm Gran Pct Auto 0.2 % (0.0-0.4); Lymphocytes Absolute Auto 2.8 X10*3/uL (1.2-4.9); Lymphocytes Percent Auto 34.1 % (20-40); Mean Corpuscular HGB Conc 31.4 g/dl (31.0-35.0); Mean Corpuscular Hemoglobin 25.9 pg (27.0-33.0); Mean Corpuscular Volume 82.3 fL (80.0-98.0); Monocytes Absolute Auto 0.7 X10*3/uL (0.1-1.2); Monocytes Percent Auto 8.1 % (2-11); Neutrophils Absolute Auto 4.5 x10*3/uL (2.0-8.3); Platelet Count 265 X10*3/uL (160-400); Red Blood Count 5.37 X10*6/uL (4.20-5.50); Red Cell Distribution Width 13.9 % (11.0-16.0); White Blood Count 8.3 X10*3/uL (4.8-10.8)
[2022-12-13 12:01] LABS: Estimated Average Glucose 120 mg/dL; Hemoglobin A1c % 5.8 % (<6.0)
[2022-12-13 12:19] LABS: INTERNATIONAL NORM RATIO 0.8 (0.9-1.1); Prothrombin Time 10.2 SEC (11.1-13.3)
[2022-12-13 12:24] LABS: Partial Thromboplastin Time 34.9 SEC (26.0-36.4)
[2022-12-13 12:25] LABS: Alanine Aminotransferase 25 U/L (0-31); Anion Gap 13 (12-20); Aspartate Amino Transferase 20 U/L (5-31); Blood Urea Nitrogen 21 mg/dL (9-16); Calcium 9.6 mg/dL (8.4-10.2); Carbon Dioxide 26 mmol/L (22-29); Chloride 107 mmol/L (96-108); Cholesterol 254 mg/dL (<200); Estimated Glomerular Filt Rate > 60; Glucose Fasting 107 mg/dL (60-99); HDL Cholesterol 53 mg/dL (>40); LDL Cholesterol Calculated 172 mg/dL (<100); Potassium 4.1 mmol/L (3.3-5.1); Sodium 142 mmol/L (135-145); Triglycerides 149 mg/dL (<150); Vitamin D 25-OH Total 49.7 ng/mL (>30)
[2022-12-24 14:38] LABS: Factor VIII Activity Clotting 77 % normal (50-180); PTT, Activated 30 sec (23-32); Ristocetin Cofactor 90 % normal (42-200)
== END 2022-12-13 07:22 | disposition home or self-care (01) ==
LOC: HO.HMGCLDS 07:21
PROVIDERS: PCP Internal Medicine; Visit Provider Internal Medicine
DX: K21.9 Gastro-esophageal reflux disease without esophagitis (principal); E78.2 Mixed hyperlipidemia; R73.01 Impaired fasting glucose; Z78.0 Asymptomatic menopausal state; Z83.2 Family history of diseases of the blood and blood-forming organs and certain disorders involving the immune mechanism
CPT/HCPCS: 36415; 80048; 80061; 82306; 83036; 84450; 84460; 85025; 85240; 85245; 85246; 85247; 85610; 85730

== ENCOUNTER 2022-12-27 07:47 | Outpatient (AMB) | payer OTHER, SELFPAY ==
[2022-12-27 07:48] VITALS: BP 128/70; PULSE 87; O2SAT 97; BMI 37.8
--- NOTE | 2022-12-27 07:48 | MHC.PC.OV ---
Vital Signs 12/27/22 07:48 Height 5 ft 5 in Weight 227 lb BMI 37.8 BP 128/70 Blood Pressure Location Lt brachial Position Sitting Pulse 87 Pulse Source Pulse Oximeter Pulse Oximetry (%) 97 Oxygen Delivery Method Room Air Intake Visit Reasons: Annual PE Intake Note: pt is here for annual exam [employer] Director Required: No Allergies No Known Allergies [No Known Allergies*] Allergy (Verified 12/27/22 08:15) Medication List - Last Reconciled 12/27/22 by Julia Fiore MD albuterol sulfate 90 mcg/actuation 2 puffs inhalation Q6H PRN celecoxib 200 mg PO BID PRN cholecalciferol (vitamin D3) 50 mcg PO DAILY duloxetine 60 mg PO DAILY famotidine 40 mg PO DAILY ginkgo biloba 40 mg PO DAILY loratadine 10 mg PO DAILY montelukast 10 mg PO DAILY omega-3 acid ethyl esters (Lovaza) 2 caps PO BID 90 days sumatriptan succinate 100 mg orally wth onset of headache, may repeat after 2 hrs if first tab does not work PRN; 10 days Tobacco use date assessed: 12/27/22 Dental Screening Dental Screen Date: 12/27/22 Did you have a dental visit in the last 12 months?: Yes Did you have a dental problem in the last 6 months where you did not have access to dental care?: No Was dental information given to patient?: Patient has dentist HPI Annual PE HPI Details 62-year-old lady here today for physical exam. She has osteoarthritis, fibromyalgia, osteopenia of left femoral neck, prediabetes, mixed dyslipidemia, history of postlaminectomy syndrome, obesity, migraine headaches, seasonal allergies/bronchospasm and GERD, stable controlled present treatment. She has been feeling well, works from home 4 days a week, does a lot of sitting, not much exercise but has been trying to adhere to healthy diet. She is up-to-date with her bone density scan done 09/21/22 , showing- Osteopenia based on the lowest T-score value of -1.1 in the femoral neck . Up-to-date with her screening mammogram and colonoscopy. She is also up-to-date on her vaccines, but has not yet had her COVID booster or the flu shot or the shingles vaccine. She has been feeling well but has occasional tingling sensation in hands left more than the right. [facility] Medical History Osteopenia of left femoral neck GERD (gastroesophageal reflux disease) Family history of thyroid disease in mother Paresthesias Family history of von Willebrand disease Polyarthralgia Impaired fasting glucose Mixed dyslipidemia Allergic rhinitis Odynophagia Postlaminectomy syndrome Chronic fatigue Family history of thyroid disease Spondylosis of cervical spine Fibromyalgia COVID-19 vaccine series completed History of postoperative nausea and vomiting Asthma Increased BMI History of shingles Postmenopause Family history of ankylosing spondylitis Sacroiliitis Lumbar back pain with radiculopathy affecting lower extremity Surgical History Hx of arthroscopic knee surgery S/P insertion of spinal cord stimulator History of microdiscectomy History of breast mammoplasty History of knee surgery History of total abdominal hysterectomy and bilateral salpingo-oophorectomy Family History Father Arthritis COPD (chronic obstructive pulmonary disease) Afib High cholesterol CVD (cardiovascular disease) Mother Arthritis High cholesterol Graves disease Brother Arthritis Sister Sjogrens syndrome Mental health disorder Maternal Grandmother Breast cancer Myoclonus Rheumatoid arthritis PTSD (post-traumatic stress disorder) Sister Lyme disease Fibromyalgia Graves disease Son No problems noted. Daughter No problems noted. Maternal Aunt Mental health disorder Social History Housing: House Are you a primary neonatal critical care nurse to a significant other at home: No Do you presently have visiting nurse or other home services: No Alcohol intake: never Patient Tobacco Use Status: Former Tobacco user Quit Date: decades ago e-Cigarette/Vaping Use: Never Used Second Hand Smoke Exposure: No Advance Directives Date on File: 02/26/20 service: No Current occupational status: employed Cognitive needs: No Hearing needs: No Vision needs: No Female Reproductive History Menstrual Menopause type: surgical Questionnaire PHQ-9 Over the last 2 weeks, how often have you been bothered by any of the following problems? 1. Little interest or pleasure in doing things: not at all 2. Feeling down, depressed, or hopeless: not at all 3. Trouble falling or staying asleep, or sleeping too much: several days 4. Feeling tired or having little energy: several days 5. Poor appetite or overeating: several days 6. Feeling bad about yourself - or that you are a failure or have let yourself or your family down: not at all 7. Trouble concentrating on things, such as reading the newspaper or watching television: not at all 8. Moving or speaking so slowly that other people could have noticed. Or the opposite - being so fidgety or restless that you have been moving around a lot more than usual: not at all 9. Thoughts that you would be better off or of hurting yourself in some way: not at all Total score: 3 Depression Screening Interpretation: Negative Source: Developed by Drs. Humble Martini, Melina Geiger, Akash Loya and colleagues, with an educational nishant from [employer]. Thrive Questionnaire Date Thrive assessed: 12/27/22 I am a: Patient What is your living situation today?: I have a steady place to live Within the past 12 months, did the food you bought not last and you didn't have the money to get more?: Never true Within the past 12 months, did you worry whether your food would run out before you got money to buy more?: Never true Do you have trouble paying for medicines?: No Do you have trouble getting transportation to medical appointments?: No Do you have trouble paying your heating and electricity bill?: No Do you have trouble taking care of your child, family member or friend?: No Do you have trouble with day-to-day activities such as bathing, preparing meals, shopping, managing finances, etc.?: No Are you currently unemployed and looking for a job?: No Are you interested in more education?: No Please select the resources that you would like help with: None Currently or been in a relationship where the following occur: no concerns reported KEILY-7 AMB Questionnaire KEILY-7 Date KEILY - 7 assessed: 12/27/22 Feeling nervous, anxious, or on edge: 0 = Not at all Not being able to stop or control worryin = Several days Worrying too much about different things: 1 = Several days Trouble relaxin = Not at all Being so restless that it is hard to sit still: 0 = Not at all Becoming easily annoyed or irritable: 0 = Not at all Feeling afraid as if something awful might happen: 0 = Not at all Total KEILY-7 score (0-4 normal; 5-9 mild; 10-14 moderate; 15-21 severe): 2 Source: Developed by Drs. Humble Martini, Melina Geigre, Akash Loya and colleagues, with an educational nishant from [employer]. KEILY-7 Assessment Billing KEILY-7 Assessment Tool: KEILY-7 Assessment 31943 Review of Systems Const Denies chills, Denies fatigue, Denies fever(s), Denies headache(s), Denies lethargy and Reports weight loss Eyes Denies change in vision ENT Reports Normal hearing present, Denies vertigo and Denies headache(s) Card Denies diaphoresis, Denies syncope, Denies rapid heart rate, Denies pedal edema, Denies edema and Denies irregular heart rhythm Resp Denies chest congestion, Denies cough, Denies hemoptysis, Denies excessive phlegm production, Denies pain on inspiration and Denies pain with cough GI Denies abdominal pain, Denies melena, Denies change in bowel habits and Denies nausea Reports urinary incontinence (Occasional when laughing) Musc Denies back pain, Reports arthralgias (Fingers of both hands) and Denies joint swelling Skin/Breast Denies breast swelling, Denies breast pain, Denies breast mass and Denies lesions Neuro Reports Normal hearing present, Denies vertigo, Denies syncope, Denies headache(s) and Denies lack of coordination Psych Reports no additional complaints Endo Denies fatigue Boris/Lymph Denies easy bleeding and Denies easy bruising Aller/Immun Reports no additional complaints Physical exam (Primary Care) Vital Signs: Last Vital Signs Pulse 87 12/27/22 07:48 BP 128/70 12/27/22 07:48 Pulse Ox 97 12/27/22 07:48 Oxygen Delivery Method Room Air 12/27/22 07:48 BMI result Body Mass Index 37.8 Tobacco/Smoking Status: Tobacco use Status Tobacco use date assessed 12/27/22 12/27/22 07:48 Patient Tobacco Use Status Former Tobacco user 12/27/22 07:48 e-Cigarette/Vaping Use Never Used 12/27/22 07:48 PHQ-9: PHQ-9 Score PHQ-9: Total score 3 12/27/22 09:52 Depression Screening Interpretation: Negative Thrive Assessment: Date of Thrive Assessment Date Thrive assessed 12/27/22 12/27/22 09:32 Currently or been in a relationship where the following occur: no concerns reported Const General: cooperative, healthy appearing, comfortable and no acute distress Orientation/consciousness: patient oriented x3 HENTN Head: Yes normocephalic and Yes atraumatic Ears: hearing grossly normal bilaterally and TM's normal bilaterally General nose exam: Normal external nose present and No nasal discharge present Face and sinus: Yes face symmetric Mouth: Normal oral and palatal mucosa present, tongue normal, oropharynx normal and moist mucous membranes Eyes General: appearance normal, both eyes and all related structures Neck Neck: Yes full ROM, Yes no lymphadenopathy, Yes trachea midline and Yes supple Chest Breast/axilla palpation: normal palpation of the breasts Resp Auscultation: clear to auscultation bilaterally Cardio Other: S1-S2 present regular rate and rhythm GI Other: Normal bowel sounds, obese, slight discomfort on palpation over the epigastric area, no rebound, no mass or guarding. General: Yes no CVA tenderness Back/Spine/Pelvis Back: no CVA tenderness Thoracic/Lumbar Spine: paraspinal muscle tenderness and thoraco-lumbar ROM limited Skin General skin exam: no rashes or lesions noted Neuro General: patient oriented x3, gait normal, tone normal, moves all extremities, Normal light touch and pain sensation, no focal motor deficits and CN's II-XI intact bilaterally Cranial nerves: Yes Normal hearing present Extrem Other: Mild elevation of fingers of both hands. General: Yes full ROM, Yes no joint enlargement, Yes no clubbing, cyanosis or edema, Yes no pedal edema, Yes no calf tenderness and Yes normal gait Left lower extremity: knee (Crepitus present) Psych Appearance: grossly normal and well kempt Mental Status: mental status grossly normal Speech and movement: Normal speech and movement present Affect: normal affect Attitude: cooperative Thought process: Normal thought process present Thought content: Normal thought content present Results Reviewed Results Reviewed: ENTERED: 12/13/22 PRIMO HARRISON: ORDERED: CBC Auto Diff Test Result Flag Reference Site WBC 8.3 4.8-10.8 X10*3/uL RBC 5.37 4.20-5.50 X10*6/uL HGB 13.9 12.0-16.0 g/dl HCT 44.2 37.0-47.0 % MCV 82.3 80.0-98.0 fL MCH 25.9 L 27.0-33.0 pg MCHC 31.4 31.0-35.0 g/dl RDW 13.9 11.0-16.0 % PLT 265 160-400 X10*3/uL MPV 11.0 9.4-12.3 fL Neut Pct Auto 54.0 45-73 % ImGran Pct Auto 0.2 0.0-0.4 % Lymp Pct Auto 34.1 20-40 % Island Pct Auto 8.1 2-11 % Eos Pct Auto 2.9 0-4 % Baso Pct Auto 0.7 0-2 % NRBC Pct Auto 0.0 0.0-0.2 /100WBC ANC Neut Abs # 4.5 2.0-8.3 x10*3/uL ImGran Abs Auto 0.02 0.00-0.03 X10*3/uL Lymph Abs Auto 2.8 1.2-4.9 X10*3/uL Island Abs Auto 0.7 0.1-1.2 X10*3/uL Eos Abs Auto 0.2 0.0-0.4 X10*3/uL Baso Abs Auto 0.1 0.0-0.2 X10*3/uL NRBC Abs Auto 0.000 0.0-0.012 X10*3/uL ENTERED: 12/13/22 PRIMO HARRISON: ORDERED: Met Prof Fast, AST, ALT, Lipid Panel, Vitamin D 25-OH Test Result Flag Reference Site Sodium 142 135-145 mmol/L Potassium 4.1 3.3-5.1 mmol/L CL 107 96-108 mmol/L CO2 26 22-29 mmol/L Gap 13 12-20 BUN 21 H 9-16 mg/dL Creat 0.73 0.5-1.4 mg/dL EGFR > 60 NOTE: For -[place] individuals, multiply the result by 1.210. Chronic Kidney Disease: Estimated GFR < 60 mL/min/1.73m2 Severe Kidney Disease: Estimated GFR < 15 mL/min/1.73m2 FBS 107 H 60-99 mg/dL A fasting glucose from 100-125 mg/dl is considered impaired (pre-diabetes). CA 9.6 8.4-10.2 mg/dL AST (GOT) 20 5-31 U/L ALT (GPT) 25 0-31 U/L Triglyceride 149 <150 mg/dL Desirable Triglyceride: less than 150 mg/dL Borderline High Triglyceride 150-199 mg/dL High Triglyceride: 200-499 mg/dL Very High Triglyceride: greater than or equal to 5OO mg/dL Cholesterol 254 H <200 mg/dL Desirable Cholesterol: less than 200 mg/dL Borderline High Cholesterol: 200-239 mg/dL High Cholesterol: greater than 239 mg/dL LDL Calculated 172 H <100 mg/dL Desirable LDL: less than 100 mg/dL Near Optimal/Above Optimal LDL: 110-129 mg/dL Borderline High LDL: 130-159 mg/dL High LDL: 160-189 mg/dL Very High LDL: greater than or equal to 190 mg/dL HDL 53 >40 mg/dL Desirable HDL: greater than 40 mg/dL Note: This HDL assay may give artificially low results in patients with liver disease. Vit D 25-OH Tot 49.7 >30 ng/mL Health Based Reference Values* < 20 ng/mL Deficient 20-30 ng/mL Insufficient > 30 ng/mL Sufficient ENTERED: 12/13/22 PRIMO HARRISON: ORDERED: Hgb A1c Test Result Flag Reference Site A1c % 5.8 <6.0 % Hemoglobin A1C Reference Range Adults: 4.8 - 6.0 % Non diabetic: < 6.0 % Goal: < 7.0 % Additional Action Suggested: > 8.0 % Note: Hemoglobin A1c results are invalid for patients with abnormal amounts of HbF. Blood transfusions may impact the HbA1c concentration in the patient sample. Est. Avg. Gluc 120 mg/dL eAG = Estimated average glucose which is %A1C expressed as average glucose, using the formula of the E1O-Mymmvxl Average Glucose study (ADAG), Diabetes Care, Vol.31,#8, 2007 Assessment and Plan Assessment & Plan (1) Annual visit for general adult medical examination with abnormal findings: Code(s): Z00.01 - Encounter for general adult medical examination with abnormal findings Plan: reviewed latest lab results with patient continue regular dental visit every 6 months and regular eye exams, at least every 2 years, sees [facility]. Take adequate calcium in diet and vitamin-D 3 at 2000 IU per cap once a day, in addition to weight-bearing exercises to help maintain good muscle tone and weight control. Instructed to do self-breast exam, and continue to get yearly mammogram, currently up-to-date. She is also up-to-date with her bone density scan showing osteopenia in left femoral neck . She is up-to-date with her screening colonoscopy, and reminded to get her COVID booster and flu shot as well as her Shingrix vaccination. (2) Paresthesias: Code(s): R20.2 - Paresthesia of skin Plan: Check vitamin B12 and vitamin, if normal likely due to her arthritis (3) Mixed dyslipidemia: Code(s): E78.2 - Mixed hyperlipidemia Plan: Higher LDL cholesterol compared to last check, advised to start following again low-cholesterol diet and getting regular exercise. Will repeat another fasting lipid panel in six-month (4) Family history of thyroid disease: Code(s): Z83.49 - Family history of other endocrine, nutritional and metabolic diseases Plan: Check TSH and free T4 (5) Postlaminectomy syndrome: Code(s): M96.1 - Postlaminectomy syndrome, not elsewhere classified Plan: Currently sees Dr. Ellis, continue with Celebrex (6) Polyarthralgia: Code(s): M25.50 - Pain in unspecified joint Plan: Continue Celebrex, continue regular exercise (7) Family history of thyroid disease in mother: Code(s): Z83.49 - Family history of other endocrine, nutritional and metabolic diseases (8) GERD (gastroesophageal reflux disease): Code(s): K21.9 - Gastro-esophageal reflux disease without esophagitis Plan: Takes famotidine 40 mg daily (9) Impaired fasting glucose: Code(s): R73.01 - Impaired fasting glucose Plan: Your fasting blood sugars elevated above 100 mg/dL. Impaired glucose metabolism O2 at risk for developing diabetes mellitus type 2, as well as heart attack and stroke later on. Lifestyle changes at just weight loss, healthy eating habits, and regular exercise are important, and can prevent the progression to diabetes (10) Osteopenia of left femoral neck: Code(s): M85.852 - Other specified disorders of bone density and structure, left thigh Plan: Continue doing regular weight-bearing exercises, take adequate calcium through dietary sources and take vitamin-D 3 at least 2000 units daily. Repeat another bone density scan in 2024 (11) Fibromyalgia: Code(s): M79.7 - Fibromyalgia Plan: Controlled with duloxetine and Celebrex, continue doing regular stretches and exercise Orders: Orders TSH reflex Free T4 Today R20.2 - Paresthesia of skin, Z83.49 - Family history of other endocrine, nutritional and metabolic diseases Vitamin B12 and Folate Today R20.2 - Paresthesia of skin, Z83.49 - Family history of other endocrine, nutritional and metabolic diseases Lipid Panel 6 Months E78.2 - Mixed hyperlipidemia, R73.01 - Impaired fasting glucose Glucose Fasting 6 Months E78.2 - Mixed hyperlipidemia, R73.01 - Impaired fasting glucose Coding Level of Care Code Est Pt Prev Care 40-64y(28540) Diagnoses Annual visit for general adult medical examination with abnormal findings Z00.01 Paresthesias R20.2 Mixed dyslipidemia E78.2 Family history of thyroid disease Z83.49 Postlaminectomy syndrome M96.1 Polyarthralgia M25.50 Family history of thyroid disease in mother Z83.49 GERD (gastroesophageal reflux disease) K21.9 Impaired fasting glucose R73.01 Osteopenia of left femoral neck M85.852 Fibromyalgia M79.7 Additional Codes KEILY-7 Assessment Billing - KEILY-7 Assessment Tool: KEILY-7 Assessment 80331 ([id number])
== END 2022-12-27 14:06 | disposition home or self-care (01) ==
PROVIDERS: Visit Provider Internal Medicine
DX: Z00.00 Encounter for general adult medical examination without abnormal findings (principal); Z83.49 Family history of other endocrine, nutritional and metabolic diseases; K21.9 Gastro-esophageal reflux disease without esophagitis; R20.2 Paresthesia of skin; E78.2 Mixed hyperlipidemia; M96.1 Postlaminectomy syndrome, not elsewhere classified; M25.50 Pain in unspecified joint; R73.01 Impaired fasting glucose; M85.852 Other specified disorders of bone density and structure, left thigh; M79.7 Fibromyalgia
CPT/HCPCS: 99396

== ENCOUNTER 2022-12-27 08:53 | Outpatient (REF) | payer OTHER, SELFPAY ==
[2022-12-27 12:49] LABS: Folate 13.1 ng/mL (> or = 4.0); Vitamin B12 424 pg/mL (200-900)
== END 2022-12-27 08:54 | disposition home or self-care (01) ==
LOC: HO.HMGCLDS 08:53
PROVIDERS: PCP Internal Medicine; Visit Provider Internal Medicine
DX: R20.2 Paresthesia of skin (principal); Z83.49 Family history of other endocrine, nutritional and metabolic diseases
CPT/HCPCS: 36415; 82607; 82746; 84443

== ENCOUNTER 2023-06-18 08:10 | Outpatient (AMB) | payer OTHER, SELFPAY ==
--- NOTE | 2023-06-18 08:46 | AM.OFFWIN_ITS ---
Intake Vital Signs 06/18/23 08:47 Height 5 ft 5 in Weight 230 lb BMI 38.3 BP 126/80 Blood Pressure Location Lt brachial Position Sitting Pulse 76 Pulse Source Pulse Oximeter Temp 97.9 F Temp Source Temporal Artery Scan Pulse Oximetry (%) 98 Oxygen Delivery Method Room Air Intake Visit Reasons: EP Sore throat (masked) Intake Note: pt is here today for sore throat started saturday Patient Tobacco Use Status: Former Tobacco user Quit Date: decades ago Allergies No Known Allergies [No Known Allergies*] Allergy (Verified 06/18/23 09:11) Medication List - Last Reconciled 06/18/23 by Dany Gee MD albuterol sulfate 90 mcg/actuation 2 puffs inhalation Q6H PRN celecoxib 200 mg PO BID PRN cholecalciferol (vitamin D3) 50 mcg PO DAILY duloxetine 60 mg PO DAILY famotidine 40 mg PO DAILY ginkgo biloba 40 mg PO DAILY loratadine 10 mg PO DAILY montelukast 10 mg PO DAILY omega-3 acid ethyl esters (Lovaza) 2 caps PO BID 90 days sumatriptan succinate 100 mg orally wth onset of headache, may repeat after 2 hrs if first tab does not work PRN; 10 days Do you need a note to return to daycare/school/sports/work: Yes HPI EP Sore throat (masked) HPI Details Patient presents for a sick visit. Reporting symptoms of sinus congestion, sore throat and difficulty swallowing. Low-grade fever. No family member is sick. No recent travel. Patient reports symptoms of malaise and fatigue. [facility] Medical History Osteopenia of left femoral neck GERD (gastroesophageal reflux disease) Family history of thyroid disease in mother Paresthesias Family history of von Willebrand disease Polyarthralgia Impaired fasting glucose Mixed dyslipidemia Allergic rhinitis Odynophagia Postlaminectomy syndrome Chronic fatigue Family history of thyroid disease Spondylosis of cervical spine Fibromyalgia COVID-19 vaccine series completed History of postoperative nausea and vomiting Asthma Increased BMI History of shingles Postmenopause Family history of ankylosing spondylitis Sacroiliitis Lumbar back pain with radiculopathy affecting lower extremity Surgical History Hx of arthroscopic knee surgery S/P insertion of spinal cord stimulator History of microdiscectomy History of breast mammoplasty History of knee surgery History of total abdominal hysterectomy and bilateral salpingo-oophorectomy Family History Father Arthritis COPD (chronic obstructive pulmonary disease) Afib High cholesterol CVD (cardiovascular disease) Mother Arthritis High cholesterol Graves disease Brother Arthritis Sister Sjogrens syndrome Mental health disorder Maternal Grandmother Breast cancer Myoclonus Rheumatoid arthritis PTSD (post-traumatic stress disorder) Sister Lyme disease Fibromyalgia Graves disease Son No problems noted. Daughter No problems noted. Maternal Aunt Mental health disorder Social History Housing: House Are you a primary child day care teacher to a significant other at home: No Do you presently have visiting nurse or other home services: No Alcohol intake: never Comment: pt's baseline is 10/22 Patient Tobacco Use Status: Former Tobacco user Quit Date: decades ago e-Cigarette/Vaping Use: Never Used Second Hand Smoke Exposure: No Advance Directives Date on File: 02/26/20 service: No Current occupational status: employed Cognitive needs: No Hearing needs: No Vision needs: No Physical Exam Vital Signs: Last Vital Signs Temp 97.9 F 06/18/23 08:47 Pulse 76 06/18/23 08:47 BP 126/80 06/18/23 08:47 Pulse Ox 98 06/18/23 08:47 Oxygen Delivery Method Room Air 06/18/23 08:47 BMI result Body Mass Index 38.3 Const General: cooperative and healthy appearing Nutritional Appearance: well nourished Orientation/consciousness: patient oriented x3 Limitations: no limitations HEENT Head: Yes normal to inspection Eyes General: appearance normal, both eyes and all related structures Neck Neck: Yes normal visual inspection Chest Chest palpation & inspection: normal palpation of entire chest wall Resp Effort & Inspection: normal respiratory effort Neuro General: patient oriented x3 Results AMB Rapid Strep AMB Rapid Strep Negative Last Edit by Jovanny Bruce on 06/18/23 09:04 Results Reviewed Results Reviewed: Laboratory Last Values Strep Scn [facility] Negative 06/18/23 09:03 Assessment & Plan Assessment & Plan (1) Upper respiratory tract infection: Code(s): J06.9 - Acute upper respiratory infection, unspecified Plan: Antibiotics ordered. Increase fluid intake. Tylenol for aches and pains. If symptoms worsen, follow-up here for a recheck. Coding Level of Care Code Est Pt Level 3 (69075) Diagnoses Upper respiratory tract infection J06.9
[2023-06-18 08:47] VITALS: BP 126/80; PULSE 76; TEMP 36.6; O2SAT 98; BMI 38.3
== END 2023-06-18 09:52 | disposition home or self-care (01) ==
PROVIDERS: PCP Internal Medicine; Visit Provider Internal Medicine
DX: J06.9 Acute upper respiratory infection, unspecified (principal)
CPT/HCPCS: 99213

== ENCOUNTER 2023-09-16 12:26 | Outpatient (REF) | payer OTHER, SELFPAY ==
--- NOTE | ~2023-09-16 | CT_ITS ---
EXAMINATION: CT CERVICAL SPINE WITHOUT CONTRAST CLINICAL INFORMATION: Cervical spondylosis, radiculopathy, left upper extremity numbness, paresthesia COMPARISON: None available. TECHNIQUE: Multiple 2.0 and 0.6 mm axial images were obtained from base of skull to T1 levels without IV contrast enhancement. Sagittal and coronal 2.0 mm bone window images were reconstructed from axial image data. This CT examination was performed using dose optimization techniques as appropriate, variously including the following: *Automated exposure control *Adjustment of mA and/or kV according to patient size (this includes techniques or standardized protocols for targeted exams where dose is matched to indication/reason for exam; i.e. extremities or head) *Use of iterative reconstruction technique DLP: 371.57 mGy-cm FINDINGS: C1/C2: Bony structures are intact with normal alignment. There is no spinal stenosis. C2/C3: Bony structures are intact with normal alignment. There is no spinal stenosis. Bilateral C2/C3 neuroforamina are patent. Bilateral apophyseal joints are intact with normal alignment. C3/C4: Bony structures are intact with normal alignment. There is no spinal stenosis. Bilateral C3/C4 neuroforamina are patent. Bilateral apophyseal joints are intact with normal alignment. C4/C5: Bony structures are intact with normal alignment. There is no spinal stenosis. Bilateral C4/C5 neuroforamina are patent. Bilateral apophyseal joints are intact with normal alignment. C5/C6: Bony structures are intact with normal alignment. Sharp anterior and posterior syndesmophytes are present. There is no spinal stenosis. There is mild asymmetric left C5/C6 neuroforaminal stenosis. Bilateral apophyseal joints are intact with normal alignment. C6/C7: Bony structures are intact with normal alignment. There is marked decrease in intervertebral disc height. Sharp anterior and posterior syndesmophytes are present. There is no spinal stenosis. There is mild asymmetric right C6/C7 neuroforaminal stenosis. Bilateral apophyseal joints are intact with normal alignment. C7/T1: Bony structures are intact with normal alignment. There is no spinal stenosis. Bilateral C7/T1 neuroforamina are patent. Bilateral apophyseal joints are intact with normal alignment. Multilevel bilateral apophyseal joint and uncovertebral joint osteoarthritis with loss of joint space, sclerosis, facet hypertrophy and osteophytosis are seen. CT/CT cervical spine wo IV con IMPRESSION: 1. No evidence of acute fracture or dislocation. 2. Advanced C6-C7 degenerative cervical disc disease, C5-C7 anterior and posterior syndesmophytes are present. 3. Mild asymmetric left C5/C6 and right C6/C7 neuroforaminal stenosis. 4. Multilevel bilateral apophyseal joint and uncovertebral joint osteoarthritis.
== END 2023-09-16 12:27 | disposition home or self-care (01) ==
LOC: HO.CT 12:26
PROVIDERS: Visit Provider Internal Medicine
DX: M47.22 Other spondylosis with radiculopathy, cervical region (principal)
CPT/HCPCS: 72125

== ENCOUNTER 2023-09-20 10:29 | Outpatient (AMB) | payer OTHER, SELFPAY ==
--- NOTE | 2023-09-20 11:36 | A.SPINEOV_ITS ---
Intake Visit Reasons: Neck pain Intake Note: Ms. Hutton is here today c/o neck pain [place] [facility] [place] Required: No Allergies No Known Allergies [No Known Allergies*] Allergy (Verified 06/18/23 09:11) Assessment & Plan Assessment & Plan (1) Difficulty speaking: Code(s): R47.9 - Unspecified speech disturbances Category: Medical Plan Dear Dr Fiore, Thank you for referring Mrs Hutton to our office today. She is a very nice 63-year-old female who presents to the office today for evaluation of 3 months of neck pain and left upper extremity tingling and electrical sensation going down into her hand including her thumb and index finger. The symptoms started without any specific provocative event. They been getting steadily worse over time. The symptoms can change with how she moves her head. She has been doing physical therapy at home with an online physical therapist who does zoom video guided PT with her at her house. Those exercises do not seem to be doing much. She takes Celebrex and Tylenol. She has getting to the point now where she is feeling that she has more discomfort and more days where she is uncomfortable than she had in the last month. She was sent to us today with a CT scan showing significant disc degeneration in her cervical spine. She denies any myelopathic symptoms. No bowel or bladder incontinence. PMH: She has extensive lumbar history, specifically she underwent a lumbar decompression at L4[facility] Atwood a few years back and unfortunately that did not help her and in fact only seemed to make her pain worse. She has been followed here by the pain management office and has undergone 2 separate spinal cord stimulators. One of which currently is in the off position and does not allow her to get MRIs. She has a history of breast reduction, hysterectomy, fibromyalgia, osteoarthritis, environmental allergies. Denies any history of heart attack, stroke, kidney disorders, liver disorders, bleeding disorders, cancer, pulmonary problems, major abdominal surgery. Social hx: She does not smoke, does not drink use any recreational drugs Medications: Duloxetine, Celebrex, vitamin-D, fish oil, allergy pill, Singulair Allergies: No known drug allergies Physical exam: Awake alert oriented no acute distress, she has mild weakness of her left biceps but the rest of the motor examination is normal. She has absent reflex at the left biceps and left triceps. No Echeverria's sign. Gait is normal. Imaging review: There is a cervical CT done at [facility] as well as previous cervical x-rays done dating back 5-6 years ago and this shows progressive collapse of the C5-6 and C6-7 disc space. There is neuroforaminal narrowing as well. Impression: 63-year-old female presents to the office today for evaluation of neck pain and what sounds like a left C6 radiculopathy with mild biceps weakness and absent reflex on the left. She has been through some basic conservative treatment including tincture of time, anti-inflammatories, Tylenol as well as physical therapy. At this point the patient's very uncomfortable with the electrical sensation running down her arm in the neck pain. Dr. Knutson and I reviewed the patient's CT scan in her x-rays and believes should be a good candidate for an ACDF C5-6, C6-7. The patient has recently been feeling like she has developed a vocal hoarseness over the last 3-4 months for reasons that are unclear. Her voice is not strong and feels like it is very fatigued she has to talk loud. Because there is some risk, although it is very low, there could be injury to the recurrent laryngeal nerve which could give her unilateral vocal cord paralysis, we would like to make sure that she does not already have a defect in the vocal cords themselves before we operate. We have tentatively scheduled her surgery for November. We will get the ENT evaluation done before then hopefully. Pt was given risk and benefits of surgery including but not limited to infection, hematoma , nerve injury,durotomy, weakness,bowel/bladder injury, persistent pain, vocal hoarseness, dysphagia as well as the option to continue with conservative treatment and patient wishes to proceed with surgery. Pt is aware they should stop their motrin, aspirin 7 days prior to surgery. All questions were answered to the best of our ability. If there is anything about this patients medical history that we have overlooked or concerns you have about us proceeding with surgery we would appreciate any input you can offer. Thank you for allowing us to care for your patient. The total time spent with this visit with this patient was 45 minutes reviewing history, physical exam, cervical CT imaging review, and implementation of treatment plan or further diagnostic testing Jaime Knutson MD,PhD [facility] Orders: Referrals Ear/Nose/Throat Referral R47.9 - Unspecified speech disturbances Coding Level of Care Code New Pt Level 4 (88012) Diagnoses Difficulty speaking R47.9
== END 2023-09-20 12:07 | disposition home or self-care (01) ==
PROVIDERS: PCP Internal Medicine; Referring Provider Internal Medicine; Visit Provider Physician Assistant
DX: R47.9 Unspecified speech disturbances (principal)
CPT/HCPCS: 99204

== ENCOUNTER → 2023-09-20 10:29 | Outpatient (BNVA) | payer OTHER, SELFPAY | PROVIDERS: PCP Internal Medicine; Visit Provider Physician Assistant ==

== ENCOUNTER 2023-10-10 08:56 | Outpatient (REF) | payer OTHER, SELFPAY ==
--- NOTE | ~2023-10-10 | MM_ITS ---
EXAMINATION: MM SCREENING DIGITAL BREAST TOMOSYNTHESIS, BILATERAL CLINICAL INFORMATION: Screening. Asymptomatic. The patient is status post bilateral breast reduction. COMPARISON: Mammography: This study is compared with prior exams dating back to 2019. TECHNIQUE: Digital breast tomosynthesis is performed in both the craniocaudal and mediolateral oblique views along with computer-aided detection (CAD). Synthesized 2D images are generated from the tomosynthesis. FINDINGS: There are scattered areas of fibroglandular density (ACR BI-RADS breast composition Category b). There are no significant masses, abnormal calcifications, or other abnormalities. There are post reduction changes in the right breast. MM/MM tomosynthesis screening BI IMPRESSION: No mammographic evidence of malignancy. ASSESSMENT: BI-RADS BI-RADS 2 - Benign Findings RECOMMENDATION: Routine annual mammography screening. 1 year F/U This examination should not preclude the clinical evaluation of a suspicious palpable abnormality. This patient's information was entered into a reminder system with a target due date for their next mammogram.
== END 2023-10-10 08:57 | disposition home or self-care (01) ==
LOC: HO.MAMMO 08:56
PROVIDERS: PCP Internal Medicine; Visit Provider Internal Medicine
DX: Z12.31 Encounter for screening mammogram for malignant neoplasm of breast (principal)
CPT/HCPCS: 77063; 77067

== ENCOUNTER → 2023-10-10 09:15 | Outpatient (BNV) | payer OTHER, SELFPAY | PROVIDERS: PCP Internal Medicine; Visit Provider Radiology Diagnostic Radiology | DX: Z12.31 Encounter for screening mammogram for malignant neoplasm of breast (principal) | CPT/HCPCS: 77063; 77067 ==

== ENCOUNTER → 2023-11-22 12:38 | Outpatient (BNV) | payer OTHER, SELFPAY | PROVIDERS: PCP Internal Medicine; Visit Provider Internal Medicine Cardiovascular Disease | DX: Z01.810 Encounter for preprocedural cardiovascular examination (principal) | CPT/HCPCS: 93010 ==

== ENCOUNTER → 2023-12-05 11:00 | Outpatient (BNV) | payer OTHER, SELFPAY | PROVIDERS: PCP Internal Medicine; Visit Provider Physician Assistant | DX: M54.12 Radiculopathy, cervical region (principal) | CPT/HCPCS: 20936; 22551; 22552; 22845; 22853; 99499 ==

== ENCOUNTER → 2023-12-05 | Day surgery (SDC) | payer OTHER, SELFPAY ==
--- NOTE | 2023-11-22 | ECG_ITS ---
Test Reason : PREOP Blood Pressure : / mmHG Vent. Rate : 081 BPM Atrial Rate : 081 BPM P-R Int : 128 ms QRS Dur : 082 ms QT Int : 362 ms P-R-T Axes : 051 009 046 degrees QTc Int : 420 ms Normal sinus rhythm Normal ECG No previous ECGs available Referred By: Tamia Ash Electronically Signed By:VINCENT WHITE MD
[2023-11-22 11:56] VITALS: BP 143/68; PULSE 84; RESP 16; O2SAT 97; BMI 39.9
--- NOTE | 2023-11-22 12:21 | HO.ANESPROP2 ---
Documented by User: Tamia Ash NP 12/03/23 14:24 HPI - Anesthesia Eval Consult details Narrative: 63yo F for C5-6,C6-7 Ant Cerv Discectomy w/ fusion, 12/05/23 No recent illness No CP/SOB within limits of back pain PONV; had scop patch but states still with N/V Spinal stim x 2: left side not used, right side with implanted battery pack will bring remote Asthma: allergy induced, no albuterol needed, singulair helps PMFSH Active Problems Active Problems: All Active Problems Difficulty speaking (Acute) Osteoarthritis of hands, bilateral (Acute) Osteoarthritis of right knee (Acute) Mixed dyslipidemia (Acute) Cervical spondylosis with radiculopathy (Acute) Osteopenia of left femoral neck (Acute) GERD (gastroesophageal reflux disease) (Acute) Family history of thyroid disease in mother (Acute) Paresthesias (Acute) Family history of von Willebrand disease (Acute) Polyarthralgia (Acute) Fibromyalgia (Acute) Impaired fasting glucose (Acute) Mixed dyslipidemia (Acute) Allergic rhinitis (Acute) Postlaminectomy syndrome (Acute) Chronic fatigue (Acute) Family history of thyroid disease (Acute) Spondylosis of cervical spine (Acute) Increased BMI (Acute) Postmenopause (Acute) Lumbar back pain with radiculopathy affecting lower extremity (Acute) Past Medical History Medical History (Updated 11/22/23 @ 12:17 by Sara Walsh RN) PONV (postoperative nausea and vomiting) Environmental allergies Seasonal allergies Cervical spondylosis with radiculopathy Osteopenia of left femoral neck GERD (gastroesophageal reflux disease) Family history of thyroid disease in mother Paresthesias Family history of von Willebrand disease Polyarthralgia Impaired fasting glucose Mixed dyslipidemia Allergic rhinitis Odynophagia Postlaminectomy syndrome Chronic fatigue Family history of thyroid disease Spondylosis of cervical spine Fibromyalgia COVID-19 vaccine series completed History of postoperative nausea and vomiting Asthma Increased BMI History of shingles Postmenopause Family history of ankylosing spondylitis Sacroiliitis Lumbar back pain with radiculopathy affecting lower extremity Family History Family History Father Arthritis COPD (chronic obstructive pulmonary disease) Afib High cholesterol CVD (cardiovascular disease) Mother Arthritis High cholesterol Graves disease Brother Arthritis Sister Sjogrens syndrome Mental health disorder Maternal Grandmother Breast cancer Myoclonus Rheumatoid arthritis PTSD (post-traumatic stress disorder) Sister Lyme disease Fibromyalgia Graves disease Son No problems noted. Daughter No problems noted. Maternal Aunt Mental health disorder Family history of problems with anesthesia: No Surgical History Surgical History Hx of arthroscopic knee surgery S/P insertion of spinal cord stimulator History of microdiscectomy History of breast mammoplasty History of knee surgery History of total abdominal hysterectomy and bilateral salpingo-oophorectomy History of Problems with Anesthesia: Yes (Ponv ) Social History Social History (Updated 11/22/23 @ 12:11 by Sara Walsh RN) Household Members: Spouse Housing: House Are you a primary client care representative to a significant other at home: Yes (mother, will have care by another family member in th post-op period) Do you presently have visiting nurse or other home services: No Alcohol intake: never Comment: aware of trip hazard Patient Tobacco Use Status: Former Tobacco user Tobacco use type: Cigarette Smoked in Last 30 Days: No e-Cigarette/Vaping Use: Never Used Second Hand Smoke Exposure: No Use of substances other than those prescribed or required for medical reasons: No Have you been hit, kicked, punched, or otherwise hurt by someone within the past year? If so, by whom?: No Are you DNR?: No Advance Directives: Yes Advance Directives Information Provided: No Advance Directives on File: Yes Advance Directives Date on File: 02/26/20 Recently lost weight without trying: No Nutrition Risks: No Nutritional Risk Poor oral hygiene: No service: No Current occupational status: employed Cognitive needs: No Hearing needs: No Vision needs: No Meds Allergies Allergy/AdvReac Type Severity Reaction Status Date / Time No Known Allergies Allergy Verified 12/05/23 08:50 [No Known Allergies*] Home Medications ?Medication ?Instructions ?Recorded ?Confirmed ?Last Taken ?Type ginkgo biloba 40 mg tablet 40 mg PO DAILY 08/24/22 11/22/23 Unknown History omega-3 acid ethyl esters 1 gram 1 cap PO BID 11/22/23 11/22/23 11/28/23 History capsule (Lovaza) Exam Height,Weight and Vital Signs: Height 5 ft 4.75 in Weight 107.8 kg Last Vital Signs Pulse 84 11/22/23 11:56 Resp 16 11/22/23 11:56 BP 143/68 H 11/22/23 11:56 Pulse Ox 97 11/22/23 11:56 O2 Del Method Room Air 11/22/23 11:56 Airway Mallampati Class: II TM Dist: >3cm Neck ROM: Limited Loose/Missing/Broken Teeth: Yes (lower left molar pulled) Heart: RRR Lungs: CTAB Assessment and Plan Assessment Anesthesia Assessment: Anesthesia Plan Discussed and PAT Visit Final Anesthetic Review Family History of Problems with Anesthesia: No History of Problems with Anesthesia: Yes (Ponv ) Documented by User: Mimi Soto DO 12/05/23 09:42 [facility] Past Medical History Medical History (Updated 11/22/23 @ 12:17 by Sara Walsh RN) PONV (postoperative nausea and vomiting) Environmental allergies Seasonal allergies Cervical spondylosis with radiculopathy Osteopenia of left femoral neck GERD (gastroesophageal reflux disease) Family history of thyroid disease in mother Paresthesias Family history of von Willebrand disease Polyarthralgia Impaired fasting glucose Mixed dyslipidemia Allergic rhinitis Odynophagia Postlaminectomy syndrome Chronic fatigue Family history of thyroid disease Spondylosis of cervical spine Fibromyalgia COVID-19 vaccine series completed History of postoperative nausea and vomiting Asthma Increased BMI History of shingles Postmenopause Family history of ankylosing spondylitis Sacroiliitis Lumbar back pain with radiculopathy affecting lower extremity Family History Family History Father Arthritis COPD (chronic obstructive pulmonary disease) Afib High cholesterol CVD (cardiovascular disease) Mother Arthritis High cholesterol Graves disease Brother Arthritis Sister Sjogrens syndrome Mental health disorder Maternal Grandmother Breast cancer Myoclonus Rheumatoid arthritis PTSD (post-traumatic stress disorder) Sister Lyme disease Fibromyalgia Graves disease Son No problems noted. Daughter No problems noted. Maternal Aunt Mental health disorder Family history of problems with anesthesia: No Surgical History Surgical History Hx of arthroscopic knee surgery S/P insertion of spinal cord stimulator History of microdiscectomy History of breast mammoplasty History of knee surgery History of total abdominal hysterectomy and bilateral salpingo-oophorectomy History of Problems with Anesthesia: Yes (PONV) Social History Social History (Updated 11/22/23 @ 12:11 by Sara Walsh, SIENNA) Household Members: Spouse Housing: House Are you a primary client care representative to a significant other at home: Yes (mother, will have care by another family member in th post-op period) Do you presently have visiting nurse or other home services: No Alcohol intake: never Comment: aware of trip hazard Patient Tobacco Use Status: Former Tobacco user Tobacco use type: Cigarette Smoked in Last 30 Days: No e-Cigarette/Vaping Use: Never Used Second Hand Smoke Exposure: No Use of substances other than those prescribed or required for medical reasons: No Have you been hit, kicked, punched, or otherwise hurt by someone within the past year? If so, by whom?: No Are you DNR?: No Advance Directives: Yes Advance Directives Information Provided: No Advance Directives on File: Yes Advance Directives Date on File: 02/26/20 Recently lost weight without trying: No Nutrition Risks: No Nutritional Risk Poor oral hygiene: No service: No Current occupational status: employed Cognitive needs: No Hearing needs: No Vision needs: No Meds Allergies Allergy/AdvReac Type Severity Reaction Status Date / Time No Known Allergies Allergy Verified 12/05/23 08:50 [No Known Allergies*] Home Medications ?Medication ?Instructions ?Recorded ?Confirmed ?Last Taken ?Type ginkgo biloba 40 mg tablet 40 mg PO DAILY 08/24/22 11/22/23 Unknown History omega-3 acid ethyl esters 1 gram 1 cap PO BID 11/22/23 11/22/23 11/28/23 History capsule (Lovaza) Exam Exam Date and Time: December 05, 2023929 Height,Weight and Vital Signs: Height 5 ft 4.75 in Weight 107.8 kg Last Vital Signs Pulse 84 11/22/23 11:56 Resp 16 11/22/23 11:56 BP 143/68 H 11/22/23 11:56 Pulse Ox 97 11/22/23 11:56 O2 Del Method Room Air 11/22/23 11:56 Vital Signs Pulse Rate 84 11/22/23 11:56 Respiratory Rate 16 11/22/23 11:56 Blood Pressure 143/68 H 11/22/23 11:56 Pulse Oximetry 97 11/22/23 11:56 Oxygen Delivery Method Room Air 11/22/23 11:56 Pulse Rate 84 11/22/23 11:56 Respiratory Rate 16 11/22/23 11:56 Blood Pressure 143/68 H 11/22/23 11:56 Pulse Oximetry 97 11/22/23 11:56 Oxygen Delivery Method Room Air 11/22/23 11:56 Airway Mallampati Class: I TM Dist: >3cm Neck ROM: Limited Loose/Missing/Broken Teeth: Yes (lower left molar pulled) Heart: S1S2 Assessment and Plan Assessment Anesthesia Assessment: Anesthesia Plan Discussed and Chart Reviewed Final Anesthetic Review Family History of Problems with Anesthesia: No History of Problems with Anesthesia: Yes (PONV) NPO: Yes ASA Class: III Final Preanesthetic Review: No Changes in Pt Med Stat, Meds/Allgs Chart Reviewed, Consent Obtained/Reviewed and Anes Risks/Benef Reviewed Patient Risk: Intermediate Procedure Risk: Intermediate Anesthetic Plan Anesthetic Plan: GA and Agree w/ Assess. and Plan Disposition: Standard PACU
[2023-11-22 13:19] LABS: Hematocrit 43.7 % (37.0-47.0); Hemoglobin 14.3 g/dl (12.0-16.0); Mean Corpuscular HGB Conc 32.7 g/dl (31.0-35.0); Mean Corpuscular Volume 82.5 fL (80.0-98.0); Mean Platelet Volume 10.2 fL (9.4-12.3); Platelet Count 253 X10*3/uL (160-400); Red Cell Distribution Width 13.4 % (11.0-16.0); White Blood Count 9.4 X10*3/uL (4.8-10.8)
[2023-11-22 13:44] LABS: Anion Gap 11 (12-20); Blood Urea Nitrogen 19 mg/dL (9-16); Calcium 9.7 mg/dL (8.4-10.2); Carbon Dioxide 26 mmol/L (22-29); Chloride 107 mmol/L (96-108); Creatinine Clr Calc Pharmacy 89.6; Estimated Glomerular Filt Rate > 60; Glucose Random 119 mg/dL (60-115); Sodium 140 mmol/L (135-145)
[2023-12-05] VITALS (20 sets, daily range): BP systolic 122–174; BP diastolic 49–83; PULSE 75–90; RESP 12–18; TEMP 36.1–36.5; O2SAT 93–98
--- NOTE | 2023-12-05 07:30 | P.DS_ITS ---
DS: Providers Provider Date of Service: 12/05/23 Date of discharge: 12/05/23 Primary care physician: Julia Fiore MD Admitting clinician: Duarte Knutson DS: Diagnosis Discharge Diagnosis (1) Spondylosis of cervical spine: Status: Acute DS: Summary Time Attestation Discharge Coordination Time (in mins): 4 Quality: Safe Use of Opioids Does Pt have an Active Cancer Diagnosis on the Problem List?: No Quality: Stroke Does the patient have a stroke diagnosis?: No Physical Exam Vital Signs: Vital Signs: Last Vital Signs Pulse 84 11/22/23 11:56 Resp 16 11/22/23 11:56 BP 143/68 H 11/22/23 11:56 Pulse Ox 97 11/22/23 11:56 O2 Del Method Room Air 11/22/23 11:56 BMI result Body Mass Index 39.9 Discharge Plan Discharge Patient Disposition: Home, Self-Care Referrals: Julia Fiore MD [Primary Care Provider] - 1 Week Discharge Medications: New docusate sodium [Colace] 100 mg capsule 100 mg PO BID Qty: 20 0RF oxycodone 5 mg tablet 5 mg PO Q4H PRN (Reason: pain) Qty: 20 0RF Rx Instructions: Partial Fill upon patient request. Continued cholecalciferol (vitamin D3) 50 mcg (2,000 unit) capsule 50 mcg PO DAILY Qty: 90 2RF celecoxib 200 mg capsule 200 mg PO BID PRN (Reason: for pain) Qty: 180 3RF duloxetine 60 mg capsule,delayed release(DR/EC) 60 mg PO DAILY Qty: 90 2RF loratadine 10 mg tablet 10 mg PO DAILY Qty: 90 3RF famotidine 40 mg tablet 40 mg PO DAILY Qty: 90 1RF montelukast 10 mg tablet 10 mg PO DAILY Qty: 90 1RF sumatriptan succinate 100 mg tablet 100 mg PO .COMPLEX PRN (Reason: Headache) 10 Days Qty: 10 0RF Rx Instructions: 100 mg orally wth onset of headache, may repeat after 2 hrs if first tab does not work PRN; omega-3 acid ethyl esters [Lovaza] 1 gram capsule 1 cap PO BID ginkgo biloba 40 mg tablet 40 mg PO DAILY Rx Instructions: give with meal/snack Discharge Orders: Discharge Order (Routine); Ordered 12/05/23 Ordered By: Jaime Staton Diet: Advance to usual diet Activity on Discharge: As tolerated Activity Restrictions/Additional Instructions: After your spinal surgery we ask you to observe the following restrictions/guidelines: Activity: It is normal to feel some discomfort as you increase your activity, but that will improve with time. We ask you avoid heavy lifting or acitivities that cause pain. As a general rule, 8lbs is a safe limit for lifting right after surgery. Walk as much as you feel comfortable but not to exhaustion. You will feel extra tired the first few days after surgery. Stay well hydrated. It is OK to walk up and down stairs You may return to driving when you are off narcotics (such as vicodin, oxycodone, dilaudid, etc), and you are back to normal functional capacity. If you have any concerns please check with office before driving. Return to work is specific to each patient and each surgery, so please speak with your doctor/PA at first follow up. Please bring paperwork such as FMLA at that time if you need it filled out. Medications: For optimum pain control, it is best to start with a combination of 500 mg of Tylenol every 4 hours with 600 mg of Motrin every 8 hours, and use narcotics as needed in between for breakthrough pain. We will give you a short supply of narcotics after surgery (usually one weeks worth). If you need more please call the office but do not use more than prescribed. You will need to give our office 48 hours notice if you need narcotics refilled and we do not fill narcotics on weekends or evenings. If you are on a narcotic, it is a good idea to take a stool softener such as colace or senna to avoid constipation If you take blood thinner such as aspirin, Plavix, Coumadin, Effient, Eliquis etc for conditions such as Afib, DVT, Pulmonary embolus, coronary disease, stents etc please speak with your surgeon about specific details as to when you can resume these medications. You can resume NSAIDs on post op day 1 (eg: Motrin, Naproxen, etc). Follow up: Please call the office, , after surgery to arrange a 3 week follow up for wound check. Wound Care: You may remove your dressing on the first day after surgery. ?You may ?leave open to air. Please do not remove the steri strips underneath. they will fall off on their own in one week. IT IS NORMAL FOR THE WOUND TO OOZE OR BE BLOODY FOR A FEW DAYS AFTER SURGERY. ?IF THIS HAPPENS JUST PLACE NEW DRESSING OVER IT TO AVOID STAINING CLOTHES. You may shower on post op day # 1 We ask that you do not let the water soak the wound. If it does get wet, just towel dry lightly. Please do not scrub your incision or place any type of chemical/ointment on the wound. No tub baths, pools or jacuzzis for one month. If you have any leaking or redness from your wound, or fevers, please call office Print Language: Singaporean
--- NOTE | 2023-12-05 08:49 | MHC.SHP ---
Pre-Procedural Eval Section A - 24 Hr Update-Section A only Date of Service: 12/05/23 The patient is an INPATIENT: No Section B - Complete if H&P > 30 days Chief Complaint: Radiculopathy, cervical region,speech disturbances Details of Present Illness: Arm pain Allergies: Allergies Allergy/AdvReac Type Severity Reaction Status Date / Time No Known Allergies Allergy Verified 11/22/23 12:10 [No Known Allergies*] Review of Systems Sugical H&P ROS: Negative: Constitution, Cardiovascular, Respiratory, Neurological, Psychiatric, Hem-Onc, Allergic/Immunologic, Gastrointestinal, Genitourinary, Musculoskeletal, Integumentary, Endocrine and Eyes/Ears/Nose/Throat Exam Surgical H&P Exam: Normal: HEENT, Normal: Heart, Normal: Lungs, Normal: Extremities, Normal: Abdomen, Normal: Skin and Normal: Neurological (Awake, alert) Plan Diagnosis/Plan: Unchanged I have reviewed the history and physical and performed a pertinent physical examination on my patient. No changes have occurred unless specified. Anterior diskectomy and fusion C5-6, C6-7 Time Spent With Patient Time: Total time managing care of this patient today __5__ minutes.
[2023-12-05] MEDS: Scopolamine 1.5 MG PATCH.TD.3 TRANSDERMA (09:40)
[2023-12-05] MEDS: methocarbamoL 750 MG TABLET PO (09:40)
[2023-12-05] MEDS: Gabapentin 300 MG CAPSULE PO (09:40)
[2023-12-05] MEDS: Lactated Ringers 1,000 ML 100 ML IVCONT (09:44)
--- NOTE | 2023-12-05 11:24 | W.PM.OPN ---
Operative Note Operative Note Date of Service: 12/05/23 Narrative: Preoperative Diagnosis: Neck pain and left cervical radiculopathy Procedure: C5-6, C6-7 Anterior discectomy, arthrodesis and implantation cage ; C5-C7 anterior instrumentation ; local autograft; microscope Informed Consent was obtained for this operation. I have explained the nature, purpose and benefits of the operation. I have discussed the risks and benefit of the operation including possible complications or adverse events with patient/family. Alternative(s) were discussed with the patient with their relative benefits and risks as well as the consequences of not accepting the operation were included in obtaining consent. Surgeon: AUGUSTO NIX MD, PHD Procedure Assisted By: racheal Scott Description of Procedure: This 63-year-old female suffering from neck pain and left-sided cervical radiculopathy. An MRI shows degenerative disc disease C5-6 and C6-7 with bilateral foraminal stenosis. The patient was offered an anterior diskectomy and fusion of C5-6 and C6-7. The procedure complications were explained. The patient was consented. The patient was brought to the operating room and endotracheally intubated. The patient was put in supine position with slight extension of the neck. Prep and drape was done followed by timeout. A mid cervical incision was made followed by opening of the platysma. The prevertebral fascia was reached following the natural planes while the physician medical assistant cardiology provided manual retraction. The prevertebral fascia was opened to expose the disc space. A spinal needle was placed in the disk space to confirm the correct level with xray. The longus colli muscles were released bilaterally and a self retaining retractor was inserted. An initial diskectomy was done of C5-6 and C6-7 after an anterior osteophyte was removed from C6-7 to expose the disc space. Two Humnoke pins were placed in the C5 and C6 vertebral bodies and distraction was give over the interspace. The discectomy was completed toward the posterior annulus of the disc. The microscope was brought in. The remainder of the discectomy was completed. The posterior ligament was opened and resected to expose the underlying dura. Osteophytes were resected from the body of C5 and C6 and saved for autograft. Bilateral foraminotomies were done. The endplates were prepared after which a 6 mm cage filled with autograft was inserted into the disc space. A separate attached plate was locked down with 2 x 14 mm screws as anterior instrumentation. Then attention was turned to the C6-7 level. The diskectomy was completed towards the posterior annulus. The PLL was opened and resected to expose the underlying dura. Osteophytes were removed from the body of C6 and C7 and saved for autograft. Again a bilateral foraminotomy was done to decompress the bilateral C7 nerve roots. The endplates were prepared after which a 6 mm cage was inserted into the disc space filled with autograft. A separate attached plate was locked down with 2 x 14 mm screws is anterior instrumentation. Final x-rays in AP and lateral projection showed a satisfactory position of the implants and anterior instrumentation. The physician medical assistant cardiology took over. The Humnoke pin was removed. Hemostasis was done. He closed the incision in 2 layers with a 3-0 Vicryl. Steri-Strips used to approximate incision. An OpSite with Tegaderm was used to cover the incision. All sponge and needle counts were correct. Patient was extubated and transported in stable is to recovery room. Anesthesia: General Estimated Blood Loss (ml): 25 ml Duration of Surgery: 60 minutes Postoperative Plan: Discharge home Complications: None
[2023-12-05] MEDS: fentaNYL citrate/PF 100 MCG/2 ML VIAL 50 MCG IVPUSH ×2 (12:15→12:30)
[2023-12-05] MEDS: HYDROmorphone HCl 0.5 MG/0.5 ML SYRINGE IVPUSH (13:45)
== END | disposition home or self-care (01) ==
LOC: HO.SSS 12-06 09:41
PROVIDERS: Nurse Practitioner; PCP Internal Medicine; Visit Provider Neurological Surgery
PROC: (CPT 22551; principal; 2023-12-05 11:00)
DX: M50.122 Cervical disc disorder at C5-C6 level with radiculopathy (principal); M50.123 Cervical disc disorder at C6-C7 level with radiculopathy; M48.02 Spinal stenosis, cervical region; R47.9 Unspecified speech disturbances; Z79.899 Other long term (current) drug therapy
CPT/HCPCS: 22551; 22552; 22853; 20936; 22845; 36415; 80048; 85027; 93005; C1713; C1889; J0131; J0690; J1100; J1170; J2250; J2405; J2704; J3010

== ENCOUNTER 2023-12-26 11:08 | Outpatient (AMB) | payer OTHER, SELFPAY ==
--- NOTE | 2023-12-26 11:37 | HO.SPINEOV ---
Intake Visit Reasons: 1st post op Intake Note: Ms. Hutton is here today for her 1st post-op. Technician Support Association Required: No Allergies No Known Allergies [No Known Allergies*] Allergy (Verified 12/05/23 08:50) Assessment & Plan Assessment & Plan (1) S/P spinal fusion: Code(s): Z98.1 - Arthrodesis status Category: Surgical Plan Procedure: C5-7 ACDF Seema is a pleasant 63 y/o female who comes in today for her 1st postoperative visit. She reports she is very satisfied with the surgery and feels much better than she did preoperatively. She still has some pain in her bilateral shoulders which is slowly resolving. The burning/electricity feeling accompanied by pain in her left upper extremity has resolved. She is able to feel her fingertips again in the left hand. She denies any issues with her ADLs, but does state she has continued low back pain which is a separate issue that she wishes to discuss with us in the future. She is overall doing very well and is very happy with the procedure. We discussed the postoperative healing course and she reported she would like to return to work part-time for the next few months. No new neurological deficits. Patient is able to ambulate well, rises from a seated position without difficulty. Incision sites are closed, well healing, with no signs of drainage. I completed the returned to work forms for Seema which will keep her at a part-time status for the next couple of months as she acclimates to working after cervical spinal fusion surgery. We will follow-up with the patient in 6 weeks for their 2nd postoperative visit. At that time we will get x-rays to review with the patient. Arben Knutson MD,PhD [facility] Coding Level of Care Code Global (53805) Diagnoses S/P spinal fusion Z98.1
== END 2023-12-26 11:47 | disposition home or self-care (01) ==
PROVIDERS: PCP Internal Medicine; Visit Provider Physician Assistant
DX: Z98.1 Arthrodesis status (principal)
CPT/HCPCS: 99024

== ENCOUNTER → 2023-12-26 11:08 | Outpatient (BNVA) | payer OTHER, SELFPAY | PROVIDERS: PCP Internal Medicine; Visit Provider Physician Assistant ==

== ENCOUNTER 2024-02-07 13:00 | Outpatient (AMB) | payer OTHER, SELFPAY ==
--- NOTE | 2024-02-07 13:43 | HO.SPINEOV ---
Intake Visit Reasons: 2nd post op with Xrays Intake Note: Ms. Huttno is here today for her 2nd post-op with xrays Yard Assistant Required: No Allergies No Known Allergies [No Known Allergies*] Allergy (Verified 12/05/23 08:50) Assessment & Plan Assessment & Plan (1) Lumbar degenerative disc disease: Code(s): M51.369 - Other intervertebral disc degeneration, lumbar region without mention of lumbar back pain or lower extremity pain Category: Medical Plan Mrs Hutton is here in the office today, she is a few months out from her ACDF and has been doing great in terms of her left arm pain and tingling. That is gone, her x-rays look great, she swallowing normal and she is otherwise happy with that. She also wishes to talk about her low back which has been a chronic issue. She has had 2 spinal cord stimulators placed by , with revision of 1 of those, as well as a lumbar microdiskectomy done by many years ago. The last MRI she had was from 2020 here at [place] and this did show evidence of postsurgical changes at L4-5 with facet arthropathy on the left at L4-5, moderate stenosis at L3-4. Her symptoms are primarily back pain radiating down to her hips, she also has some tingling on the outside of her leg. I told her that before we could talk about options for her low back which have been getting steadily worse over the years, we would need some new imaging. Because her spinal cord stimulators are not MRI compatible, I will order a CT myelogram. We will also get flexion-extension x-rays and we will see her back after these are completed. Total amount of time spent in this visit was 20 minutes in discussion of symptoms, previous lumbar MRI imaging results and subsequent plan of care Jaime Knutson MD,PhD [facility] Orders: Orders XR lumbar spine 4V min Today M51.369 - Other intervertebral disc degeneration, lumbar region without mention of lumbar back pain or lower extremity pain CT lumbar post myelography Today M51.369 - Other intervertebral disc degeneration, lumbar region without mention of lumbar back pain or lower extremity pain XR cervical spine 4V Today Z98.1 - Arthrodesis status Coding Level of Care Code Est Pt Level 3 (74142) Diagnoses Lumbar degenerative disc disease M51.369
== END 2024-02-07 14:42 | disposition home or self-care (01) ==
PROVIDERS: PCP Internal Medicine; Visit Provider Physician Assistant
DX: M51.369 Other intervertebral disc degeneration, lumbar region without mention of lumbar back pain or lower extremity pain (principal)
CPT/HCPCS: 99024

== ENCOUNTER 2024-02-07 13:00 | Outpatient (REF) | payer OTHER, SELFPAY | END 2024-02-07 13:01 | disposition home or self-care (01) | LOC: HO.HOSX 13:00 | PROVIDERS: PCP Internal Medicine; Visit Provider Physician Assistant | DX: Z98.1 Arthrodesis status (principal); M51.369 Other intervertebral disc degeneration, lumbar region without mention of lumbar back pain or lower extremity pain | CPT/HCPCS: 72050; 72110 ==

== ENCOUNTER 2024-03-25 09:28 | Day surgery (SDC) | payer OTHER, SELFPAY ==
--- NOTE | ~2024-03-25 | FL_ITS ---
FLUOROSCOPIC GUIDED LUMBAR MYELOGRAM INDICATION: Lower extremity radiculopathy. Unable to have MRI due to noncompatible spinal stimulators. TECHNIQUE: Risks and benefits and possible complications were discussed with the patient and the consent form was signed. Patient was placed prone on the fluoroscopy table. The back was prepped and draped in routine sterile fashion. Betadine was used as a skin antiseptic. Utilizing fluoroscopic guidance, the L4-5 interlaminar space was accessed with a 22 gague quinkie spinal needle. Clear CSF fluid was observed from the needle hub. A total of 10 mL of Isovue-M 200 was then injected through the spinal needle. Contrast was observed entering the thecal sac. The needle was then removed. There were no immediate complications. The patient was then transferred to CT for post myelographic imaging. Total fluoroscopy time: 1.9 min Number of Spot images: 2. DAP = 703.8 uGym^2 FL/FL myelogram spine lumbosacral IMPRESSION: Successful instillation of intrathecal Isovue-M 200 at L4-L5, under direct fluoroscopic guidance. The patient was then transported to CT for post myelographic cross-sectional imaging. This procedure was performed by Ashish Paz PA-C and supervised by Dr. Wilson. Electronically signed by: Lior Wilson MD 03/25/2024 05:25 PM [facility] [place]
[2024-03-25 10:04] VITALS: BMI 39.9
[2024-03-25 12:10] VITALS: BP 133/57; PULSE 68; RESP 18; TEMP 36.5; O2SAT 97
[2024-03-25 12:25] VITALS: BP 148/71; PULSE 68; RESP 18; O2SAT 97
[2024-03-25 12:45] VITALS: BP 135/57; PULSE 69; RESP 18; O2SAT 98
[2024-03-25 13:00] VITALS: BP 125/62; PULSE 70; RESP 16; TEMP 36.5; O2SAT 99
[2024-03-25 13:33] VITALS: BP 124/60; PULSE 72; RESP 16; TEMP 36.4; O2SAT 98
--- OUTSIDE RECORDS SUMMARY | 2024-03-25 23:48 | XMS_ITS | Data Portability ---
Author Organization [facility] [employer] [email or web address] [facility] [address] Address [address] [place] [address] Assessment No assessment recorded. Plan of Treatment Reminders Order Date Submit Date Provider Last Modified By Organization Details Last Modified Time Details Appointments None record ed. Lab None record ed. Referral None record ed. Procedures None record ed. Surgeries None record ed. Imaging None record ed. Medication Orders None record ed. Patient TargetsNo targets recorded. Patient InstructionsNo instructions recorded. Reason for Referral None Reported. 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 Procedure Notes None recorded. Medical Equipment None Reported. Medications Name Sig Start Date Stop Date Status Note LastModified by Organization Details LastModified Time celecoxib 200 mg capsule active Not Available Not Available N ot Available prednisone 10 mg tablet TAPER DIRECTED ON TAPER SHEET active Not Available Not Available No t Available fexofenadine 60 mg tablet active Not Available Not Available Not Available cetirizine 10 mg tablet active Not Available Not Available No t Available azithromycin 250 mg tablet TAKE 2 TABLETS BY MOUTH TODAY, THEN TAKE 1 TABLET DAILY FOR 4 DAYS active Not Available Not Available No t Available sumatriptan 100 mg tablet active Not Available Not Availabl e Not Available tretinoin 0.025 % topical cream active Not Available Not Availabl e Not Available famotidine 40 mg tablet active Not Available Not Available No t Available cephalexin 500 mg capsule TAKE 2 CAPSULES BY MOUTH 3 TIMES A DAY FOR 15 DAYS active Not Available Not Available No t Available omeprazole 20 mg capsule,delaye d release active Not Available Not Available No t Available montelukast 10 mg tablet active Not Available Not Available No t Available oxycodone-acet aminophen 7.5 mg-325 mg tablet TAKE 1 TABLET BY MOUTH 3 TIMES A DAY NEEDED FOR PAIN FOR 7 DAYS active Not Available Not Available No t Available loratadine 10 mg tablet active Not Available Not Available No t Available duloxetine 30 mg capsule,delaye d release active Not Available Not Available No t Available duloxetine 60 mg capsule,delaye d release active Not Available Not Available No t Available omega-3 acid ethyl esters 1 gram capsule active Not Available Not Available Not Available tretinoin 0.05 % topical gel active Not Available Not Availabl e Not Available cholecalcifero l (vitamin D3) 50 mcg (2,000 unit) capsule active Not Available Not Availabl e Not Available Flowflex COVID-19 Antigen Home Test kit active Not Available Not Available Not Available Vitals None Recorded Social History None recorded. Functional Status None recorded. Mental Status None recorded. Family History Nothing Reported. Medical History No medical history recorded. Gynecological HistoryNo gynecological history recorded. Obstetrics History GPAL:G 0 P 0 0 0 0 Past Encounters Encounter ID Performer Location Encounter Start Date Encounter Closed Date Diagnosis/Indication Diagnosis SNOMED-CT Code Diagnosis ICD10 Code [id number] [address] [address] 10/19/2018 09:28:52 10/19/2018 10:06:31 [id number] Chun Griffiths NP [address] [address] 05/28/2022 08:10:49 05/28/2022 09:14:45 History and physical examination, occupation [id number] Z02.1 Health Concerns Section Related Observation LastModified by Organization Detai ls LastModified Time None Recorded Concern Status LastModified by Organization Details LastModified Time None Recorded Advance Directives Directive None Recorded Payers Encounter Date Sequence Insurance Name Policy Number Policy Clemons Covered Member ID Clemons Member ID Guarantor Name 10/19/2018 1 [employer] [id number] Seema Hutton [id number] Seema Hutton 05/28/2022 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
== END 2024-03-25 13:38 | disposition home or self-care (01) ==
PROVIDERS: Radiology Vascular & Interventional Radiology; Visit Provider Physician Assistant
DX: M51.369 Other intervertebral disc degeneration, lumbar region without mention of lumbar back pain or lower extremity pain (principal); M54.17 Radiculopathy, lumbosacral region; R20.0 Anesthesia of skin; Z96.82 Presence of neurostimulator; Z98.890 Other specified postprocedural states; Z98.1 Arthrodesis status
CPT/HCPCS: 62304; 72131; J2003; Q9967

== ENCOUNTER → 2024-03-25 10:54 | Outpatient (BNV) | payer OTHER, SELFPAY | PROVIDERS: Visit Provider Physician Assistant Surgical | DX: M54.10 Radiculopathy, site unspecified (principal) | CPT/HCPCS: 62304 ==

== ENCOUNTER 2024-03-27 10:38 | Outpatient (AMB) | payer OTHER, SELFPAY ==
--- OUTSIDE RECORDS SUMMARY | 2024-03-27 10:47 | XMS_ITS | Data Portability ---
Author Organization [facility] [employer] [facility] [facility] [address] Address [address] [place] [address] Assessment No assessment recorded. Plan of Treatment [...] Out Template NON DOT completed Hayley SILVESTRE [employer] 05/28/2022 08:28:09 Imaging Results None recorded. Procedure [...] Diagnosis/Indication Diagnosis SNOMED-CT Code Diagnosis ICD10 Code [id number] [address] [address] 10/19/2018 09:28:52 10/19/2018 10:06:31 [id number] Chun Griffiths NP [address] [address] 05/28/2022 08:10:49 05/28/2022 09:14:45 History and physical examination, occupation [id number] Z02.1 Health Concerns Section Related Observation LastModified by Organization Detai ls LastModified Time None Recorded Concern Status LastModified by Organization Details LastModified Time None Recorded Advance Directives Directive None Recorded Payers Encounter Date Sequence Insurance Name Policy Number Policy Clemons Covered Member ID Clemons Member ID Guarantor Name 10/19/2018 1 UMR [id number] Seema Hutton [id number] Seema Hutton 05/28/2022 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
--- NOTE | 2024-03-27 11:15 | A.SPINEOV_ITS ---
Intake Visit Reasons: EMG follow up Intake Note: Ms. 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 I reviewed the imaging with Dr. Knutson, she does develop a slight grade 1 spondylolisthesis with standing but it does not move with flexion-extension. We do not think it is enough to justify putting the patient through lumbar fusion surgery as these can sometimes just be incidental findings and not necessarily represent pain generating pathology. She does have varying degrees of facet arthropathy which could explain chronic back pain in addition to the previous surgeries that she has had in her lumbar spine. All of these things could make up the constellation of things that could explain her back pain. Dr. Knutson does not think she would benefit from surgery. I reviewed all the patient's imaging and her x-rays with the patient as well. Total amount of time spent in this visit was 20 minutes in discussion of symptoms, lumbar CT myelogram imaging results and subsequent plan of care Jaime Knutson MD,PhD [facility] Coding Level of Care Code Est Pt Level 3 (79007) Diagnoses Lumbar degenerative disc disease M51.369
== END 2024-03-27 11:44 | disposition home or self-care (01) ==
PROVIDERS: Visit Provider Physician Assistant
DX: M51.369 Other intervertebral disc degeneration, lumbar region without mention of lumbar back pain or lower extremity pain (principal)
CPT/HCPCS: 99213

== ENCOUNTER 2024-05-01 08:34 | Outpatient (REF) | payer OTHER, SELFPAY ==
--- NOTE | ~2024-05-01 | XR_ITS ---
EXAMINATION: XR KNEE, LEFT CLINICAL INFORMATION: M25.569 - Pain in unspecified knee COMPARISON: None available. TECHNIQUE: AP standing 1 view. FINDINGS: Single AP view standing bilateral knee exam reveals loss of medial and lateral compartment joint spaces both knees slightly worse in the medial compartment right knee. No loose bodies, bony erosive changes are fractures seen. Mild bilateral degenerative varus deformities are suspected varus XR/XR knee LT 1V IMPRESSION: Mild degenerative changes medial and lateral compartment both knees slightly worse in the medial compartment right knee. There is bilateral genu varus deformities suspected. Electronically signed by: Marcos Elise MD 05/04/2024 09:23 AM EST
--- NOTE | ~2024-05-01 | XR_ITS ---
EXAMINATION: XR KNEE 3 VIEWS RIGHT HISTORY: M25.569 - Pain in unspecified knee COMPARISON: Comparison is made with the prior examination dated 03/19/2022. Correlation is also made with standing AP views of both knees performed 05/01/2024. FINDINGS: Lateral and sunrise patellar views of the right knee are submitted. Osseous mineralization is normal. There is no fracture or dislocation. There is moderate osteoarthritis of the patellofemoral compartment with joint space narrowing. The soft tissues are unremarkable. There is no joint effusion. XR/XR knee RT 3V IMPRESSION: Moderate osteoarthritis of the patellofemoral compartment. Electronically signed by: Humble Vincent MD 05/04/2024 02:18 PM PRIETO
== END 2024-05-01 08:35 | disposition home or self-care (01) ==
LOC: HO.HOSX 08:34
PROVIDERS: Visit Provider Physician Assistant
DX: M25.561 Pain in right knee (principal); M25.562 Pain in left knee; M17.11 Unilateral primary osteoarthritis, right knee
CPT/HCPCS: 20610; 73560; 73562; J1010; J2003

== ENCOUNTER 2024-05-01 09:16 | Outpatient (AMB) | payer OTHER, SELFPAY ==
--- NOTE | 2024-05-01 09:34 | A.OFFVIS_ITS ---
Intake Visit Reasons: OV-Right knee Inj Requested Intake Note: Seema is a 63 year old female who presents today for a follow up of her right knee OA, last euflexxa gel injection was on 05/08/22. Patient reports gel injections gave her relief for a year and she would like to repeat. She mentions that she would like to get a cortisone injection today. Allergies No Known Allergies [No Known Allergies*] Allergy (Verified 05/01/24 09:36) HPI HPI OV-Right knee Inj Requested: Details: Seema is a 63 year old female who presents today for a follow up of her right knee OA, last euflexxa gel injection was on 05/08/22. Patient reports gel injections gave her relief for a year and she would like to repeat. She mentions that she would like to get a cortisone injection today. [facility] Medical History PONV (postoperative nausea and vomiting) Environmental allergies Seasonal allergies Cervical spondylosis with radiculopathy Osteopenia of left femoral neck GERD (gastroesophageal reflux disease) Family history of thyroid disease in mother Paresthesias Family history of von Willebrand disease Polyarthralgia Impaired fasting glucose Mixed dyslipidemia Allergic rhinitis Odynophagia Postlaminectomy syndrome Chronic fatigue Family history of thyroid disease Spondylosis of cervical spine Fibromyalgia COVID-19 vaccine series completed History of postoperative nausea and vomiting Asthma Increased BMI History of shingles Postmenopause Family history of ankylosing spondylitis Sacroiliitis Lumbar back pain with radiculopathy affecting lower extremity Surgical History Hx of arthroscopic knee surgery S/P insertion of spinal cord stimulator History of microdiscectomy History of breast mammoplasty History of knee surgery History of total abdominal hysterectomy and bilateral salpingo-oophorectomy Family History Father Arthritis COPD (chronic obstructive pulmonary disease) Afib High cholesterol CVD (cardiovascular disease) Mother Arthritis High cholesterol Graves disease Brother Arthritis Sister Sjogrens syndrome Mental health disorder Maternal Grandmother Breast cancer Myoclonus Rheumatoid arthritis PTSD (post-traumatic stress disorder) Sister Lyme disease Fibromyalgia Graves disease Son No problems noted. Daughter No problems noted. Maternal Aunt Mental health disorder Social History Household Members: Spouse Housing: House Are you a primary tire care manager to a significant other at home: Yes (mother, will have care by another family member in th post-op period) Do you presently have visiting nurse or other home services: No Alcohol intake: never Comment: aware of trip hazard Patient Tobacco Use Status: Former Tobacco user Tobacco use type: Cigarette e-Cigarette/Vaping Use: Never Used Second Hand Smoke Exposure: No Advance Directives Date on File: 02/26/20 service: No Current occupational status: employed Cognitive needs: No Hearing needs: No Vision needs: No Review of Systems Const All systems reviewed & are unremarkable except as noted in HPI and below Physical Exam Const General: cooperative and no acute distress Orientation/consciousness: patient oriented x3 Resp Effort & Inspection: normal respiratory effort and able to speak in complete sentences Cardio Peripheral pulses: Peripheral pulses 2+ throughout Neuro General: patient oriented x3 Extrem Other: Right knee: Normal to inspection. No ecchymosis, erythema, edema or drainage. Prior incision sites is well approximated and healed. Patient is lacking about 15? of extension. She is able to achieve about 110? of flexion. NVI. Psych Mental Status: mental status grossly normal Office Procedures AMB Joint Injection/Aspiration Joint Injection/Aspiration Primary Site: right knee Prep: site was prepped using aseptic technique, ethochloride spray was applied and injection warnings given Injected: 80 mg of, DepoMedrol and with 8 mL of (2% plain lidocaine) Approach Used: anterolateral Procedure: The patient tolerated the procedure well, but had some pain with the injection and there was some relief with the local anesthesia Coding 46635 - Large joint Procedure code (CPT) selection complete Assessment & Plan Assessment & Plan (1) Osteoarthritis of right knee: Code(s): M17.11 - Unilateral primary osteoarthritis, right knee Category: Medical Plan The patient was offered a cortisone injection in the right knee with 80 mg of DepoMedrol. The patient was explained the risks, benefits, and alternatives to receiving this injection. After receiving consent for the injection, the patient had the procedure done while in the office today. The patient tolerated the pro cedure well with no complications. Patient would also like to move forward with rescheduling gel injections. We will petition the insurance company and the patient will follow up after gel injection approval, sooner if needed. X-rays were obtained in the office today of the right knee and reviewed by me which reveal osteoarthritis. Orders: Orders XR knee RT 3V Today M25.569 - Pain in unspecified knee XR knee LT 1V Today M25.569 - Pain in unspecified knee Coding Level of Care Code Est Pt Level 3 (43658) Diagnoses Osteoarthritis of right knee M17.11 CPT Codes Coding - 74806 Large joint: 08891 - Large joint ([id number])
--- OUTSIDE RECORDS SUMMARY | 2024-05-01 10:05 | XMS_ITS | Data Portability ---
Author Organization [facility] [address] Address [address] [place] [address] Assessment No assessment recorded. 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 Procedure [...] Diagnosis/Indication Diagnosis SNOMED-CT Code Diagnosis ICD10 Code Diagnosis Note [id number] [address] [address] 10/19/2018 09:28:52 10/19/2018 10:06:31 [id number] Chun Griffiths NP [address] [address] 05/28/2022 08:10:49 05/28/2022 09:14:45 History and physical examination, occupation [id number] Z02.1 Health Concerns Section Related Observation LastModified by Organization Detai ls LastModified Time None Recorded Concern Status LastModified by Organization Details LastModified Time None Recorded Advance Directives Directive None Recorded Payers Encounter Date Sequence Insurance Name Policy Number Policy Clemons Covered Member ID Clemons Member ID Guarantor Name 10/19/2018 1 UMR [id number] Seema Hutton [id number] Seema Hutton 05/28/2022 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
== END 2024-05-01 09:56 | disposition home or self-care (01) ==
PROVIDERS: Visit Provider Physician Assistant
DX: M17.11 Unilateral primary osteoarthritis, right knee (principal)
CPT/HCPCS: 20610; 99213

== ENCOUNTER → 2024-05-01 09:18 | Outpatient (BNV) | payer OTHER, SELFPAY | PROVIDERS: Visit Provider Radiology Diagnostic Radiology | DX: M17.0 Bilateral primary osteoarthritis of knee (principal) | CPT/HCPCS: 73560 ==

== ENCOUNTER 2024-05-18 09:55 | Outpatient (AMB) | payer OTHER, SELFPAY ==
[2024-05-18 10:06] VITALS: BP 165/86; PULSE 95; BMI 40.0
--- NOTE | 2024-05-18 10:06 | MHC.OFFVIS ---
Vital Signs 05/18/24 10:06 Height 5 ft 5 in Weight 240 lb 8 oz BMI 40.0 BP 165/86 H Blood Pressure Location Rt brachial Position Sitting Pulse 95 Pulse Source Pulse Oximeter Intake Visit Reasons: SCS not working correctly - Pt is contact with rep Intake Note: Pain today 510 Easter Bunny Required: No Accompanied by: Self / Same As Patient Allergies No Known Allergies [No Known Allergies*] Allergy (Verified 05/18/24 10:09) HPI Comments Details: Seema is very nice and very pleasant 60 years old female employee of [employer]. She came back to my office for the consult as well as to work with transportation services representative on her spinal cord stimulator. This patient is suffering from widespread arthritis. She reports today pain in the lower back is not covered by her spinal cord stimulator. She also reports pain from the left side of the back radiating to the left the left groin. It is very common situation when sacroiliitis and hip joint arthritis come together. Lateral rotation of the hip aggravates the pain in the groin. At least this part of her pain syndrome is related to the left hip joint. I offered her left hip steroid injection however patient refused. She stated that she received bilateral knee steroid injections 1 week ago. We could have performed it in 3 weeks from now, however I understand why she is hesitant to go for yet another steroid injection. She is under care of Dr. Laura with rheumatological condition. Jaime de la rosa [employer] transportation services representative is working with the patient today trying to adjust her stimulation and helps her pain with current device. In the past she received SI joint innervation stimulation as well as Nevro SCS. Prior: ? She had sacroiliac joint innervation stimulation stim wave implanted for sacroiliac joint pain.? She reports that the pain in the left side which is being instigated by torso twisting and forward bending is very well controlled by stimulation.? However she reports that the pain in the lower back with radiation into the left lower extremity all the way down to her toes started to come back.? That pain was present in her before Dr. Atwood toook her to the surgery and performed micro diskectomy and minimally invasive foraminotomy.? She went for prolonged course of the recovery during which Dr. Atwood was prescribing her large doses of the steroid medications.? She reports that her mobility was very limited.? Nevertheless she recovered and got better.? However now the pain is back and she wants this pain to be evaluated with comparison with previous MRI.? She had an MRI in the past which demonstrated spinal stenosis.? Therefore the axial pain is unlikely to be help by a peripheral nerve stimulator.? I performed caudal epidural steroid injection with catheter on her twice 1st time she reported about 60% pain relief for 3 weeks. the pain was relieved only 30% a and no longer than 1 wee [facility] Medical History PONV (postoperative nausea and vomiting) Environmental allergies Seasonal allergies Cervical spondylosis with radiculopathy Osteopenia of left femoral neck GERD (gastroesophageal reflux disease) Family history of thyroid disease in mother Paresthesias Family history of von Willebrand disease Polyarthralgia Impaired fasting glucose Mixed dyslipidemia Allergic rhinitis Odynophagia Postlaminectomy syndrome Chronic fatigue Family history of thyroid disease Spondylosis of cervical spine Fibromyalgia COVID-19 vaccine series completed History of postoperative nausea and vomiting Asthma Increased BMI History of shingles Postmenopause Family history of ankylosing spondylitis Sacroiliitis Lumbar back pain with radiculopathy affecting lower extremity Surgical History Hx of arthroscopic knee surgery S/P insertion of spinal cord stimulator History of microdiscectomy History of breast mammoplasty History of knee surgery History of total abdominal hysterectomy and bilateral salpingo-oophorectomy Family History Father Arthritis COPD (chronic obstructive pulmonary disease) Afib High cholesterol CVD (cardiovascular disease) Mother Arthritis High cholesterol Graves disease Brother Arthritis Sister Sjogrens syndrome Mental health disorder Maternal Grandmother Breast cancer Myoclonus Rheumatoid arthritis PTSD (post-traumatic stress disorder) Sister Lyme disease Fibromyalgia Graves disease Son No problems noted. Daughter No problems noted. Maternal Aunt Mental health disorder Social History Household Members: Spouse Housing: House Are you a primary certified social workers in health care to a significant other at home: Yes (mother, will have care by another family member in th post-op period) Do you presently have visiting nurse or other home services: No Alcohol intake: never Comment: aware of trip hazard Patient Tobacco Use Status: Former Tobacco user Tobacco use type: Cigarette e-Cigarette/Vaping Use: Never Used Second Hand Smoke Exposure: No Advance Directives Date on File: 02/26/20 service: No Current occupational status: employed Cognitive needs: No Hearing needs: No Vision needs: No Review of Systems Const All systems reviewed & are unremarkable except as noted in HPI and below ENT Reports Normal hearing present Neuro Reports Normal hearing present and Denies Abnormal speech present Physical Exam Vital Signs: Last Vital Signs Pulse 95 05/18/24 10:06 BP 165/86 H 05/18/24 10:06 BMI result Body Mass Index 40.0 Const General: healthy appearing, comfortable, no acute distress and well developed; No diaphoretic Nutritional Appearance: obese Orientation/consciousness: patient oriented x3 Chest Chest palpation & inspection: normal inspection of the chest Resp Effort & Inspection: normal respiratory effort, able to speak in complete sentences, normal respiratory pattern, no audible wheezes and no cough Cardio Jugular venous distension: no JVD Neuro General: patient oriented x3 Cranial nerves: Yes Normal hearing present Speech: No Abnormal speech present Extrem Other: Lateral rotation of the left hip causes discomfort in the groin. Assessment & Plan Assessment & Plan (1) Sacroiliitis: Code(s): M46.1 - Sacroiliitis, not elsewhere classified Category: Medical (2) Postlaminectomy syndrome: Code(s): M96.1 - Postlaminectomy syndrome, not elsewhere classified Category: Medical (3) Spondylosis of cervical spine: Code(s): M47.812 - Spondylosis without myelopathy or radiculopathy, cervical region Category: Medical Plan Status post insertion of [employer] spinal cord stimulator, status post revision of Parko spinal cord stimulator. For connection of spinal cord stimulator. Difficult positioning and epidural needle during the spinal cord stimulator implantation required 2 incisions in the lumbar spine. Status post PNS stim wave stimulation of the bilateral sacroiliac joint innervation lines however she reported pleasant substantial pain relief. With results of Nevro trial. Currently patient reports intractable severe pain in the lower back. She stated spinal cord stimulator does not work for her Jaime the transportation services representative of the spinal cord stimulator [facility] [facility] was working today with the patient trying to adjust the stimulation to bring it to the patient's satisfaction. On physical exam there is signs of left hip arthritis. I offered the patient left hip steroid injection however she refused, she stated that she recently received knee steroid injection in orthopedic surgery office. I offered her injection to be done in 1 month interval however she did not want to take it into consideration. I told her to give us a call and schedule an injection if she decides to go for the injection. Hopefully the spinal cord stimulator action could be brought today to the level which could at least somehow alleviate patient's pain. No new appointment at this time patient will give us a call if she decides to go for the procedures. She was seen by Neurosurgery Dr. Knutson, no surgery was offered to the patient, small stable spondylolisthesis was found in the back and significant arthritis in the back. Under care of Dr. Laura with widespread pain arthritis. However no inflammatory markers were discovered. Dr. Laura thinks that the patient is suffering from fibromyalgia. Patient Instructions: I here by testify that I spent 32 minutes in conversation with this patient as well as evaluating her diagnostic studies and prior records as well as planning her care and organizing this note. Coding Level of Care Code Est Pt Level 4 (53188) Diagnoses Sacroiliitis M46.1 Postlaminectomy syndrome M96.1 Spondylosis of cervical spine M47.812
--- OUTSIDE RECORDS SUMMARY | 2024-05-18 10:26 | XMS_ITS | Data Portability ---
Author Organization [facility] [employer] [address] Address [address] [place] [address] Assessment No assessment recorded. Plan of Treatment [...] Out Template NON DOT completed Hayley SILVESTRE [employer] 05/28/2022 08:28:09 Imaging Results None recorded. Procedure [...] SNOMED-CT Code Diagnosis ICD10 Code Diagnosis Note [id number] [address] [address] 10/19/2018 09:28:52 10/19/2018 10:06:31 [id number] Chun Griffiths NP [address] [address] 05/28/2022 08:10:49 05/28/2022 09:14:45 History and physical examination, occupation [id number] Z02.1 Health Concerns Section Related Observation LastModified by Organization Detai ls LastModified Time None Recorded Concern Status LastModified by Organization Details LastModified Time None Recorded Advance Directives Directive None Recorded Payers Encounter Date Sequence Insurance Name Policy Number Policy Clemons Covered Member ID Clemons Member ID Guarantor Name 10/19/2018 1 UMR [id number] Seema Hutton [id number] Seema Hutton 05/28/2022 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
== END 2024-05-18 10:24 | disposition home or self-care (01) ==
PROVIDERS: Visit Provider Anesthesiology
DX: M46.1 Sacroiliitis, not elsewhere classified (principal); M96.1 Postlaminectomy syndrome, not elsewhere classified; M47.812 Spondylosis without myelopathy or radiculopathy, cervical region
CPT/HCPCS: 99214

== ENCOUNTER → 2024-05-18 09:55 | Outpatient (BNVA) | payer OTHER, SELFPAY | PROVIDERS: Visit Provider Anesthesiology ==

== ENCOUNTER 2024-07-03 08:50 | Outpatient (AMB) | payer OTHER, SELFPAY ==
--- NOTE | 2024-07-03 08:57 | MHC.OFFVIS ---
Vital Signs 07/03/24 08:59 Height 5 ft 5 in Weight 240 lb BMI 39.9 Intake Visit Reasons: right knee Durolane Gel Injection Intake Note: Seema is a 63 year old female who presents today for a durolane gel injection for her right knee. Allergies No Known Allergies [No Known Allergies*] Allergy (Verified 07/03/24 08:58) HPI HPI right knee Durolane Gel Injection: Details: Ms. Meeks is a 63-year-old female who presents to the office today for right knee osteoarthritis for Durolane gel injection. [facility] Medical History PONV (postoperative nausea and vomiting) Environmental allergies Seasonal allergies Cervical spondylosis with radiculopathy Osteopenia of left femoral neck GERD (gastroesophageal reflux disease) Family history of thyroid disease in mother Paresthesias Family history of von Willebrand disease Polyarthralgia Impaired fasting glucose Mixed dyslipidemia Allergic rhinitis Odynophagia Postlaminectomy syndrome Chronic fatigue Family history of thyroid disease Spondylosis of cervical spine Fibromyalgia COVID-19 vaccine series completed History of postoperative nausea and vomiting Asthma Increased BMI History of shingles Postmenopause Family history of ankylosing spondylitis Sacroiliitis Lumbar back pain with radiculopathy affecting lower extremity Surgical History Hx of arthroscopic knee surgery S/P insertion of spinal cord stimulator History of microdiscectomy History of breast mammoplasty History of knee surgery History of total abdominal hysterectomy and bilateral salpingo-oophorectomy Family History Father Arthritis COPD (chronic obstructive pulmonary disease) Afib High cholesterol CVD (cardiovascular disease) Mother Arthritis High cholesterol Graves disease Brother Arthritis Sister Sjogrens syndrome Mental health disorder Maternal Grandmother Breast cancer Myoclonus Rheumatoid arthritis PTSD (post-traumatic stress disorder) Sister Lyme disease Fibromyalgia Graves disease Son No problems noted. Daughter No problems noted. Maternal Aunt Mental health disorder Social History Household Members: Spouse Housing: House Are you a primary geriatric personal care aide to a significant other at home: Yes (mother, will have care by another family member in th post-op period) Do you presently have visiting nurse or other home services: No Alcohol intake: never Comment: aware of trip hazard Patient Tobacco Use Status: Former Tobacco user Tobacco use type: Cigarette e-Cigarette/Vaping Use: Never Used Second Hand Smoke Exposure: No Advance Directives Date on File: 02/26/20 service: No Current occupational status: employed Cognitive needs: No Hearing needs: No Vision needs: No Review of Systems Const All systems reviewed & are unremarkable except as noted in HPI and below Physical Exam Vital Signs: BMI result Body Mass Index 39.9 Const General: cooperative and no acute distress Orientation/consciousness: patient oriented x3 Resp Effort & Inspection: normal respiratory effort and able to speak in complete sentences Cardio Peripheral pulses: Peripheral pulses 2+ throughout Neuro General: patient oriented x3 Extrem Other: Right knee: Normal to inspection. No ecchymosis, erythema, edema or drainage. Prior incision sites is well approximated and healed. Patient is lacking about 15? of extension. She is able to achieve about 110? of flexion. NVI. Psych Mental Status: mental status grossly normal Office Procedures AMB Joint Injection/Aspiration Joint Injection/Aspiration Primary Site: right knee Prep: site was prepped using aseptic technique, ethochloride spray was applied and injection warnings given Injected: in the joint (Durolane ) Approach Used: anterolateral Procedure: The patient tolerated the procedure well, but had some pain with the injection and there was some relief with the local anesthesia Coding 83595 - Large joint Procedure code (CPT) selection complete Assessment & Plan Assessment & Plan (1) Osteoarthritis of right knee: Code(s): M17.11 - Unilateral primary osteoarthritis, right knee Category: Medical Plan The patient was offered a Durolane injection in the right knee. The patient was explained the risks, benefits, and alternatives to receiving this injection. After receiving consent for the injection, the patient had the procedure done while in the office today. The patient tolerated the procedure well with no complications. Follow-up will be p.r.n., or sooner if needed Coding Level of Care Code Procedure Only Diagnoses Osteoarthritis of right knee M17.11 CPT Codes Coding - 21225 Large joint: 00889 - Large joint ([id number])
[2024-07-03 08:59] VITALS: BMI 39.9
--- OUTSIDE RECORDS SUMMARY | 2024-07-03 09:14 | XMS_ITS | Data Portability ---
Author Organization [facility] [address] Address [address] [place] [address] Assessment No assessment recorded. Plan of Treatment [...] Out Template NON DOT completed Hayley SILVESTRE [employer] 05/28/2022 08:28:09 Imaging Results None recorded. Procedure [...] SNOMED-CT Code Diagnosis ICD10 Code Diagnosis Note [id number] [address] [address] 10/19/2018 09:28:52 10/19/2018 10:06:31 [id number] Chun Griffiths NP [address] [address] 05/28/2022 08:10:49 05/28/2022 09:14:45 History and physical examination, occupation [id number] Z02.1 Health Concerns Section Related Observation LastModified by Organization Detai ls LastModified Time None Recorded Concern Status LastModified by Organization Details LastModified Time None Recorded Advance Directives Directive None Recorded Payers Encounter Date Sequence Insurance Name Policy Number Policy Clemons Covered Member ID Clemons Member ID Guarantor Name 10/19/2018 1 UMR [id number] Seema Hutton [id number] Seema Hutton 05/28/2022 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
--- OUTSIDE RECORDS SUMMARY | 2024-07-03 09:14 | XMS_ITS | Clinical Summary ---
Author Organization [facility] Address [address] [place] [address] Care Team Providers Care Ship Runner Name Role Phone Mariluz Lopez NP Primary Care Provide r Surgical History Surgery Date Site/Laterality Comments OTHER SURGICAL HISTORY PROCEDURE: MT TOTAL ABDOMINAL HYSTERECT W/WO RMVL TUBE OVARY; COMMENT: has cervix Medical History Medical History Date Comments Lyme disease DX:Lyme disease; COMMENT: 2007 Shingles DX:Shingles Dyslipidemia DX:Dyslipidemia Spinal stenosis DX:Spinal stenos is Family History Medical History Relation Name Comments Arthritis Father Other: dyslipidemia Father Arthritis Mother Other: dyslipidemia Mother Relation Name Status Comments Brother Alive Father Alive Maternal Grandmother Alive Mother Alive Sister 1 Alive Sister 2 Alive Social History Tobacco Use Types Packs/Day Years Used Date Smoking Tobacco: Never Alcohol Use Standard Drinks/Week Comments Not Asked 0 (1 standard drink = 0.6 oz pur e alcohol) Comments Unknown Sex and Gender Information Value Date Recorded Sex Assigned at Not on file Legal Sex Female 2:02 AM EST Gender Identity Not on file Sexual Orientation Not on file Obstetrics History Plan of Treatment Upcoming Encounters Date Type Department Care Team (Late st Contact Info) Description 07/10/2024 10:30 AM EDT Office Visit Neurosurgery [facility] [address] [phone] Montserrat Wu MD [address] [place] [address] Health Maintenance Due Date Last Done Comments Breast Cancer Screening 1960 DTaP,Tdap,and Td Vaccines (1 - Tdap) 09/01/1979 Cervical Cancer Screening: P ap Smear 1981 Pneumococcal Vaccine: 50+ Ye ars (1 of 1 - PCV) 2010 Zoster Vaccines (1 of 2) 2010 COVID-19 Vaccine (1 - 2023-2 5 season) 2023 Influenza Vaccine (#1) 2023 12/29/2012 Colorectal Cancer Screening: Colonoscopy 07/01/2024 Depression Screening 07/01/2024 HIV Screening 07/01/2024 Hepatitis C Screening 07/01/2024 Social Influencers of Health Screening 07/01/2024 RSV Immunization Patients 60 + Years Old (1 - 1-dose 75+ series) 09/01/2035 HIB Vaccines Aged Out No longer eligi ble based on patient's age to complete this topic HPV Vaccines Aged Out No longer eligi ble based on patient's age to complete this topic Hepatitis A Vaccines Aged Out No long er eligible based on patient's age to complete this topic Hepatitis B Vaccines Aged Out No long er eligible based on patient's age to complete this topic IPV Vaccines Aged Out No longer eligi ble based on patient's age to complete this topic MMR Vaccines Aged Out No longer eligi ble based on patient's age to complete this topic Meningococcal ACWY Vaccine Aged Out N o longer eligible based on patient's age to complete this topic Meningococcal B Vacine Aged Out No lo nger eligible based on patient's age to complete this topic Pneumococcal Vaccine: Pediat rics (0 to 5 Years) and At-Risk Patients (6 to 64 Years) Aged Out No longer eligi ble based on patient's age to complete this topic RSV Immunization Patients Un abiola 20 months Aged Out No longer eligible b ased on patient's age to complete this topic Varicella Vaccines Aged Out No longer eligible based on patient's age to complete this topic Insurance [facility] Care Teams Ship Runner Relationship Specialty Start Date End Date Mariluz Lopez NP [address] [place] [id number] PCP - General Family Medicine 06/30/24
== END 2024-07-03 09:08 | disposition home or self-care (01) ==
LOC: HO.HOS 08:51
PROVIDERS: Visit Provider Physician Assistant
DX: M17.11 Unilateral primary osteoarthritis, right knee (principal)
CPT/HCPCS: 20610

== ENCOUNTER → 2024-07-03 08:50 | Outpatient (BNVA) | payer OTHER, SELFPAY | PROVIDERS: Visit Provider Physician Assistant | DX: M17.11 Unilateral primary osteoarthritis, right knee (principal) | CPT/HCPCS: 20610; J7318 ==

== ENCOUNTER 2024-07-24 10:09 | Outpatient (AMB) | payer OTHER, SELFPAY ==
--- NOTE | 2024-07-24 10:23 | A.OFFVIS_ITS ---
Vital Signs 07/24/24 10:34 Height 5 ft 5 in Weight 240 lb BMI 39.9 Intake Visit Reasons: OV - right knee OA Intake Note: Seema is a 63 year old female who presents today for a follow up of her right knee OA, last Durolane gel injection was on 07/03/24. Patient reports that her pain has gotten worse after she got her gel injection and she is concerned on why her pain is getting this bad. Allergies No Known Allergies [No Known Allergies*] Allergy (Verified 07/24/24 10:34) HPI HPI OV - right knee OA: Details: Ms. Hutton is a 63 year old female who presents today for a follow up of her right knee OA, last Durolane gel injection was on 07/03/24. Patient reports that her pain has gotten worse after she got her gel injection. PFSH Medical History PONV (postoperative nausea and vomiting) Environmental allergies Seasonal allergies Cervical spondylosis with radiculopathy Osteopenia of left femoral neck GERD (gastroesophageal reflux disease) Family history of thyroid disease in mother Paresthesias Family history of von Willebrand disease Polyarthralgia Impaired fasting glucose Mixed dyslipidemia Allergic rhinitis Odynophagia Postlaminectomy syndrome Chronic fatigue Family history of thyroid disease Spondylosis of cervical spine Fibromyalgia COVID-19 vaccine series completed History of postoperative nausea and vomiting Asthma Increased BMI History of shingles Postmenopause Family history of ankylosing spondylitis Sacroiliitis Lumbar back pain with radiculopathy affecting lower extremity Surgical History Hx of arthroscopic knee surgery S/P insertion of spinal cord stimulator History of microdiscectomy History of breast mammoplasty History of knee surgery History of total abdominal hysterectomy and bilateral salpingo-oophorectomy Family History Father Arthritis COPD (chronic obstructive pulmonary disease) Afib High cholesterol CVD (cardiovascular disease) Mother Arthritis High cholesterol Graves disease Brother Arthritis Sister Sjogrens syndrome Mental health disorder Maternal Grandmother Breast cancer Myoclonus Rheumatoid arthritis PTSD (post-traumatic stress disorder) Sister Lyme disease Fibromyalgia Graves disease Son No problems noted. Daughter No problems noted. Maternal Aunt Mental health disorder Social History Household Members: Spouse Housing: House Are you a primary animal care provider to a significant other at home: Yes (mother, will have care by another family member in th post-op period) Do you presently have visiting nurse or other home services: No Alcohol intake: never Comment: aware of trip hazard Patient Tobacco Use Status: Former Tobacco user Tobacco use type: Cigarette e-Cigarette/Vaping Use: Never Used Second Hand Smoke Exposure: No Advance Directives Date on File: 02/26/20 service: No Current occupational status: employed Cognitive needs: No Hearing needs: No Vision needs: No Review of Systems Const All systems reviewed & are unremarkable except as noted in HPI and below Physical Exam Vital Signs: BMI result Body Mass Index 39.9 Const General: cooperative, healthy appearing and no acute distress Orientation/consciousness: patient oriented x3 Resp Effort & Inspection: normal respiratory effort and able to speak in complete sentences Cardio Rate: regular rate Peripheral pulses: Peripheral pulses 2+ throughout Skin Lesions: no lesions Rashes: no rashes Neuro General: patient oriented x3 Extrem Other: Right knee: Normal to inspection. No ecchymosis, erythema, edema or drainage. Prior incision sites is well approximated and healed. Patient is lacking about 15? of extension. She is able to achieve about 110? of flexion. NVI. Psych Mental Status: mental status grossly normal Assessment & Plan Assessment & Plan (1) Osteoarthritis of right knee: Code(s): M17.11 - Unilateral primary osteoarthritis, right knee Category: Medical Plan While in the office today we discussed that after the gel injection she is likely having an arthritic flare up. I did offer the patient a cortisone injection as her last cortisone injection was on 05/01/2024. I did discuss that this may not offer her complete relief and could make her pain worse if she has an acute arthritic flare-up. Therefore, we have decided to defer at this time. I did send a topical pain cream to the mail away pharmacy and the patient will follow-up p.r.n., sooner if needed. Coding Level of Care Code Est Pt Level 3 (46415) Diagnoses Osteoarthritis of right knee M17.11
[2024-07-24 10:34] VITALS: BMI 39.9
--- OUTSIDE RECORDS SUMMARY | 2024-07-24 10:51 | XMS_ITS | Clinical Summary ---
Author Organization [address] [facility] Address [address] [place] [address] Phone Care Team Providers Care Staff Design Engineer Name Role Phone Mariluz Lopez NP Primary Care Provide r Allergies No known active allergies Medications DULoxetine (CYMBALTA) [address] capsule 06/05/2024 Activ e cetirizine (ZyrTEC) 10 mg tablet 06/05/2024 Active albuterol HFA (PROAIR HFA ; PROVENTIL HFA ; VENTOLIN HFA) 90 mcg/actuation inhaler 06/05/2024 Active famotidine (PEPCID) 40 mg tablet 06/05/2024 Active montelukast (SINGULAIR) 10 mg tablet 06/05/2024 Active SUMAtriptan (IMITREX) 100 mg tablet 06/05/2024 Active celecoxib (CeleBREX) 200 mg capsule Take 1 capsule (200 mg total) by mouth 2 (two) times a day. Active Active Problems Problem Noted Date Diagnosed Date Spinal stenosis of lumbar region 07/09/2024 Assessment & Plan (07/09/2024 4:27 PM EDT): I reviewed the CT myelogram in detail with Ms. Frank and reassured her that documented L3-4 stenosis is mild and though it may efface the thecal sac, there is no true nerve root compression and I do not feel she has cauda equina syndrome. She will continue working with [facility] to make adjustments to the newer spinal cord stimulator which had been working pretty well for her. I think she would also benefit from an aquatic/swimming program for core strengthening which she is agreeable. Encounters Date Type Department Care Team Description 07/09/2024 2:30 PM EDT Office Visit [facility] [address] [place] [address] Montserrat Wu MD Spinal stenosis of lumbar region, unspecified whether neurogenic claudication present (Primary Dx) from Last 3 Months Surgical History Surgery Date Site/Laterality Comments OTHER SURGICAL HISTORY PROCEDURE: IA TOTAL ABDOMINAL HYSTERECT W/WO RMVL TUBE OVARY; COMMENT: has cervix BREAST REDUCTION Bilateral KNEE SURGERY Right repair CERVICAL FUSION SPINAL CORD STIMULATOR IMPLANT Medical History Medical History Date Comments Lyme disease DX:Lyme disease; COMMENT: 2007 Shingles DX:Shingles Dyslipidemia DX:Dyslipidemia Spinal stenosis DX:Spinal stenos is Hyperlipidemia Fibromyalgia Family History Medical History Relation Name Comments [...] Sexual Orientation Not on file Obstetrics History Last Filed Vital Signs Vital Sign Reading Time Taken Comments Blood Pressure - - Pulse - - Temperature - - Respiratory Rate - - Oxygen Saturation - - Inhaled Oxygen Concentration - - Weight 109 kg (240 lb) 07/09/2024 2:36 PM EDT Height 165.1 cm (5' 5 ) 07/09/2024 2:36 PM EDT Body Mass Index 39.94 07/09/2024 2:36 PM EDT Plan of Treatment Health Maintenance Due Date Last Done Comments Breast Cancer Screening 1960 Cervical Cancer Screening: Pap Smear 1981 Pneumococcal Vaccine: 50+ Years (2 of 2 - PCV) 10/13/2001 10/13/2000 Pneumococcal Vaccine: Pediatrics (0 to 5 Years) and At-Risk Patients (6 to 64 Years) (2 of 2 - PCV) 10/13/2001 10/13/2000 Hepatitis B Vaccines (3 of 3 - 19+ 3-dose series) 01/16/2016 11/21/2015, 12/23/2006 RSV Immunization Adult Patients (1 - Risk 60-74 years 1-dose series) 2020 Zoster Vaccines (2 of 2) 02/23/2023 12/29/2022 COVID-19 Vaccine (3 - 2023- season) 2023 03/11/2021, 07/20/2020 Cholesterol Screening (Lipid Panel) 07/01/2024 Colorectal Cancer Screening: Colonoscopy 07/01/2024 Depression Screening 07/01/2024 HIV Screening 07/01/2024 Hepatitis C Screening 07/01/2024 Social Influencers of Health Screening 07/01/2024 DTaP,Tdap,and Td Vaccines (4 - Td or Tdap) 02/08/2026 02/09/2016, 12/01/2010, 04/15/2005 Influenza Vaccine Completed 01/10/2024, , 01/31/2022, Additional history exists HIB Vaccines Aged Out No longer eligi [...] age to complete this topic Meningococcal B Vaccine Aged Out No l onger eligible based on patient's age to complete this topic RSV Immunization Patients Under 20 months Aged Out No longer eligible based on patient's age to complete this topic Varicella Vaccines Aged Out No longer eligible based on patient's age to complete this topic Insurance [facility] Care Teams Staff Design Engineer Relationship Specialty Start Date End Date Mariluz Lopez NP [address] [place] [phone] PCP - General Family Medicine 06/30/24
--- OUTSIDE RECORDS SUMMARY | 2024-07-24 10:51 | XMS_ITS | Data Portability ---
Author Organization [email or web address] [id number] Address [address] [place] [address] Assessment No assessment recorded. Plan of Treatment [...] Out Template NON DOT completed Hayley SILVESTRE [employer] 05/28/2022 08:28:09 Imaging Results None recorded. Procedure [...] SNOMED-CT Code Diagnosis ICD10 Code Diagnosis Note [id number] [phone] 10/19/2018 09:28:52 10/19/2018 10:06:31 [id number] Chun Griffiths NP [id number] [phone] 05/28/2022 08:10:49 05/28/2022 09:14:45 History and physical examination, occupation [id number] Z02.1 Health Concerns Section Related Observation LastModified by Organization Detai ls LastModified Time None Recorded Concern Status LastModified by Organization Details LastModified Time None Recorded Advance Directives Directive None Recorded Payers Encounter Date Sequence Insurance Name Policy Number Policy Clemons Covered Member ID Clemons Member ID Guarantor Name 10/19/2018 1 UMR [id number] Seema Hutton [id number] Seema Hutton 05/28/2022 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
== END 2024-07-24 10:42 | disposition home or self-care (01) ==
LOC: HO.HOS 10:09
PROVIDERS: Visit Provider Physician Assistant
DX: M17.11 Unilateral primary osteoarthritis, right knee (principal)
CPT/HCPCS: 99213

== ENCOUNTER 2024-09-18 12:54 | Emergency (ER) | payer OTHER, SELFPAY ==
[2024-09-18] VITALS (7 sets, daily range): BP systolic 132–201; BP diastolic 52–103; PULSE 74–102; RESP 15–20; TEMP 36.3–37; O2SAT 96–99; BMI 40.8
--- NOTE | ~2024-09-18 | CT_ITS ---
CLINICAL HISTORY: LLQ abd pain CT abdomen and pelvis with contrast Comparison: None Findings: No consolidation or effusion. The gallbladder is unremarkable. No biliary ductal dilatation. Significant low-attenuation of the liver suggestive of steatosis with areas of focal sparing. The spleen, pancreas, adrenal glands and right kidney are unremarkable. A 3 mm stone is demonstrated in mid to distal aspect of the left ureter resulting in slight left hydronephrosis and hydroureter and mild left perinephric stranding. Subcentimeter left renal cortical hypodense lesion which is too small to be fully characterized. No bowel obstruction, pneumoperitoneum, or pneumatosis. The appendix is unremarkable. Uterus is absent. Urinary bladder is unremarkable. No free fluid. No loculated fluid collection. Bilateral small fat containing inguinal hernias No acute fracture. Diffuse demineralization. Facet arthropathy lower lumbar spine. Implanted sacral stimulator. IMPRESSION: 1. 3 mm stone in mid to distal aspect of the left ureter with minimal left hydronephrosis and hydroureter and perinephric stranding. 2. Additional nonacute findings as described. This document has been electronically signed by: Dariela Starr MD on 09/18/2024 17:57:02
--- NOTE | 2024-09-18 13:03 | ED.GENADULT ---
HPI - General Adult General Chief complaint: Abdominal Pain Stated complaint: LT SIDED ABD PAIN PER EMS Time Seen by Provider: 09/18/24 12:57 History of Present Illness ED Provider: Dr. Barr HPI narrative: 64 y/o F patient; PMH GERD, HLD, fibromyalgia, asthma; presents from home via EMS with report of significant LLQ abdominal pain. Associated with nausea. Denies associated: vomiting, fever or chills, diarrhea, cough/congestion, chest pain, SOB, syncope, urinary symptoms. Hx hysterectomy with bilateral oophrectomy. EMS provided Fentanyl 120mcg in route. Related Data Home Medications ?Medication ?Instructions ?Recorded ?Confirmed ginkgo biloba 40 mg tablet 40 mg PO DAILY 08/24/22 03/25/24 omega-3 acid ethyl esters 1 gram 1 cap PO BID 11/22/23 03/25/24 capsule (Lovaza) celecoxib 200 mg capsule 200 mg PO DAILY for pain 03/25/24 03/25/24 Previous Rx's ?Medication ?Instructions ?Recorded cholecalciferol (vitamin D3) 50 50 mcg PO DAILY #90 caps 07/09/22 mcg (2,000 unit) capsule sumatriptan succinate 100 mg tablet 100 mg PO .COMPLEX PRN Headache 10 07/12/23 days #10 tabs oxycodone 5 mg tablet 5 mg PO Q4H PRN pain #20 tabs 12/05/23 duloxetine 60 mg capsule,delayed 60 mg PO DAILY #90 caps 12/20/23 release montelukast 10 mg tablet 10 mg PO DAILY #90 tabs 12/20/23 loratadine 10 mg tablet 10 mg PO DAILY #90 tabs 01/31/24 famotidine 40 mg tablet 40 mg PO DAILY #90 tabs 04/16/24 diclofenac sodium 1 % topical gel 4 g topical QID #100 grams 07/28/24 (Arthritis Pain (diclofenac)) tamsulosin 0.4 mg capsule (Flomax) 0.4 mg PO DAILY 7 days #7 caps 09/18/24 Allergies Allergy/AdvReac Type Severity Reaction Status Date / Time No Known Allergies Allergy Verified 09/18/24 13:04 [No Known Allergies*] Review of Systems Review of Systems: Yes all other systems are reviewed and are negative PMFSH Past Medical History Attestation statement: The following information was validated with the patient. Source: old records reviewed Medical History PONV (postoperative nausea and vomiting) Environmental allergies Seasonal allergies Cervical spondylosis with radiculopathy Osteopenia of left femoral neck GERD (gastroesophageal reflux disease) Family history of thyroid disease in mother Paresthesias Family history of von Willebrand disease Polyarthralgia Impaired fasting glucose Mixed dyslipidemia Allergic rhinitis Odynophagia Postlaminectomy syndrome Chronic fatigue Family history of thyroid disease Spondylosis of cervical spine Fibromyalgia COVID-19 vaccine series completed History of postoperative nausea and vomiting Asthma Increased BMI History of shingles Postmenopause Family history of ankylosing spondylitis Sacroiliitis Lumbar back pain with radiculopathy affecting lower extremity Surgical History Hx of arthroscopic knee surgery S/P insertion of spinal cord stimulator History of microdiscectomy History of breast mammoplasty History of knee surgery History of total abdominal hysterectomy and bilateral salpingo-oophorectomy Family History Family History Father Arthritis COPD (chronic obstructive pulmonary disease) Afib High cholesterol CVD (cardiovascular disease) Mother Arthritis High cholesterol Graves disease Brother Arthritis Sister Sjogrens syndrome Mental health disorder Maternal Grandmother Breast cancer Myoclonus Rheumatoid arthritis PTSD (post-traumatic stress disorder) Sister Lyme disease Fibromyalgia Graves disease Son No problems noted. Daughter No problems noted. Maternal Aunt Mental health disorder Social History Social History Household Members: Spouse Housing: House Are you a primary child care leader to a significant other at home: Yes (mother, will have care by another family member in th post-op period) Do you presently have visiting nurse or other home services: No Alcohol intake: never Comment: aware of trip hazard Patient Tobacco Use Status: Former Tobacco user Tobacco use type: Cigarette Smoked in Last 30 Days: No e-Cigarette/Vaping Use: Never Used Second Hand Smoke Exposure: No Advance Directives: Yes Advance Directives on File: Yes Advance Directives Date on File: 02/26/20 service: No Current occupational status: employed Cognitive needs: No Hearing needs: No Vision needs: No Physical Exam ED Vital Signs: Vital Signs - 24 hr 09/18/24 13:01 09/18/24 13:21 09/18/24 14:00 Temperature 97.6 F Pulse Rate 75 78 87 Respiratory Rate 20 20 16 Blood Pressure 199/95 H 201/103 H 173/89 H Pulse Oximetry 99 99 96 Oxygen Delivery Method Room Air Room Air Room Air 09/18/24 14:47 09/18/24 16:00 09/18/24 17:45 Temperature 98.6 F 98.6 F 97.3 F Pulse Rate 85 85 74 Respiratory Rate 15 15 16 Blood Pressure 132/52 L 132/52 L 145/62 H Pulse Oximetry 97 97 97 Oxygen Delivery Method Room Air Room Air Room Air BMI result Body Mass Index 40.8 Patient is afebrile and hemodynamically stable. Const General: cooperative Orientation/consciousness: patient oriented x3 HENMT Head: Yes normal to inspection and Yes atraumatic Eyes General: appearance normal, both eyes and all related structures Pupils: Equal, round and reactive pupils present EOM: EOMs intact bilaterally Neck Neck: Yes normal visual inspection, Yes full ROM, Yes supple and No tender Chest Chest palpation & inspection: normal inspection of the chest and normal palpation of entire chest wall Resp Effort & Inspection: normal respiratory effort, able to speak in complete sentences, no cough and no respiratory distress Auscultation: clear to auscultation bilaterally Cardio Rate: regular rate Rhythm: regular rhythm Peripheral pulses: Peripheral pulses 2+ throughout GI Other: + LLQ abdominal tenderness Inspection: Yes normal to inspection Palpation (GI): Soft to palpation, not firm, no guarding and not rigid Percussion: Yes normal to percussion Back/Spine/Pelvis Back: No back tenderness Neuro General: patient oriented x3 Cranial nerves: Yes Equal, round and reactive pupils present Course Course Course Narrative: Patient is afebrile and hemodynamically stable. Will obtain CT Abdomen/Pelvis, abdominal labs and EKG. Provided 1g IV Tylenol for pain control. Labs reviewed. Mild leukocytosis 12.2. No significant anemia. LA 2.5. UA notable for hematuria without cystitis. CT notable for a 3mm stone in the mid to distal aspect of the left ureter with minimal left hydronephrosis, hydroureter, and perinephric stranding. Patient re-evaluated and states her pain is improved. Plan: Discharge to home with PCP and Urology follow up Return precautions given Rx Flomax sent to pharmacy Medications Administered Discontinued Medications Generic Name Dose Route Start Last Admin Trade Name Dayana PRN Reason Stop Dose Admin Acetaminophen 1,000 mg in 100 mls @ 400 mls/hr 09/18/24 13:20 09/18/24 13:32 Ofirmev IV 09/18/24 13:34 400 mls/hr ONCE ONE Administration Iohexol 100 ml 09/18/24 16:41 09/18/24 16:41 Iohexol 350 Mg/Ml 100 Ml Infus..Btl IV 09/18/24 16:42 85 ml ONCE ONE Administration Medical Decision Making Lab Data 09/18/24 15:38 09/18/24 15:38 Labs: Lab Results 09/18/24 Range/Units 15:38 WBC 12.2 H (4.8-10.8) X10*3/uL RBC 5.15 (4.20-5.50) X10*6/uL Hgb 13.7 (12.0-16.0) g/dl Hct 42.6 (37.0-47.0) % MCV 82.7 (80.0-98.0) fL MCH 26.6 L (27.0-33.0) pg MCHC 32.2 (31.0-35.0) g/dl RDW 13.1 (11.0-16.0) % Plt Count 247 (160-400) X10*3/uL MPV 10.2 (9.4-12.3) fL Immature Gran % (Auto) 0.4 (0.0-0.4) % Neut % (Auto) 82.0 H (45-73) % Lymph % (Auto) 12.0 L (20-40) % [place] % (Auto) 4.7 (2-11) % Eos % (Auto) 0.2 (0-4) % Baso % (Auto) 0.7 (0-2) % Lymph # (Auto) 1.5 (1.2-4.9) X10*3/uL [place] # (Auto) 0.6 (0.1-1.2) X10*3/uL Eos # (Auto) 0.0 (0.0-0.4) X10*3/uL Baso # (Auto) 0.1 (0.0-0.2) X10*3/uL Abs Immat Gran (auto) 0.05 H (0.00-0.03) X10*3/uL Absolute Neuts (auto) 10.0 H (2.0-8.3) x10*3/uL Absolute Nucleated RBC 0.000 (0.0-0.012) X10*3/uL Nucleated RBC % (auto) 0.0 (0.0-0.2) /100WBC Sodium 144 (135-145) mmol/L Potassium 4.5 (3.3-5.1) mmol/L Chloride 109 H (96-108) mmol/L Carbon Dioxide 26 (22-29) mmol/L Anion Gap 14 (12-20) BUN 14 (9-16) mg/dL Creatinine 0.71 (0.5-1.4) mg/dL Estim Creat Clear Calc 99.5 Estimated GFR > 60 Random Glucose 182 H (60-115) mg/dL Lactic Acid 2.5 H* (0.5-2.0) mmol/L Calcium 9.6 (8.4-10.2) mg/dL Total Bilirubin 0.4 (0.0-1.0) mg/dL Direct Bilirubin 0.1 (0.0-0.5) mg/dL AST 35 H (5-31) U/L ALT 44 H (0-31) U/L Total Protein 6.8 (6.5-8.0) g/dL Albumin 4.6 (3.5-5.0) g/dL Lipase 20 (8-78) U/L Urine Color [place] A Urine Appearance Cloudy Urine pH >= 9.0 (5.0-9.0) Ur Specific [place] 1.015 (1.005-1.025) Urine Protein Trace (Neg-Trace) mg/dL Urine Glucose (UA) Negative (Negative) mg/dL Urine Ketones 15 (Negative) mg/dL Urine Blood Large (3+) H (Negative) Urine Nitrite Negative (Negative) Ur Leukocyte Esterase Negative (Negative) Urine RBC >20 H (0-2) /HPF Urine WBC 0-5 (0-5) /HPF Ur Squamous Epith Cells 0-2 (0-2) /HPF Urine Bacteria None Seen (None Seen) Hyaline Casts 0-2 (0-2) /LPF Independent Interpretation I performed an independent interpretation of an: EKG Interpretation: NSR 79BPM without ischemic changes, normal intervals Radiology Impression Discussion of test interpretation with radiology: I have reviewed the radiologist's reading. Radiologist Impression: CLINICAL HISTORY: LLQ abd pain CT abdomen and pelvis with contrast Comparison: None Findings: No consolidation or effusion. The gallbladder is unremarkable. No biliary ductal dilatation. Significant low-attenuation of the liver suggestive of steatosis with areas of focal sparing. The spleen, pancreas, adrenal glands and right kidney are unremarkable. A 3 mm stone is demonstrated in mid to distal aspect of the left ureter resulting in slight left hydronephrosis and hydroureter and mild left perinephric stranding. Subcentimeter left renal cortical hypodense lesion which is too small to be fully characterized. No bowel obstruction, pneumoperitoneum, or pneumatosis. The appendix is unremarkable. Uterus is absent. Urinary bladder is unremarkable. No free fluid. No loculated fluid collection. Bilateral small fat containing inguinal hernias No acute fracture. Diffuse demineralization. Facet arthropathy lower lumbar spine. Implanted sacral stimulator. IMPRESSION: 1. 3 mm stone in mid to distal aspect of the left ureter with minimal left hydronephrosis and hydroureter and perinephric stranding. 2. Additional nonacute findings as described. This document has been electronically signed by: Dariela Starr MD on 09/18/2024 17:57:02 Discharge Plan Discharge Clinical Impression: Kidney stone Patient Disposition: Home, Self-Care Instructions: Renal Colic (ED) Additional Instructions: [facility] will be contacting you within 2 business?days after being discharged from the Emergency?Department.? During this?phone call, they will inform you when your follow up appointment will be scheduled. If you have not received a call from [facility] after 2 business?days, please call the?office at [phone]. Prescriptions: New tamsulosin [Flomax] 0.4 mg capsule 0.4 mg PO DAILY 7 Days Qty: 7 0RF No Action cholecalciferol (vitamin D3) 50 mcg (2,000 unit) capsule 50 mcg PO DAILY Qty: 90 2RF sumatriptan succinate 100 mg tablet 100 mg PO .COMPLEX PRN (Reason: Headache) 10 Days Qty: 10 0RF Rx Instructions: 100 mg orally wth onset of headache, may repeat after 2 hrs if first tab does not work PRN; montelukast 10 mg tablet 10 mg PO DAILY Qty: 90 3RF duloxetine 60 mg capsule,delayed release(DR/EC) 60 mg PO DAILY Qty: 90 3RF loratadine 10 mg tablet 10 mg PO DAILY Qty: 90 3RF famotidine 40 mg tablet 40 mg PO DAILY Qty: 90 3RF diclofenac sodium [Arthritis Pain (diclofenac)] 1 % gel 4 g topical QID Qty: 100 0RF Rx Instructions: apply to single knee, ankle, foot; for foot includes sole/toes/top of foot omega-3 acid ethyl esters [Lovaza] 1 gram capsule 1 cap PO BID oxycodone 5 mg tablet 5 mg PO Q4H PRN (Reason: pain) Qty: 20 0RF Rx Instructions: Partial Fill upon patient request. celecoxib 200 mg capsule 200 mg PO DAILY ginkgo biloba 40 mg tablet 40 mg PO DAILY Rx Instructions: give with meal/snack Referrals: [facility] [Provider Group] Print Language: Polish
--- NOTE | 2024-09-18 13:08 | ECG_ITS ---
Test Reason : ARRYTHMIA Blood Pressure : */* mmHG Vent. Rate : 79 BPM Atrial Rate : 79 BPM P-R Int : 128 ms QRS Dur : 78 ms QT Int : 388 ms P-R-T Axes : 33 -4 22 degrees QTcB Int : 444 ms Normal sinus rhythm Normal ECG When compared with ECG of 22-Nov-2023 12:38, No significant change was found Referred By: Hanna Barr Electronically Signed By: DELMA ARRIAZA
--- NOTE | 2024-09-18 13:26 | PC.NURSE ---
Addendum entered by Meli Benavides RN 09/18/24 13:27: Patient is a 64 y/o F patient; PMH GERD, HLD, fibromyalgia, asthma; presents from home via EMS with report of significant LLQ abdominal pain. Associated with nausea and diaphoresis. Patient states was sudden onset. Patient extremely hypertensive. Lungs clear bilat. Respirations even and non-labored. Abdomen large, soft, non-tender with c/o LLQ abdominal pain. Positive pedal pulses with no edema noted. Original Note: Medical History PONV (postoperative nausea and vomiting) Environmental allergies Seasonal allergies Cervical spondylosis with radiculopathy Osteopenia of left femoral neck GERD (gastroesophageal reflux disease) Family history of thyroid disease in mother Paresthesias Family history of von Willebrand disease Polyarthralgia Impaired fasting glucose Mixed dyslipidemia Allergic rhinitis Odynophagia Postlaminectomy syndrome Chronic fatigue Family history of thyroid disease Spondylosis of cervical spine Fibromyalgia COVID-19 vaccine series completed History of postoperative nausea and vomiting Asthma Increased BMI History of shingles Postmenopause Family history of ankylosing spondylitis Sacroiliitis Lumbar back pain with radiculopathy affecting lower extremity
[2024-09-18] MEDS: Acetaminophen 1,000 MG/100 ML PIGGYBACK 400 MG IV (13:32)
--- OUTSIDE RECORDS SUMMARY | 2024-09-18 13:38 | XMS_ITS | Data Portability ---
Author Organization [facility] [address] Address [address] [place] [address] Assessment No assessment recorded. Plan of Treatment [...] Out Template NON DOT completed Hayley SILVESTRE [employer] 05/28/2022 08:28:09 Imaging Results None recorded. 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 [address] [facility] [address] [place] [address] 05/28/2022 08:10:49 05/28/2022 09:14:45 History and physical examination, occupation [id number] Z02.1 Health Concerns Section Related Observation LastModified by Organization Detai ls LastModified Time None Recorded Concern Status LastModified by Organization Details LastModified Time None Recorded Advance Directives Directive None Recorded Payers Insurance Date Sequence Insurance Name Policy Number Policy Clemons Covered Member ID Clemons Member ID Guarantor Name 05/28/2022 1 [id number] Seema Hutton [id number] Seema Hutton 05/28/2022 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
[2024-09-18 15:54] LABS: MANUAL DIFF FLAG NO
[2024-09-18 15:56] LABS: Basophils Absolute Auto 0.1 X10*3/uL (0.0-0.2); Basophils Percent Auto 0.7 % (0-2); Eosinophils Percent Auto 0.2 % (0-4); Hematocrit 42.6 % (37.0-47.0); Hemoglobin 13.7 g/dl (12.0-16.0); Imm Gran Abs Auto 0.05 X10*3/uL (0.00-0.03); Imm Gran Pct Auto 0.4 % (0.0-0.4); Lymphocytes Absolute Auto 1.5 X10*3/uL (1.2-4.9); Mean Corpuscular HGB Conc 32.2 g/dl (31.0-35.0); Mean Corpuscular Hemoglobin 26.6 pg (27.0-33.0); Mean Corpuscular Volume 82.7 fL (80.0-98.0); Mean Platelet Volume 10.2 fL (9.4-12.3); Monocytes Absolute Auto 0.6 X10*3/uL (0.1-1.2); Monocytes Percent Auto 4.7 % (2-11); Platelet Count 247 X10*3/uL (160-400); Red Blood Count 5.15 X10*6/uL (4.20-5.50); Red Cell Distribution Width 13.1 % (11.0-16.0); White Blood Count 12.2 X10*3/uL (4.8-10.8)
[2024-09-18 15:58] LABS: Appearance Urine Cloudy; Color Urine Orange; Glucose Urine UA Negative (Negative); Leukocyte Esterase Urine Negative (Negative); Nitrite Urine Negative (Negative); PH >= 9.0 (5.0-9.0); Specific Gravity - Urine 1.015 (1.005-1.025); UMIC TRIGGER UACC YES; Urine Blood Large (3+) (Negative); Urine Ketones 15 mg/dL (Negative); Urine Protein Trace mg/dL (Neg-Trace)
[2024-09-18 15:59] LABS: Bacteria Urine None Seen (None Seen); Hyaline Casts Urine 0-2 /LPF (0-2); RBC Urine >20 /HPF (0-2); Squamous Epithelial Cell Urine 0-2 /HPF (0-2); WBC Urine 0-5 /HPF (0-5)
[2024-09-18 16:13] LABS: Lactic Acid 2.5 mmol/L (0.5-2.0)
[2024-09-18 16:16] LABS: Alanine Aminotransferase 44 U/L (0-31); Albumin Level 4.6 g/dL (3.5-5.0); Anion Gap 14 (12-20); Aspartate Amino Transferase 35 U/L (5-31); Bilirubin Direct 0.1 mg/dL (0.0-0.5); Bilirubin Total 0.4 mg/dL (0.0-1.0); Blood Urea Nitrogen 14 mg/dL (9-16); Calcium 9.6 mg/dL (8.4-10.2); Carbon Dioxide 26 mmol/L (22-29); Chloride 109 mmol/L (96-108); Creatinine Clr Calc Pharmacy 99.5; Estimated Glomerular Filt Rate > 60; Glucose Random 182 mg/dL (60-115); Lipase 20 U/L (8-78); Potassium 4.5 mmol/L (3.3-5.1); Sodium 144 mmol/L (135-145); Total Protein 6.8 g/dL (6.5-8.0)
[2024-09-18] MEDS: iohexoL 350 MG/ML 100 ML INFUS..BTL IV (16:41)
[2024-09-18 17:52] LABS: Reflex Lactate? Lactic Acid Added
[2024-09-18] MEDS: Tamsulosin HCL 0.4 MG CAPSULE PO (18:10)
[2024-09-18 19:58] LABS: Alkaline Phosphatase 103 U/L (39-117)
== END 2024-09-18 18:19 | disposition home or self-care (01) ==
PROVIDERS: Emergency Provider Emergency Medicine; PCP Nurse Practitioner Family
DX: N20.0 Calculus of kidney (principal); R10.32 Left lower quadrant pain; I49.9 Cardiac arrhythmia, unspecified; R11.0 Nausea; Z87.891 Personal history of nicotine dependence; Z79.899 Other long term (current) drug therapy
CPT/HCPCS: 36415; 74177; 80048; 80076; 81001; 83605; 83690; 85025; 93005; 96365; 99284; 99285; J0131; Q9967

== ENCOUNTER → 2024-09-18 13:08 | Outpatient (BNV) | payer OTHER, SELFPAY | PROVIDERS: Emergency Provider Emergency Medicine; PCP Nurse Practitioner Family; Visit Provider Internal Medicine | DX: I49.9 Cardiac arrhythmia, unspecified (principal) | CPT/HCPCS: 93010 ==

== ENCOUNTER → 2024-09-18 13:19 | Outpatient (BNV) | payer OTHER, SELFPAY | PROVIDERS: Emergency Provider Emergency Medicine; PCP Nurse Practitioner Family; Visit Provider Specialist | DX: N20.1 Calculus of ureter (principal) | CPT/HCPCS: 74177 ==

== ENCOUNTER 2024-10-12 13:29 | Outpatient (REF) | payer OTHER, SELFPAY ==
--- OUTSIDE RECORDS SUMMARY | 2024-10-12 13:58 | XMS_ITS | Data Portability ---
Author Organization [facility] [employer] [address] Address [address] [place] [address] Assessment No assessment recorded. Plan of Treatment [...] Out Template NON DOT completed Hayley SILVESTRE [employer] [facility] 05/28/2022 08:28:09 Imaging Results None recorded. Procedure [...] SNOMED-CT Code Diagnosis ICD10 Code Diagnosis Note [id number] [address] [facility] [address] [place] [address] 10/19/2018 09:28:52 10/19/2018 10:06:31 [id number] Chun Tunde, RECORDS ASSISTANT [address] [facility] [address] [place] [address] 05/28/2022 08:10:49 05/28/2022 09:14:45 History and physical examination, occupation [id number] Z02.1 Health Concerns Section Related Observation LastModified by Organization Detai ls LastModified Time None Recorded Concern Status LastModified by Organization Details LastModified Time None Recorded Advance Directives Directive None Recorded Payers Insurance Date Sequence Insurance Name Policy Number Policy Clemons Covered Member ID Clemons Member ID Guarantor Name 05/28/2022 1 [id number] Seema Hutton [id number] Seema Hutton 05/28/2022 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
--- OUTSIDE RECORDS SUMMARY | 2024-10-12 13:58 | XMS_ITS | Clinical Summary ---
Author Organization 175 [facility] Address [address] [place] [address] Phone Care Team Providers Care Wound Care Physician Name Role Phone Mariluz Lopez NP Primary [...] the CT myelogram in detail with Ms. Meeks and reassured her that documented L3-4 stenosis is mild and though it may efface the thecal sac, there is no true nerve root compression and I do not feel she has cauda equina syndrome. She will continue working with [employer] to make adjustments to the newer spinal cord stimulator which had been working pretty well for her. I think she would also benefit from an aquatic/swimming program for core strengthening which she is agreeable. Surgical History Surgery Date Site/Laterality Comments OTHER SURGICAL HISTORY PROCEDURE: ME TOTAL ABDOMINAL HYSTERECT W/WO RMVL TUBE OVARY; [...] patient's age to complete this topic Insurance Care Teams Wound Care Physician Relationship Specialty Start Date End Date Mariluz Lopez NP [address] [facility] [place] [address] PCP - General Family Medicine 06/30/24
== END 2024-10-12 13:30 | disposition home or self-care (01) ==
LOC: HO.MAMMO 13:29
PROVIDERS: PCP Nurse Practitioner Family; Visit Provider Internal Medicine
DX: Z12.31 Encounter for screening mammogram for malignant neoplasm of breast (principal)
CPT/HCPCS: 77063; 77067

== ENCOUNTER → 2024-10-12 14:00 | Outpatient (BNV) | payer OTHER, SELFPAY | PROVIDERS: PCP Nurse Practitioner Family; Visit Provider Internal Medicine | DX: Z12.31 Encounter for screening mammogram for malignant neoplasm of breast (principal) | CPT/HCPCS: 77063; 77067 ==

== ENCOUNTER 2024-10-13 16:12 | Emergency (ER) | payer OTHER, SELFPAY ==
--- NOTE | ~2024-10-13 | FL_ITS ---
EXAMINATION: FL GUIDANCE ONLY HISTORY: left ureteral stone COMPARISON: Correlation is made with an unenhanced CT of the abdomen and pelvis dated 10/13/2024. TECHNIQUE: Fluoroscopy time: 14.8 seconds. Cumulative Dose: 7.82 mGy. Images: 2. FINDINGS: Fluoroscopic spot films demonstrate placement of a left nephroureteral stent. FL/FL guidance in OR IMPRESSION: Fluoroscopy during procedure. Please see procedure report for additional information. Electronically signed by: Humble Vincent MD 10/14/2024 02:45 PM EDT
--- NOTE | ~2024-10-13 | CT_ITS ---
CLINICAL HISTORY: Left flank pain --- Additional Notes or Special Instructions: Patient with left ureteric stone having worsening of the CT abdomen and pelvis without contrast Comparison: CT of the abdomen and pelvis from 09/18/2024 Findings: Mild bibasilar atelectasis and scarring. Steatotic change of the liver is redemonstrated with sparing about the gallbladder fossa. Gallbladder is mildly distended. Adrenal glands, pancreas, and spleen appear unchanged. 7 mm calcification of the left ureterovesicular junction (image 63 of series 7). Mild left-sided hydroureteronephrosis. Bilateral perinephric stranding, left worse than right. Cystic lesions of the kidneys are not further characterize without intravenous contrast and likely include parapelvic cysts. Small mesenteric and periaortic lymph nodes are nonspecific and likely reactive. No small bowel obstruction. Severe stool burden is present, including the cecum. Imaged appendix is within normal limits (imaged 51 of series 7) and retrocecal. Mild wall thickening of the mildly distended urinary bladder. Uterus and/or remnant is anteverted. No adnexal soft tissue mass by CT. Moderate bilateral fat containing inguinal hernias. Mild deformities of the imaged pelvis appear old/chronic. Degenerative changes include imaged hips, pubic symphysis, SI joints, in the spine. Right dorsal device with imaged leads and/or electrodes most likely epidural in the imaged spine. Associated artifacts noted. IMPRESSION: 7 mm stone of the left ureterovesicular junction with mild left hydroureteronephrosis. This document has been electronically signed by: Sim Richter MD on 10/13/2024 23:51:35
[2024-10-13 16:36] VITALS: BP 151/80; PULSE 85; RESP 20; TEMP 36.6; O2SAT 99; BMI 38.3
--- NOTE | 2024-10-13 16:36 | ED_ITS ---
HPI - Abdominal Pain General Chief Complaint: Back Pain/Injury Stated Complaint: left side pain/blood in the urine Time Seen by Provider: 10/13/24 18:56 Source: patient Mode of arrival: ambulatory Limitations: no limitations History of Present Illness ED Provider: HPI narrative: 64 years old with history of hyperlipidemia fibromyalgia asthma no prior history of kidney stone was seen here on 09/18 for left lower quadrant pain diagnose with 3 mm stone at the lower left ureter with mild hydronephrosis patient was feeling much better after discharge from the ER but since last night noticed to have dull pain off and on but for last 2 hours prior to arrival noticed severe pain associated with blood in the urine associated with nausea no fever no chills Related Data Home Medications ?Medication ?Instructions ?Recorded ?Confirmed ginkgo biloba 40 mg tablet 40 mg PO DAILY 08/24/2203/08 omega-3 acid ethyl esters 1 gram 1 cap PO BID 11/22/23 03/25/24 capsule (Lovaza) celecoxib 200 mg capsule 200 mg PO DAILY for pain 03/0803/25/24 Previous Rx's ?Medication ?Instructions ?Recorded cholecalciferol (vitamin D3) 50 50 mcg PO DAILY #90 ca ps 07/09/22 mcg (2,000 unit) capsule sumatriptan succinate 100 mg tablet 100 mg PO .COMPLEX PRN Headache 10 07/12/23 days #10 tabs oxycodone 5 mg tablet 5 mg PO Q4H PRN pain #20 tab s 12/05/23 duloxetine 60 mg capsule,delayed 60 mg PO DAILY #90 ca ps 12/20/23 release montelukast 10 mg tablet 10 mg PO DAILY #90 tabs 090 10/06 loratadine 10 mg tablet 10 mg PO DAILY #90 tabs 01/13 12/06 famotidine 40 mg tablet 40 mg PO DAILY #90 tabs 06/09 diclofenac sodium 1 % topical gel 4 g topical QID #100 grams 07/28/24 (Arthritis Pain (diclofenac)) tamsulosin 0.4 mg capsule (Flomax) 0.4 mg PO DAILY 7 d ays #7 caps 09/18/24 Allergies Allergy/AdvReac Type Severity Reaction Status Date / Time No Known Allergies (No Known Allergy Verified 10/13/24 16:38 Allergies*) Review of Systems Review of Systems Yes all other systems are reviewed and are negative [facility] Past Medical History Medical History PONV (postoperative nausea and vomiting) Environmental allergies Seasonal allergies Cervical spondylosis with radiculopathy Osteopenia of left femoral neck GERD (gastroesophageal reflux disease) Family history of thyroid disease in mother Paresthesias Family history of von Willebrand disease Polyarthralgia Impaired fasting glucose Mixed dyslipidemia Allergic rhinitis Odynophagia Postlaminectomy syndrome Chronic fatigue Family history of thyroid disease Spondylosis of cervical spine Fibromyalgia COVID-19 vaccine series completed History of postoperative nausea and vomiting Asthma Increased BMI History of shingles Postmenopause Family history of ankylosing spondylitis Sacroiliitis Lumbar back pain with radiculopathy affecting lower extremity Surgical History Hx of arthroscopic knee surgery S/P insertion of spinal cord stimulator History of microdiscectomy History of breast mammoplasty History of knee surgery History of total abdominal hysterectomy and bilateral salpingo-oophorectomy Family History Family History Father Arthritis COPD (chronic obstructive pulmonary disease) Afib High cholesterol CVD (cardiovascular disease) Mother Arthritis High cholesterol Graves disease Brother Arthritis Sister Sjogrens syndrome Mental health disorder Maternal Grandmother Breast cancer Myoclonus Rheumatoid arthritis PTSD (post-traumatic stress disorder) Sister Lyme disease Fibromyalgia Graves disease Son No problems noted. Daughter No problems noted. Maternal Aunt Mental health disorder Social History Social History Household Members: Spouse Housing: House Are you a primary cardiac care nurse to a significant other at home: Yes (mother, will have care by another family member in th post-op period) Do you presently have visiting nurse or other home services: No Alcohol intake: never Comment: aware of trip hazard Patient Tobacco Use Status: Former Tobacco user Tobacco use type: Cigarette Smoked in Last 30 Days: No e-Cigarette/Vaping Use: Never Used Second Hand Smoke Exposure: No Use of substances other than those prescribed or required for medical reasons: No Advance Directives: Yes Advance Directives on File: Yes Advance Directives Date on File: 02/26/20 Do you have a plan to hurt others: No Plan service: No Current occupational status: employed Cognitive needs: No Hearing needs: No Vision needs: No Physical Exam ED Vital Signs: Vital Signs - 24 hr 10/13/24 16:36 10/13/24 18:45 10/13/24 20:36 Temperature 97.8 F 97.9 F 97.8 F Pulse Rate 85 86 78 Respiratory Rate 20 18 18 Blood Pressure 151/80 H 148/83 H 151/73 H Pulse Oximetry 99 97 97 Oxygen Delivery Method Room Air Room Air Room Air BMI result Body Mass Index 38.3 Appearance: Alert. Oriented X3. In moderate distress Eyes: PERRLA, No Nystagmus ENT: Pharynx normal. Oral Mucosa moist Neck: Normal inspection. Neck supple. CVS: Normal heart rate and rhythm. Pulses normal. Respiratory: No respiratory distress. Equal air entry bilateral, no wheezing/rales/rhonchi Abdomen: Soft and nontender. Bowel sounds are present, no mass palpable, left CVA tenderness ++ Skin: Skin warm and dry. Normal skin color. Normal skin turgor. Extremities: No lower extremity edema. No calf tenderness Neuro: Oriented X 3. No motor deficit. No sensory deficit.No cerebellar signs , cranial nerves II-XII intact Course Course Course Narrative: This is an RME performed by Gabriele Blanco CNP: Additional HPI, ROS, PE not included below will be deferred to primary provider. patient is a 64-year-old female who presents emergency department for evaluation of abdominal/back pain with hematuria onset 2 hours prior to arrival Associated chills nausea. seen in the ED 09/18/2024, found to have your stone in the mid to distal left ureter with mild hydro hydroureter and perinephric stranding was discharged home. Has been otherwise doing believes she recently passed the stone primary care doctor. plan: Serum labs, urinalysis Medical Decision Making Medical Decision Making MDM Narrative: Patient's left renal colic with 7 mm obstructive left UVJ stone unable to pass for last 1 month comes here with increased pain case discussed with Dr. Bourne will see the patient in a.m. NPO for now Dr. Laird to follow while in the ER Lab Data [facility] Lab Attestation statement: I reviewed the patient's lab results. 10/13/24 17:11 10/13/24 17:11 Labs: Lab Results 10/13/24 10/13/24 Range/Units 17:11 17:15 WBC 12.3 H (4.8-10.8) X10*3/uL RBC 5.11 (4.20-5.50) X10*6/uL Hgb 13.7 (12.0-16.0) g/dl Hct 41.6 (37.0-47.0) % MCV 81.4 (80.0-98.0) fL MCH 26.8 L (27.0-33.0) pg MCHC 32.9 (31.0-35.0) g/dl RDW 13.2 (11.0-16.0) % Plt Count 245 (160-400) X10*3/uL MPV 10.0 (9.4-12.3) fL Immature Gran % (Auto) 0.6 H (0.0-0.4) % Neut % (Auto) 76.2 H (45-73) % Lymph % (Auto) 15.6 L (20-40) % [place] % (Auto) 5.4 (2-11) % Eos % (Auto) 1.5 (0-4) % Baso % (Auto) 0.7 (0-2) % Lymph # (Auto) 1.9 (1.2-4.9) X10*3/uL [place] # (Auto) 0.7 (0.1-1.2) X10*3/uL Eos # (Auto) 0.2 (0.0-0.4) X10*3/uL Baso # (Auto) 0.1 (0.0-0.2) X10*3/uL Abs Immat Gran (auto) 0.07 H (0.00-0.03) X10*3/uL Absolute Neuts (auto) 9.4 H (2.0-8.3) x10*3/uL Absolute Nucleated RBC 0.000 (0.0-0.012) X10*3/uL Nucleated RBC % (auto) 0.0 (0.0-0.2) /100WBC Sodium 139 (135-145) mmol/L Potassium 4.6 (3.3-5.1) mmol/L Chloride 105 (96-108) mmol/L Carbon Dioxide 24 (22-29) mmol/L Anion Gap 15 (12-20) BUN 19 H (9-16) mg/dL Creatinine 0.85 (0.5-1.4) mg/dL Estim Creat Clear Calc 80.1 Estimated GFR > 60 Random Glucose 139 H (60-115) mg/dL Calcium 10.2 D (8.4-10.2) mg/dL Total Bilirubin 0.3 (0.0-1.0) mg/dL AST 30 (5-31) U/L ALT 41 H (0-31) U/L Alkaline Phosphatase 102 (39-117) U/L Total Protein 6.8 (6.5-8.0) g/dL Albumin 4.6 (3.5-5.0) g/dL Urine Color [place] A Urine Appearance Cloudy Urine pH 5.0 (5.0-9.0) Ur Specific [place] 1.020 (1.005-1.025) Urine Protein 100 (2+) H (Neg-Trace) mg/dL Urine Glucose (UA) Negative (Negative) mg/dL Urine Ketones 15 (Negative) mg/dL Urine Blood Large (3+) H (Negative) Urine Nitrite Negative (Negative) Ur Leukocyte Esterase Small (1+) H (Negative) Urine RBC >20 H (0-2) /HPF Urine WBC 11-20 H (0-5) /HPF Ur Squamous Epith Cells 3-5 (0-2) /HPF Urine Bacteria None Seen (None Seen) Hyaline Casts 0-2 (0-2) /LPF Radiology Impression Discussion of test interpretation with radiology: I have reviewed the radiologist's reading. Radiologist Impression: [place] [id number] CT Scan Report Signed Patient: Seema Hutton MR#: [id number] : 1960 Acct:[id number] Age/Sex: 64 / F ADM Date: 10/13/24 Loc: .ED Attending Dr: Ordering Physician: Robert Jaramillo MD Date of Service: 10/13/24 Procedure(s): CT abdomen pelvis wo IV con Accession Number(s): [id number] cc: Mariluz Lopez CNP; Robert Jaramillo MD~ Report Number: [id number]: Total DLP = 889.00 mGy-cm CLINICAL HISTORY: Left flank pain --- Additional Notes or Special Instructions: Patient with left ureteric stone having worsening of the CT abdomen and pelvis without contrast Comparison: CT of the abdomen and pelvis from 09/18/2024 Findings: Mild bibasilar atelectasis and scarring. Steatotic change of the liver is redemonstrated with sparing about the gallbladder fossa. Gallbladder is mildly distended. Adrenal glands, pancreas, and spleen appear unchanged. 7 mm calcification of the left ureterovesicular junction (image 63 of series 7). Mild left-sided hydroureteronephrosis. Bilateral perinephric stranding, left worse than right. Cystic lesions of the kidneys are not further characterize without intravenous contrast and likely include parapelvic cysts. Small mesenteric and periaortic lymph nodes are nonspecific and likely reactive. No small bowel obstruction. Severe stool burden is present, including the cecum. Imaged appendix is within normal limits (imaged 51 of series 7) and retrocecal. Mild wall thickening of the mildly distended urinary bladder. Uterus and/or remnant is anteverted. No adnexal soft tissue mass by CT. Moderate bilateral fat containing inguinal hernias. Mild deformities of the imaged pelvis appear old/chronic. Degenerative changes include imaged hips, pubic symphysis, SI joints, in the spine. Right dorsal device with imaged leads and/or electrodes most likely epidural in the imaged spine. Associated artifacts noted. IMPRESSION: 7 mm stone of the left ureterovesicular junction with mild left hydroureteronephrosis. This document has been electronically signed by: Sim Richter MD on 10/13/2024 23:51:35 Medications Administered Discontinued Medications Generic Name Dose Route Start Last Admin Trade Name Freq PRN Reason Stop Dose Admin Sodium Chloride 1,000 mls @ 999 mls/hr 10/13/24 19:22 10/13/24 20:39 Ns IV 10/13/24 20:22 Infused .Q1H1M ONE Infusion Ketorolac Tromethamine 30 mg 10/13/24 19:22 10/13/24 19:35 Ketorolac Tromethamine 30 Mg/Ml Vial IVPUSH 10/13/24 19:23 30 mg ONCE ONE Administration Morphine Sulfate 4 mg 10/13/24 19:22 10/13/24 19:40 Morphine Sulfate 4 Mg/Ml Cartridge IVPUSH 10/13/24 19:23 4 mg ONCE ONE Administration Protocol Morphine Sulfate 4 mg 10/13/24 22:06 10/13/24 22:21 Morphine Sulfate 4 Mg/Ml Cartridge IVPUSH 10/13/24 22:07 4 mg ONCE ONE Administration Protocol Ondansetron HCl 4 mg 10/13/24 19:22 10/13/24 19:33 Ondansetron Hcl 4 Mg/2 Ml Vial IVPUSH 10/13/24 19:23 4 mg ONCE ONE Administration Tamsulosin HCl 0.4 mg 10/13/24 20:21 10/13/24 20:39 Tamsulosin Hcl 0.4 Mg Capsule PO 10/13/24 20:22 0.4 mg ONCE ONE Administration Discharge Plan Discharge Clinical Impression: Renal colic on left side, Hydronephrosis due to obstruction of ureter Patient Disposition: Still a Patient Prescriptions: No Action cholecalciferol (vitamin D3) 50 mcg (2,000 unit) capsule 50 mcg PO DAILY Qty: 90 2RF sumatriptan succinate 100 mg tablet 100 mg PO .COMPLEX PRN (Reason: Headache) 10 Days Qty: 10 0RF Rx Instructions: 100 mg orally wth onset of headache, may repeat after 2 hrs if first tab does not work PRN; montelukast 10 mg tablet 10 mg PO DAILY Qty: 90 3RF duloxetine 60 mg capsule,delayed release(DR/EC) 60 mg PO DAILY Qty: 90 3RF loratadine 10 mg tablet 10 mg PO DAILY Qty: 90 3RF famotidine 40 mg tablet 40 mg PO DAILY Qty: 90 3RF diclofenac sodium [Arthritis Pain (diclofenac)] 1 % gel 4 g topical QID Qty: 100 0RF Rx Instructions: apply to single knee, ankle, foot; for foot includes sole/toes/top of foot omega-3 acid ethyl esters [Lovaza] 1 gram capsule 1 cap PO BID oxycodone 5 mg tablet 5 mg PO Q4H PRN (Reason: pain) Qty: 20 0RF Rx Instructions: Partial Fill upon patient request. celecoxib 200 mg capsule 200 mg PO DAILY tamsulosin [Flomax] 0.4 mg capsule 0.4 mg PO DAILY 7 Days Qty: 7 0RF ginkgo biloba 40 mg tablet 40 mg PO DAILY Rx Instructions: give with meal/snack Print Language: Bhutanese
[2024-10-13 17:14] LABS: MANUAL DIFF FLAG NO
[2024-10-13 17:17] LABS: Hematocrit 41.6 % (37.0-47.0); Hemoglobin 13.7 g/dl (12.0-16.0); Imm Gran Abs Auto 0.07 X10*3/uL (0.00-0.03); Imm Gran Pct Auto 0.6 % (0.0-0.4); Lymphocytes Absolute Auto 1.9 X10*3/uL (1.2-4.9); Mean Corpuscular HGB Conc 32.9 g/dl (31.0-35.0); Mean Corpuscular Hemoglobin 26.8 pg (27.0-33.0); Mean Corpuscular Volume 81.4 fL (80.0-98.0); NRBC Abs Auto 0.000 X10*3/uL (0.0-0.012); NRBC Pct Auto 0.0 /100WBC (0.0-0.2); Platelet Count 245 X10*3/uL (160-400); Red Blood Count 5.11 X10*6/uL (4.20-5.50); White Blood Count 12.3 X10*3/uL (4.8-10.8)
[2024-10-13 17:35] LABS: Appearance Urine Cloudy; Glucose Urine UA Negative (Negative); PH 5.0 (5.0-9.0); Specific Gravity - Urine 1.020 (1.005-1.025); UACC Culture Trigger YES; UMIC TRIGGER UACC YES
[2024-10-13 17:44] LABS: Alanine Aminotransferase 41 U/L (0-31); Albumin Level 4.6 g/dL (3.5-5.0); Alkaline Phosphatase 102 U/L (39-117); Anion Gap 15 (12-20); Aspartate Amino Transferase 30 U/L (5-31); Blood Urea Nitrogen 19 mg/dL (9-16); Calcium 10.2 mg/dL (8.4-10.2); Carbon Dioxide 24 mmol/L (22-29); Chloride 105 mmol/L (96-108); Creatinine Clr Calc Pharmacy 80.1; Estimated Glomerular Filt Rate > 60; Potassium 4.6 mmol/L (3.3-5.1); Sodium 139 mmol/L (135-145); Total Protein 6.8 g/dL (6.5-8.0)
[2024-10-13 18:45] VITALS: BP 148/83; PULSE 86; RESP 18; TEMP 36.6; O2SAT 97
--- OUTSIDE RECORDS SUMMARY | 2024-10-13 19:04 | XMS_ITS | Clinical Summary ---
Author Organization 175 [facility] Address [address] [place] [address] Phone Care Team Providers Care Beauty Sales Consultant Name Role Phone Mariluz Lopez NP Primary [...] equina syndrome. She will continue working with [facility] to make adjustments to the newer spinal cord stimulator which had been working pretty well for her. I think she would also benefit from an aquatic/swimming program for core strengthening which she is agreeable. Surgical History Surgery Date Site/Laterality Comments OTHER SURGICAL HISTORY PROCEDURE: [place] TOTAL ABDOMINAL HYSTERECT W/WO RMVL TUBE OVARY; [...] to complete this topic Insurance Care Teams Beauty Sales Consultant Relationship Specialty Start Date End Date Mariluz Lopez NP [address] [place] [address] PCP - General Family Medicine 06/30/24
--- OUTSIDE RECORDS SUMMARY | 2024-10-13 19:04 | XMS_ITS | Data Portability ---
Author Organization [facility] [employer] [address] Address [address] [place] [address] Assessment No assessment recorded. Plan of Treatment [...] Out Template NON DOT completed Hayley SILVESTRE [employer] [facility] 05/28/2022 08:28:09 Imaging Results None recorded. [...] SNOMED-CT Code Diagnosis ICD10 Code Diagnosis Note [id number] [address] [facility] [address] [place] [address] 10/19/2018 09:28:52 10/19/2018 10:06:31 [id number] Chun Tunde, JEWELRY REPAIRER [address] [facility] [address] [place] [address] 05/28/2022 08:10:49 05/28/2022 09:14:45 History and physical examination, occupation [id number] Z02.1 Health Concerns Section Related Observation LastModified by Organization Detai ls LastModified Time None Recorded Concern Status LastModified by Organization Details LastModified Time None Recorded Advance Directives Directive None Recorded Payers Insurance Date Sequence Insurance Name Policy Number Policy Clemons Covered Member ID Clemons Member ID Guarantor Name 05/28/2022 1 [id number] Seema Hutton [id number] Seema Hutton 05/28/2022 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
[2024-10-13 20:36] VITALS: BP 151/73; PULSE 78; RESP 18; TEMP 36.6; O2SAT 97
[2024-10-14] VITALS (11 sets, daily range): BP systolic 121–156; BP diastolic 54–76; PULSE 68–80; RESP 15–20; TEMP 36.3–36.9; O2SAT 94–98
--- NOTE | 2024-10-14 05:04 | PC.NURSE ---
this rn assumed care of pt, pt medicated per mar at this time.
--- NOTE | 2024-10-14 05:08 | PC.NURSE ---
assumed care of pt. pt medicated per JUN.
--- NOTE | 2024-10-14 08:20 | PM.UROCN ---
History of Present Illness Consult details Consult date: 10/14/24 Narrative: 64 years old with history of hyperlipidemia fibromyalgia asthma no prior history of kidney stone was seen here on 09/18 for left lower quadrant pain diagnose with 3 mm stone at the lower left ureter with mild hydronephrosis patient was feeling much better after discharge from the ER but since last night noticed to have dull pain off and on progressing to severe pain associated with blood in the urine associated with nausea. CTAP- 7 mm left UVJ stone left hydronephrosis. Review of Systems Review of Systems: Yes all other systems are reviewed and are negative Constitutional: Constitutional: Reports no additional constitutional complaints Eyes: Eyes: Reports no additional eye complaints ENT: Reports system reviewed and no additional complaints, except as documented Cardiovascular: Cardiovascular: Reports no additional cardiovascular complaints Respiratory: Respiratory: Reports no additional respiratory complaints Gastrointestinal: Gastrointestinal: Reports no additional gastrointestinal complaints Genitourinary: Genitourinary: Reports as per HPI Musculoskeletal: Musculoskeletal: Reports no additional musculoskeletal complaints Integumentary/Breasts: Skin/Breast: Reports system reviewed and no additional complaints, except as docu Neurologic: Reports system reviewed and no additional complaints, except as documented Psychiatric: Psychiatric: Reports no additional psychiatric complaints Endocrine: Endocrine: Reports no additional endocrine complaints Hematologic/Lymphatic: Hematologic/Lymphatic: Reports no additional hematologic/lymphatic complaints Allergic/Immunologic: Allergic/Immunologic: Reports no additional allergic/immunologic complaints PMFSH Past Medical History Medical History PONV (postoperative nausea and vomiting) Environmental allergies Seasonal allergies Cervical spondylosis with radiculopathy Osteopenia of left femoral neck GERD (gastroesophageal reflux disease) Family history of thyroid disease in mother Paresthesias Family history of von Willebrand disease Polyarthralgia Impaired fasting glucose Mixed dyslipidemia Allergic rhinitis Odynophagia Postlaminectomy syndrome Chronic fatigue Family history of thyroid disease Spondylosis of cervical spine Fibromyalgia COVID-19 vaccine series completed History of postoperative nausea and vomiting Asthma Increased BMI History of shingles Postmenopause Family history of ankylosing spondylitis Sacroiliitis Lumbar back pain with radiculopathy affecting lower extremity Family History Family History Father Arthritis COPD (chronic obstructive pulmonary disease) Afib High cholesterol CVD (cardiovascular disease) Mother Arthritis High cholesterol Graves disease Brother Arthritis Sister Sjogrens syndrome Mental health disorder Maternal Grandmother Breast cancer Myoclonus Rheumatoid arthritis PTSD (post-traumatic stress disorder) Sister Lyme disease Fibromyalgia Graves disease Son No problems noted. Daughter No problems noted. Maternal Aunt Mental health disorder Surgical History Surgical History Hx of arthroscopic knee surgery S/P insertion of spinal cord stimulator History of microdiscectomy History of breast mammoplasty History of knee surgery History of total abdominal hysterectomy and bilateral salpingo-oophorectomy Social History Social History Household Members: Spouse Housing: House Are you a primary day care center director to a significant other at home: Yes (mother, will have care by another family member in th post-op period) Do you presently have visiting nurse or other home services: No Alcohol intake: never Comment: aware of trip hazard Patient Tobacco Use Status: Former Tobacco user Tobacco use type: Cigarette Smoked in Last 30 Days: No e-Cigarette/Vaping Use: Never Used Second Hand Smoke Exposure: No Use of substances other than those prescribed or required for medical reasons: No Advance Directives: Yes Advance Directives on File: Yes Advance Directives Date on File: 02/26/20 Do you have a plan to hurt others: No Plan service: No Current occupational status: employed Cognitive needs: No Hearing needs: No Vision needs: No Meds Allergies Allergy/AdvReac Type Severity Reaction Status Date / Time No Known Allergies (No Known Allergy Verified 10/13/24 16:38 Allergies*) Active Medications: Current Medications Sodium Chloride (Ns) 1,000 mls @ 80 mls/hr IVCONT .[id number] [facility] Last Admin: 10/14/24 02:14 Dose: 80 mls/hr Cefazolin Sodium/Dextrose (Ancef) 2 gm in 50 mls @ 100 mls/hr IV PREOP ONE Stop: 10/14/24 08:44 Lactated Ringer's (Lr) 500 mls @ 999 mls/hr IV .Q31M [facility] Stop: 10/14/24 09:00 Morphine Sulfate (Morphine Sulfate 4 Mg/Ml Cartridge) 4 mg IVPUSH Q3H PRN; Protocol PRN Reason: Pain, Moderate(Pain Scale 4-6) Last Admin: 10/14/24 04:55 Dose: 4 mg Ondansetron HCl (Ondansetron Hcl 4 Mg/2 Ml Vial) 4 mg IVPUSH Q8H PRN PRN Reason: Nausea and Vomiting Last Admin: 10/14/24 04:54 Dose: 4 mg Home Medications ?Medication ?Instructions ?Recorded ?Confirmed ?Last Taken ?Type ginkgo biloba 40 mg tablet 40 mg PO DAILY 08/24/22 03/25/24 Unknown History omega-3 acid ethyl esters 1 gram 1 cap PO BID 11/22/23 03/25/24 11/28/23 History capsule (Lovaza) celecoxib 200 mg capsule 200 mg PO DAILY for pain 03/25/24 03/25/24 Unknown History Physical Exam Vital Signs: Vital Signs: Last Vital Signs Temp 97.7 F 10/14/24 06:26 Pulse 69 10/14/24 06:26 Resp 15 10/14/24 06:26 BP 124/70 10/14/24 06:26 Pulse Ox 96 10/14/24 06:26 O2 Del Method Room Air 10/14/24 06:26 BMI result Body Mass Index 38.3 Const: General: cooperative, healthy appearing and no acute distress Orientation/consciousness: patient oriented x3 HEENT: Head: Yes normal to inspection, Yes normocephalic and Yes atraumatic Eyes: Conjunctivae: conjunctivae normal Neck: Neck: Yes normal visual inspection and Yes trachea midline Chest: Chest palpation & inspection: normal inspection of the chest Resp: Effort & Inspection: normal respiratory effort GI: Inspection: Yes normal to inspection Palpation (GI): Soft to palpation : General: Yes CVA tenderness (left) Back/Spine/Pelvis: Back: CVA tenderness (left) Neuro: General: patient oriented x3 Psych: Appearance: grossly normal Results Labs 10/13/24 17:11 10/13/24 17:11 Labs: Abnormal lab results 10/13/24 10/13/24 Range/Units 17:11 17:15 WBC 12.3 H (4.8-10.8) X10*3/uL MCH 26.8 L (27.0-33.0) pg Immature Gran % (Auto) 0.6 H (0.0-0.4) % Neut % (Auto) 76.2 H (45-73) % Lymph % (Auto) 15.6 L (20-40) % Abs Immat Gran (auto) 0.07 H (0.00-0.03) X10*3/uL Absolute Neuts (auto) 9.4 H (2.0-8.3) x10*3/uL BUN 19 H (9-16) mg/dL Random Glucose 139 H (60-115) mg/dL ALT 41 H (0-31) U/L Urine Color [place] A Urine Protein 100 (2+) H (Neg-Trace) mg/dL Urine Blood Large (3+) H (Negative) Ur Leukocyte Esterase Small (1+) H (Negative) Urine RBC >20 H (0-2) /HPF Urine WBC 11-20 H (0-5) /HPF Short CBC 10/13/24 Range/Units 17:11 WBC 12.3 H (4.8-10.8) X10*3/uL Hgb 13.7 (12.0-16.0) g/dl Hct 41.6 (37.0-47.0) % Plt Count 245 (160-400) X10*3/uL BMP 10/13/24 17:11 Sodium 139 Potassium 4.6 Chloride 105 Carbon Dioxide 24 BUN 19 H Creatinine 0.85 Calcium 10.2 D Liver Function 10/13/24 Range/Units 17:11 Total Bilirubin 0.3 (0.0-1.0) mg/dL AST 30 (5-31) U/L ALT 41 H (0-31) U/L Alkaline Phosphatase 102 (39-117) U/L Albumin 4.6 (3.5-5.0) g/dL Urine 10/13/24 Range/Units 17:15 Urine Color [place] A Urine Appearance Cloudy Urine pH 5.0 (5.0-9.0) Ur Specific [place] 1.020 (1.005-1.025) Urine Protein 100 (2+) H (Neg-Trace) mg/dL Urine Glucose (UA) Negative (Negative) mg/dL Imaging Abdomen CT scan report/results: report reviewed and image reviewed CT scan - pelvis: report reviewed and image reviewed Additional studies: Date of Service: 10/13/24 CLINICAL HISTORY: Left flank pain --- Additional Notes or Special Instructions: Patient with left ureteric stone having worsening of the CT abdomen and pelvis without contrast Comparison: CT of the abdomen and pelvis from 09/18/2024 Findings: Mild bibasilar atelectasis and scarring. Steatotic change of the liver is redemonstrated with sparing about the gallbladder fossa. Gallbladder is mildly distended. Adrenal glands, pancreas, and spleen appear unchanged. 7 mm calcification of the left ureterovesicular junction (image 63 of series 7). Mild left-sided hydroureteronephrosis. Bilateral perinephric stranding, left worse than right. Cystic lesions of the kidneys are not further characterize without intravenous contrast and likely include parapelvic cysts. Small mesenteric and periaortic lymph nodes are nonspecific and likely reactive. No small bowel obstruction. Severe stool burden is present, including the cecum. Imaged appendix is within normal limits (imaged 51 of series 7) and retrocecal. Mild wall thickening of the mildly distended urinary bladder. Uterus and/or remnant is anteverted. No adnexal soft tissue mass by CT. Moderate bilateral fat containing inguinal hernias. Mild deformities of the imaged pelvis appear old/chronic. Degenerative changes include imaged hips, pubic symphysis, SI joints, in the spine. Right dorsal device with imaged leads and/or electrodes most likely epidural in the imaged spine. Associated artifacts noted. IMPRESSION: 7 mm stone of the left ureterovesicular junction with mild left hydroureteronephrosis. Assessment and Plan (1) Obstructive uropathy: Status: Acute (2) Hydronephrosis due to obstruction of ureter: Status: Acute (3) Renal colic on left side: Status: Acute (4) Left ureteral stone: Status: Acute Plan Cystoscopy Left ureteroscopy laser ureteral stent. Risks discussed included but not limited to, possible need to repeat procedure if stone is not completely fragmented, Irritative voiding symptoms, bladder spasms, urgency, blood in urine. Procedures Date of Service Date of Service: 10/14/24
--- NOTE | 2024-10-14 09:28 | PC.NURSE ---
Telephone report gv to SIENNA Ott in Short Stay; pt resting quietly in room at this time; awaiting time for procedure
--- NOTE | 2024-10-14 11:15 | PC.NURSE ---
Pt brought to short stay surgery; care relinquished at this time
[2024-10-14] MEDS: Lactated Ringers 1,000 ML 50 ML IVCONT (11:45)
[2024-10-14 11:46] LABS: Glucose, Whole Blood 127 mg/dL (60-115)
--- NOTE | 2024-10-14 13:18 | HO.ANESPROP2 ---
HPI - Anesthesia Eval Consult details Narrative: For cysto, retro, laser. PMF Active Problems Active Problems: All Active Problems Left ureteral stone (Acute) Obstructive uropathy (Acute) Hydronephrosis due to obstruction of ureter (Acute) Renal colic on left side (Acute) Lumbar degenerative disc disease (Acute) S/P spinal fusion (Acute) Difficulty speaking (Acute) Osteoarthritis of hands, bilateral (Acute) Osteoarthritis of right knee (Acute) Mixed dyslipidemia (Acute) Cervical spondylosis with radiculopathy (Acute) Osteopenia of left femoral neck (Acute) GERD (gastroesophageal reflux disease) (Acute) Family history of thyroid disease in mother (Acute) Paresthesias (Acute) Family history of von Willebrand disease (Acute) Polyarthralgia (Acute) Fibromyalgia (Acute) Impaired fasting glucose (Acute) Mixed dyslipidemia (Acute) Allergic rhinitis (Acute) Postlaminectomy syndrome (Acute) Chronic fatigue (Acute) Family history of thyroid disease (Acute) Spondylosis of cervical spine (Acute) Increased BMI (Acute) Postmenopause (Acute) Lumbar back pain with radiculopathy affecting lower extremity (Acute) Past Medical History Medical History (Updated 10/14/24 @ 11:27 by Yamileth Cox RN) Diabetes PONV (postoperative nausea and vomiting) Environmental allergies Seasonal allergies Cervical spondylosis with radiculopathy Osteopenia of left femoral neck GERD (gastroesophageal reflux disease) Family history of thyroid disease in mother Paresthesias Family history of von Willebrand disease Polyarthralgia Impaired fasting glucose Mixed dyslipidemia Allergic rhinitis Odynophagia Postlaminectomy syndrome Chronic fatigue Family history of thyroid disease Spondylosis of cervical spine Fibromyalgia COVID-19 vaccine series completed History of postoperative nausea and vomiting Asthma Increased BMI History of shingles Postmenopause Family history of ankylosing spondylitis Sacroiliitis Lumbar back pain with radiculopathy affecting lower extremity Family History Family History Father Arthritis COPD (chronic obstructive pulmonary disease) Afib High cholesterol CVD (cardiovascular disease) Mother Arthritis High cholesterol Graves disease Brother Arthritis Sister Sjogrens syndrome Mental health disorder Maternal Grandmother Breast cancer Myoclonus Rheumatoid arthritis PTSD (post-traumatic stress disorder) Sister Lyme disease Fibromyalgia Graves disease Son No problems noted. Daughter No problems noted. Maternal Aunt Mental health disorder Family history of problems with anesthesia: No Surgical History Surgical History Hx of arthroscopic knee surgery S/P insertion of spinal cord stimulator History of microdiscectomy History of breast mammoplasty History of knee surgery History of total abdominal hysterectomy and bilateral salpingo-oophorectomy History of Problems with Anesthesia: Yes (PONV) Social History Social History Household Members: Spouse Housing: House Are you a primary home day care provider to a significant other at home: Yes (mother, will have care by another family member in th post-op period) Do you presently have visiting nurse or other home services: No Alcohol intake: never Comment: aware of trip hazard Patient Tobacco Use Status: Former Tobacco user Tobacco use type: Cigarette e-Cigarette/Vaping Use: Never Used Second Hand Smoke Exposure: No Advance Directives Date on File: 02/26/20 service: No Current occupational status: employed Cognitive needs: No Hearing needs: No Vision needs: No Meds Allergies Allergy/AdvReac Type Severity Reaction Status Date / Time No Known Allergies (No Known Allergy Verified 10/13/24 16:38 Allergies*) Home Medications ?Medication ?Instructions ?Recorded ?Confirmed ?Last Taken ?Type ginkgo biloba 40 mg tablet 40 mg PO DAILY 08/24/22 03/25/24 Unknown History omega-3 acid ethyl esters 1 gram 1 cap PO BID 11/22/23 03/25/24 11/28/23 History capsule (Lovaza) celecoxib 200 mg capsule 200 mg PO DAILY for pain 03/25/24 03/25/24 Unknown History metformin 500 mg tablet,extended 500 mg PO BID 10/14/24 10/14/24 10/13/24 History release 24 hr Exam Height,Weight and Vital Signs: Height 5 ft 5 in Weight 104.326 kg Last Vital Signs Temp 98.4 F 10/14/24 11:23 Pulse 76 10/14/24 11:23 Resp 20 10/14/24 11:23 BP 135/76 10/14/24 11:23 Pulse Ox 98 10/14/24 11:23 O2 Del Method Room Air 10/14/24 11:23 Pertinent Lab Results Pertinent Lab Results: Laboratory Tests 10/13/24 10/13/24 10/14/24 17:11 17:15 11:42 WBC 12.3 H RBC 5.11 Hgb 13.7 Hct 41.6 MCV 81.4 MCH 26.8 L MCHC 32.9 RDW 13.2 Plt Count 245 MPV 10.0 Immature Gran % (Auto) 0.6 H Neut % (Auto) 76.2 H Lymph % (Auto) 15.6 L [place] % (Auto) 5.4 Eos % (Auto) 1.5 Baso % (Auto) 0.7 Lymph # (Auto) 1.9 [place] # (Auto) 0.7 Eos # (Auto) 0.2 Baso # (Auto) 0.1 Abs Immat Gran (auto) 0.07 H Absolute Neuts (auto) 9.4 H Absolute Nucleated RBC 0.000 Nucleated RBC % (auto) 0.0 Sodium 139 Potassium 4.6 Chloride 105 Carbon Dioxide 24 Anion Gap 15 BUN 19 H Creatinine 0.85 Estim Creat Clear Calc 80.1 Estimated GFR > 60 POC Glucose 127 H Random Glucose 139 H Calcium 10.2 D Total Bilirubin 0.3 AST 30 ALT 41 H Alkaline Phosphatase 102 Total Protein 6.8 Albumin 4.6 Urine Color [place] A Urine Appearance Cloudy Urine pH 5.0 Ur Specific [place] 1.020 Urine Protein 100 (2+) H Urine Glucose (UA) Negative Urine Ketones 15 Urine Blood Large (3+) H Urine Nitrite Negative Ur Leukocyte Esterase Small (1+) H Urine RBC >20 H Urine WBC 11-20 H Ur Squamous Epith Cells 3-5 Urine Bacteria None Seen Hyaline Casts 0-2 Airway Mallampati Class: II TM Dist: <=3cm Neck ROM: Full Heart: ok Lungs: ok Assessment and Plan Assessment Anesthesia Assessment: Anesthesia Plan Discussed and Chart Reviewed Final Anesthetic Review Family History of Problems with Anesthesia: No History of Problems with Anesthesia: Yes (PONV) NPO: Yes ASA Class: III Final Preanesthetic Review: No Changes in Pt Med Stat, Meds/Allgs Chart Reviewed, Consent Obtained/Reviewed and Anes Risks/Benef Reviewed Patient Risk: Intermediate Procedure Risk: Low Anesthetic Plan Anesthetic Plan: GA and Agree w/ Assess. and Plan Disposition: Standard PACU
--- NOTE | 2024-10-14 15:01 | P.DS_ITS ---
DS: Providers Provider Date of Service: 10/14/24 Date of discharge: 10/14/24 Primary care physician: Mariluz Lopez CNP Attending physician on admission: Janell Clayton Attending physician on discharge: Janell Clayton DS: Diagnosis Discharge Diagnosis (1) Obstructive uropathy: Status: Acute (2) Hydronephrosis due to obstruction of ureter: Status: Acute (3) Renal colic on left side: Status: Acute (4) Left ureteral stone: Status: Acute DS: Summary Hospital Course Hospital Course: IVF hydration OR- left ureteroscopy laser stone and ureteral stent insertion Status at Discharge Cognitive/behavioral status at discharge: Stable Functional status at discharge: independent ambulation Overall status at discharge: patient is back to baseline Time Attestation Total time managing care of this patient today: 35 mintues. Discharge Coordination Time (in mins): 35 min Quality: Safe Use of Opioids Does Pt have an Active Cancer Diagnosis on the Problem List?: No Quality: Stroke Does the patient have a stroke diagnosis?: No Physical Exam Vital Signs: Vital Signs: Last Vital Signs Temp 97.4 F 10/14/24 14:38 Pulse 68 10/14/24 14:53 Resp 16 10/14/24 14:53 BP 145/68 H 10/14/24 14:53 Pulse Ox 97 10/14/24 14:53 O2 Del Method Room Air 10/14/24 14:53 BMI result Body Mass Index 38.3 DS: Data Data Completed and Pending Pending studies at discharge: Pending at discharge 10/14/24 14:20 Surgical [PTH] Routine Labs on day of discharge: Laboratory Results - last 24 hr 10/13/24 10/13/24 10/14/24 17:11 17:15 11:42 WBC 12.3 H RBC 5.11 Hgb 13.7 Hct 41.6 MCV 81.4 MCH 26.8 L MCHC 32.9 RDW 13.2 Plt Count 245 MPV 10.0 Immature Gran % (Auto) 0.6 H Neut % (Auto) 76.2 H Lymph % (Auto) 15.6 L [place] % (Auto) 5.4 Eos % (Auto) 1.5 Baso % (Auto) 0.7 Lymph # (Auto) 1.9 [place] # (Auto) 0.7 Eos # (Auto) 0.2 Baso # (Auto) 0.1 Abs Immat Gran (auto) 0.07 H Absolute Neuts (auto) 9.4 H Absolute Nucleated RBC 0.000 Nucleated RBC % (auto) 0.0 Sodium 139 Potassium 4.6 Chloride 105 Carbon Dioxide 24 Anion Gap 15 BUN 19 H Creatinine 0.85 Estim Creat Clear Calc 80.1 Estimated GFR > 60 POC Glucose 127 H Random Glucose 139 H Calcium 10.2 D Total Bilirubin 0.3 AST 30 ALT 41 H Alkaline Phosphatase 102 Total Protein 6.8 Albumin 4.6 Urine Color [place] A Urine Appearance Cloudy Urine pH 5.0 Ur Specific [place] 1.020 Urine Protein 100 (2+) H Urine Glucose (UA) Negative Urine Ketones 15 Urine Blood Large (3+) H Urine Nitrite Negative Ur Leukocyte Esterase Small (1+) H Urine RBC >20 H Urine WBC 11-20 H Ur Squamous Epith Cells 3-5 Urine Bacteria None Seen Hyaline Casts 0-2 Preliminary micro results at discharge 10/13/24 Unknown Urine Culture - Preliminary Urine clean catch - Clean Catch Midstream No growth to date. Discharge Plan Discharge Clinical Impression: Renal colic on left side, Hydronephrosis due to obstruction of ureter Patient Disposition: Home, Self-Care Prescriptions: New oxycodone-acetaminophen [Percocet] 5-325 mg tablet 1 tab PO Q6H PRN (Reason: pain) Qty: 10 0RF Rx Instructions: Partial Fill upon patient request. phenazopyridine [Pyridium] 200 mg tablet 200 mg PO BID PRN (Reason: burning with urination) Qty: 14 0RF Rx Instructions: must administer with food solifenacin [Vesicare] 5 mg tablet 5 mg PO DAILY Qty: 30 0RF Rx Instructions: take VESIcare one tablet daily and may repeat dose in 12 hours daily prn bladder spasms, no more than 2 tabs daily No Action cholecalciferol (vitamin D3) 50 mcg (2,000 unit) capsule 50 mcg PO DAILY Qty: 90 2RF sumatriptan succinate 100 mg tablet 100 mg PO .COMPLEX PRN (Reason: Headache) 10 Days Qty: 10 0RF Rx Instructions: 100 mg orally wth onset of headache, may repeat after 2 hrs if first tab does not work PRN; montelukast 10 mg tablet 10 mg PO DAILY Qty: 90 3RF duloxetine 60 mg capsule,delayed release(DR/EC) 60 mg PO DAILY Qty: 90 3RF loratadine 10 mg tablet 10 mg PO DAILY Qty: 90 3RF famotidine 40 mg tablet 40 mg PO DAILY Qty: 90 3RF diclofenac sodium [Arthritis Pain (diclofenac)] 1 % gel 4 g topical QID Qty: 100 0RF Rx Instructions: apply to single knee, ankle, foot; for foot includes sole/toes/top of foot omega-3 acid ethyl esters [Lovaza] 1 gram capsule 1 cap PO BID celecoxib 200 mg capsule 200 mg PO DAILY metformin 500 mg tablet extended release 24 hr 500 mg PO BID ginkgo biloba 40 mg tablet 40 mg PO DAILY Rx Instructions: give with meal/snack Referrals: Mariluz Lopez CNP [Primary Care Provider, Internal Medicine] Interventions: Admission Worksheet (ED) Last Done: 10/14/24 11:17 Print Language: Azeri
--- NOTE | 2024-10-14 15:35 | PC.NURSE ---
#20 PRN angio IV removed upon discharge, tolerated well.
--- NOTE | 2024-10-14 15:43 | W.PM.OPN ---
Operative Note Operative Note Date of Service: 10/14/24 Narrative: PreOperative Diagnosis:?? Left ureteral stone, left hydronephrosis Post Operative Diagnosis:?? Left ureteral stone, left hydronephrosis Procedure: - Cystoscopy, left ureteroscopy laser lithotripsy stent insertion, 7 [place] by 26 cm Surgeon:?Dr Janell Clayton Anesthesia:? General Procedure: After informed consent was verified the patient was brought to the operating placed on the OR table in supine position.? General Anesthesia was administered per protocol.? The patient was placed in lithotomy position, prepped and draped in the usual sterile fashion.? Safety pause time-out and side of surgery confirmed.? Antibiotics confirmed. 2% lidocaine jelly 10 mL was passed transurethrally. A 22 Micronesian cystoscope was inserted transurethrally, The bladder was visualized.? Both ureteric orifices were in normal position. An open-ended ureteral catheter was passed into the left ureteral orifice A guidewire was passed through the ureteral catheter into the kidney. The balloon dilator size 12 fr x 4 cm was passed over the guide-wire the balloon was inflated to8 mmHg and the intramural ureter was dilated for 30 seconds. The balloon was deflated and removed. After removing the balloon dilator a 2nd guidewire was then passed into the kidney to use as a safety. The cystoscope was removed, leaving both guidewires in place. One guidewire was used as the safety and was attached to the draping. The semi rigid ureteroscope was passed over one of the guidewires to the level of the stone in the ureter. One guidewire was then removed. Laser lithotripsy of the stone was done using the 365 fiber with a alternating pulsating setting. There was good fragmentation of the stone. The 0 degree basket was passed through the ureteroscope, stone fragment(s) removed and sent for analysis. The ureteroscope was removed. The cystoscope was passed over the safety guidewire. A? 7French by 26cm stent was placed into the ureter and renal pelvis under a combination of fluoroscopy and direct visualization. The bladder was emptied.? The rigid cystoscope was removed. ? The patient tolerated the procedure well and was brought to the recovery room in stable condition. Complications: None Drains: Ureteral stent as dictated above
== END 2024-10-14 16:03 | disposition home or self-care (01) ==
PROVIDERS: Nurse Practitioner Family; Urology; Emergency Provider Internal Medicine; PCP Nurse Practitioner Family
PROC: (CPT 52356; principal; 2024-10-14 13:20)
DX: N13.2 Hydronephrosis with renal and ureteral calculous obstruction (principal); Z87.442 Personal history of urinary calculi; E78.5 Hyperlipidemia, unspecified; J45.909 Unspecified asthma, uncomplicated; Z87.891 Personal history of nicotine dependence
CPT/HCPCS: 52356; 36415; 74176; 80053; 81001; 82365; 82947; 85025; 87086; 88300; 96361; 96374; 96375; 96376; 99285; C1726; C1758; C1769; C2617; J0690; J1885; J2003; J2270; J2405; J2704; J3010; J7120; Q9967

== ENCOUNTER → 2024-10-13 18:58 | Outpatient (BNV) | payer OTHER, SELFPAY | PROVIDERS: Emergency Provider Internal Medicine; PCP Nurse Practitioner Family; Visit Provider Urology | DX: N13.9 Obstructive and reflux uropathy, unspecified (principal); N20.1 Calculus of ureter; N13.1 Hydronephrosis with ureteral stricture, not elsewhere classified; N23 Unspecified renal colic | CPT/HCPCS: 52356; 99284 ==

== ENCOUNTER → 2024-10-13 22:06 | Outpatient (BNV) | payer OTHER, SELFPAY | PROVIDERS: Emergency Provider Internal Medicine; PCP Nurse Practitioner Family; Visit Provider Radiology Neuroradiology | DX: N13.2 Hydronephrosis with renal and ureteral calculous obstruction (principal) | CPT/HCPCS: 74176 ==

== ENCOUNTER 2024-10-21 12:44 | Outpatient (AMB) | payer OTHER, SELFPAY ==
--- NOTE | 2024-10-21 12:55 | MHC.OFFVIS ---
Intake Visit Reasons: stent removal (Dr. Marcelo pt) Intake Note: Patient is present for STENT REMOVAL Urology Medication:PYRIDIUM,OXYCODONE,SOLIFENACIN Antibiotic Allergy:NONE Blood Thinner:NONE LOT:[id number] EXP:06/22/2026 Maintenance And Custodian Supervisor Required: No Accompanied by: Sister Allergies No Known Allergies (No Known Allergies*) Allergy (Verified 10/21/24 13:11) HPI Comments Details: Seema is a pleasant female. She is a patient of Dr. Lopez. They are seen for the following urologic conditions - nephrolithiasis Nephrolithiasis She presents for - initial evaluation for nephrolithiasis, Initial presentation through emergency room October 2024 Presenting symptoms included left flank pain with associated nausea Imaging - 11/06 distal left 6 mm stone with mild hydronephrosis Laboratory investigations - 11/06 calcium 10.2, creatinine 0.85 Stone composition - pending 24 hour urine evaluation - none on file Interventions - 11/06 ureteroscopy with laser lithotripsy Current therapeutic plan - surveillance imaging - encourage lemon fluid and 2.5 L per day water - vitamin B6 [facility] Medical History (Updated 10/15/24 @ 00:01 by Salome Pan) Diabetes PONV (postoperative nausea and vomiting) Environmental allergies Seasonal allergies Cervical spondylosis with radiculopathy Osteopenia of left femoral neck GERD (gastroesophageal reflux disease) Family history of thyroid disease in mother Paresthesias Family history of von Willebrand disease Polyarthralgia Impaired fasting glucose Mixed dyslipidemia Allergic rhinitis Odynophagia Postlaminectomy syndrome Chronic fatigue Family history of thyroid disease Spondylosis of cervical spine Fibromyalgia COVID-19 vaccine series completed History of postoperative nausea and vomiting Asthma Increased BMI History of shingles Postmenopause Family history of ankylosing spondylitis Sacroiliitis Lumbar back pain with radiculopathy affecting lower extremity Surgical History Hx of arthroscopic knee surgery S/P insertion of spinal cord stimulator History of microdiscectomy History of breast mammoplasty History of knee surgery History of total abdominal hysterectomy and bilateral salpingo-oophorectomy Family History Father Arthritis COPD (chronic obstructive pulmonary disease) Afib High cholesterol CVD (cardiovascular disease) Mother Arthritis High cholesterol Graves disease Brother Arthritis Sister Sjogrens syndrome Mental health disorder Maternal Grandmother Breast cancer Myoclonus Rheumatoid arthritis PTSD (post-traumatic stress disorder) Sister Lyme disease Fibromyalgia Graves disease Son No problems noted. Daughter No problems noted. Maternal Aunt Mental health disorder Social History Household Members: Spouse Housing: House Are you a primary rehab care assistant to a significant other at home: Yes (mother, will have care by another family member in th post-op period) Do you presently have visiting nurse or other home services: No Alcohol intake: never Comment: aware of trip hazard Patient Tobacco Use Status: Former Tobacco user Tobacco use type: Cigarette e-Cigarette/Vaping Use: Never Used Second Hand Smoke Exposure: No Advance Directives Date on File: 02/26/20 service: No Current occupational status: employed Cognitive needs: No Hearing needs: No Vision needs: No Review of Systems Const Denies chills and Denies fever(s) Card Reports no additional complaints and Denies syncope Resp Denies cough GI Denies abdominal pain and Denies heartburn Reports as per HPI and Denies change in libido Neuro Denies syncope Psych Denies change in libido Endo Denies change in libido Physical Exam Const General: cooperative, healthy appearing, comfortable and no acute distress Orientation/consciousness: patient oriented x3 HEENT Face and sinus: Yes normal facial exam Mouth: moist mucous membranes Neck Neck: Yes normal visual inspection, Yes full ROM and Yes trachea midline Chest Chest palpation & inspection: normal inspection of the chest Resp Effort & Inspection: normal respiratory effort, able to speak in complete sentences and no respiratory distress GI Inspection: Yes normal to inspection Back/Spine/Pelvis Cervical Spine: normal cervical lordosis Thoracic/Lumbar Spine: thoracic and lumbar spine normal to inspection Skin General skin exam: no rashes or lesions noted Neuro General: patient oriented x3, gait normal, tone normal and moves all extremities Extrem General: Yes normal to inspection and Yes capillary refill normal Office Procedures Cystoscopy Consent Discussed risk and benefit or proposed procedure with the patient. Information consent for procedure given to the patient. Discussed technical aspects, risks, benefits and alternatives in full. Addressed all of the patient's questions and concerns regarding the procedure. The patient demonstrated knowledge and understanding. They wish to proceed with this procedure. Preparation The patient was prepped in the usual manner. A hospice entrance attendant was present and in the room. Genitalia was prepped with betadine solution in a sterile manner. Lidocaine Jelly 2% was placed into the urethra and 16Fr flexible Olympus cystoscope was inserted into the meatus after adequate lubrication. Procedure A well lubricated 16 Czech cystoscope was placed No abnormality noted of urethra during placement Indwelling stent seen within bladder emerging from left ureteric orifices The stent was grasped with a 3 prong grasper and removed without difficulty The patient tolerated the procedure well [id number] with stent removal DISPOSABLE SCOPE URO-G FLEXIBLE SCOPE Procedure code (CPT) selection complete Office Meds lidocaine HCl 2 % mucosal jelly in applicator Performing Provider: Jun Simon MD Performing Location: [facility] Administered by: Kitty Farias RN on 10/21/24 13:19 Dose Route Admin Location Dispensed Lot Number Expiration Date NDC Property Disposal Manager 10 mL intra-urethral 10 mL nitrofurantoin monohydrate/macrocrystals 100 mg capsule Performing Provider: Jun Simon MD Performing Location: [facility] Administered by: Kitty Farias RN on 10/21/24 13:19 Dose Route Admin Location Dispensed Lot Number Expiration Date NDC Property Disposal Manager 100 mg PO 1 cap Comments: Naproxen held due to patient being on Celebrex daily. Results AMB Urinalysis, Automated UA Leukoctes 500 Ashley/uL Last Edit by ADI Ann on 10/21/24 13:28 UA Nitrite Positive Last Edit by ADI Ann on 10/21/24 13:28 UA Urobilinogen 70 mg/dL Last Edit by ADI Ann on 10/21/24 13:28 UA Protein 1.0 mg/dL Last Edit by ADI Ann on 10/21/24 13:28 UA pH 5.0 Last Edit by ADI Ann on 10/21/24 13:28 UA Blood 200 Eh/uL Last Edit by ADI Ann on 10/21/24 13:28 UA Specific [place] 1.025 Last Edit by ADI Ann on 10/21/24 13:28 UA Ketone Positive Last Edit by ADI Ann on 10/21/24 13:28 UA Bilirubin 17 mg/dL Last Edit by ADI Ann on 10/21/24 13:28 UA Glucose 0 mg/dL Last Edit by ADI Ann on 10/21/24 13:28 Results Reviewed Results Reviewed: Laboratory Last Values Urine pH (Auto) 5.0 10/21/24 13:27 Specific [place] (Auto) 1.025 10/21/24 13:27 Urine Protein (Auto) 1.0 mg/dL 10/21/24 13:27 Glucose (UA)(Auto) 0 mg/dL 10/21/24 13:27 Urine Ketones (Auto) Positive 10/21/24 13:27 Urine Blood (Auto) 200 Eh/uL 10/21/24 13:27 Urine Nitrite (Auto) Positive 10/21/24 13:27 Urine Bilirubin (Auto) 17 mg/dL 10/21/24 13:27 Urine Urobilinogen (Auto) 70 mg/dL 10/21/24 13:27 Leukocyte Esterase (Auto) 500 Ashley/uL 10/21/24 13:27 Assessment & Plan Assessment & Plan (1) Left ureteral stone: Code(s): N20.1 - Calculus of ureter Category: Medical Plan Six-month follow-up renal ultrasound Dr. Bourne Orders: Orders US renal BI 6 Months N20.1 - Calculus of ureter AMB Cystoscopy Today N13.9 - Obstructive and reflux uropathy, unspecified, N20.1 - Calculus of ureter AMB Urinalysis Automated Today Z13.9 - Encounter for screening, unspecified Patient Instructions: This note is constructed using voice recognition software. While every effort has been made to ensure accuracy asset protection greeter errors may have been included. Imaging studies, laboratory and physical exam results were discussed and reviewed in detail. No major barriers to patient understanding were identified. An opportunity to ask questions regarding the treatment plan was provided. All questions were answered. The patient expressed understanding and agreement with the above treatment plan. The patient is aware they should contact our office by phone for worsening of their current condition or the appearance of new urologic symptoms. Compliance is encouraged with any medications and followup testing that is ordered. It is a privilege to participate in the urologic care of your patient. If you have any questions or concerns regarding treatment for the above conditions, or other urologic issues, please do not hesitate to contact me. The office telephone contact is [phone]. Sincerely, Dr Jun Simon MD, NICHO [facility] - Urology Compassionate Specialist Care for the Genitourinary System Coding Level of Care Code Est Pt Level 3 (85007) Complex EM visit Add On G2211 Diagnoses Left ureteral stone N20.1 CPT Codes Cystoscopy - CPT: 95950-[id number] with stent removal ([id number])
--- OUTSIDE RECORDS SUMMARY | 2024-10-21 13:39 | XMS_ITS | Data Portability ---
Author Organization [facility] [address] Address [address] [place] [address] Assessment No assessment recorded. Plan of Treatment [...] Out Template NON DOT completed Hayley SILVESTRE [employer] [facility] 05/28/2022 08:28:09 Imaging Results None recorded. [...] SNOMED-CT Code Diagnosis ICD10 Code Diagnosis Note [id number] [address] [address] [place] [id number] 10/19/2018 09:28:52 10/19/2018 10:06:31 [id number] Chun Tunde, AEROPLANE PILOT [address] [address] [place] [address] 05/28/2022 08:10:49 05/28/2022 09:14:45 History and physical examination, occupation [id number] Z02.1 Health Concerns Section Related Observation LastModified by Organization Detai ls LastModified Time None Recorded Concern Status LastModified by Organization Details LastModified Time None Recorded Advance Directives Directive None Recorded Payers Insurance Date Sequence Insurance Name Policy Number Policy Clemons Covered Member ID Clemons Member ID Guarantor Name 05/28/2022 1 R [id number] Seema Hutton [id number] Seema Hutton 05/28/2022 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
--- OUTSIDE RECORDS SUMMARY | 2024-10-21 13:39 | XMS_ITS | Clinical Summary ---
Author Organization [address] [facility] Address [address] [place] [address] Phone Care Team Providers Care Senior Qualitative Researcher Name Role Phone Mariluz Lopez NP Primary [...] equina syndrome. She will continue working with [employer] to make adjustments to the newer spinal cord stimulator which had been working pretty well for her. I think she would also benefit from an aquatic/swimming program for core strengthening which she is agreeable. Surgical History Surgery Date Site/Laterality Comments OTHER SURGICAL HISTORY PROCEDURE: NM TOTAL ABDOMINAL HYSTERECT W/WO RMVL TUBE OVARY; [...] 5 Years) and At-Risk Patients (6 to 49 Years) (2 of 2 - PCV) 10/13/2001 [...] 07/01/2024 Social Influencers of Health Screening 07/01/2024 Influenza Vaccine (#1) 2024 , 12/29/2022, 01/31/2022, Additional history exists DTaP,Tdap,and Td Vaccines (4 - Td or Tdap) 02/08/2026 02/09/2016, 12/01/2010, 04/15/2005 HIB Vaccines Aged Out No longer eligi [...] topic Insurance [facility] Care Teams Senior Qualitative Researcher Relationship Specialty Start Date End Date Mariluz Lopez NP [address] [facility] [place] [address] PCP - General Family Medicine 06/30/24
== END 2024-10-21 13:37 | disposition home or self-care (01) ==
LOC: HO.HUSH 12:45
PROVIDERS: PCP Nurse Practitioner Family; Visit Provider Urology
DX: N20.1 Calculus of ureter (principal); N13.9 Obstructive and reflux uropathy, unspecified; Z13.9 Encounter for screening, unspecified
CPT/HCPCS: 52310

== ENCOUNTER → 2024-10-21 12:44 | Outpatient (BNVA) | payer OTHER, SELFPAY | PROVIDERS: PCP Nurse Practitioner Family; Visit Provider Urology | DX: N20.1 Calculus of ureter (principal); N13.9 Obstructive and reflux uropathy, unspecified | CPT/HCPCS: 52310; 81003 ==

== ENCOUNTER 2024-11-20 10:11 | Outpatient (AMB) | payer OTHER, SELFPAY ==
--- OUTSIDE RECORDS SUMMARY | 2024-11-20 10:15 | XMS_ITS | Clinical Summary ---
Author Organization [address] [facility] Address [address] [place] [address] Phone Care Team Providers Care Personnel Technician Name Role Phone Mariluz Lopez NP Primary [...] equina syndrome. She will continue working with [employer] to make adjustments to the newer spinal [...] (3 - 2023- season) 2023 03/11/2021, 07/20/2020 Depression Screening 04/15/2024 Cholesterol Screening (Lipid Panel) 07/01/2024 Colorectal Cancer Screening: Colonoscopy 07/01/2024 HIV Screening 07/01/2024 Hepatitis C Screening [...] to complete this topic Insurance Care Teams Personnel Technician Relationship Specialty Start Date End Date Mariluz Lopez NP [address] [place] [address] PCP - General Family Medicine 06/30/24
--- NOTE | 2024-11-20 10:28 | MHC.OFFVIS ---
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 Patient was referred by Pain Management 05/18/24 at their last visit together they discussed her lower back pain. Patient states her lower back pain has been presents for 20 years, she is having radiating pain down her legs at times, difficulty walking due to feeling tightness in lwer back. She uses a cane with prolong walking. She get numbness and tingling in her left foot that comes and goes. STates she had a CT scan done at [facility]. She is not able to have MRI's due to having 2 back stimulator. Allergies No Known Allergies (No Known Allergies*) Allergy (Verified 11/20/24 10:32) Medication List - Last Reconciled 11/20/24 by Maritza Domingo MD celecoxib 200 mg PO DAILY cholecalciferol (vitamin D3) 50 mcg PO DAILY diclofenac sodium 1% (Arthritis Pain (diclofenac)) 4 grams topical QID duloxetine 60 mg PO DAILY famotidine 40 mg PO DAILY ginkgo biloba 40 mg PO DAILY loratadine 10 mg PO DAILY metformin ER 500 mg PO BID montelukast 10 mg PO DAILY sumatriptan succinate 100 mg orally wth onset of headache, may repeat after 2 hrs if first tab does not work PRN; 10 days HPI Comments Details: Reviewed notes from pain management, neuro spine, Rheumatology, Orthopedics and PCP. Chronic lower back pain. She has had multiple procedures including SI joint stimulator, spinal cord stimulator, caudal epidural with catheter, knee gel injections, and history of lumbar diskectomy by Dr. Atwood. Diagnosed by Rheumatology with fibromyalgia and multiple joint osteoarthritis. Lives at home. 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 When not working, she does gardening 1-2x/week, needs to sit, 30 minutes at most. Walk around the house which is on a hill, at least once a day. She tries to do chair arm and leg exercises. Tried yoga last year. When she walks any distance, needs cane or cart. Can walk farther with those. She has lower back pain. Does not seem to be radicular. Prolonged walking exacerbates her pain unless she is using a cane or grocery cart. She has noted some urinary incontinence although wondered if that was related to a recent kidney stone. She follows with urology for that. [facility] Medical History (Updated 11/20/24 @ 14:39 by Maritza Domingo MD) Diabetes PONV (postoperative nausea and vomiting) Environmental allergies Seasonal allergies Cervical spondylosis with radiculopathy Osteopenia of left femoral neck GERD (gastroesophageal reflux disease) Family history of thyroid disease in mother Paresthesias Family history of von Willebrand disease Polyarthralgia Impaired fasting glucose Mixed dyslipidemia Allergic rhinitis Odynophagia Postlaminectomy syndrome Chronic fatigue Family history of thyroid disease Spondylosis of cervical spine Fibromyalgia COVID-19 vaccine series completed History of postoperative nausea and vomiting Asthma Increased BMI History of shingles Postmenopause Family history of ankylosing spondylitis Sacroiliitis Lumbar back pain with radiculopathy affecting lower extremity Surgical History Hx of arthroscopic knee surgery S/P insertion of spinal cord stimulator History of microdiscectomy History of breast mammoplasty History of knee surgery History of total abdominal hysterectomy and bilateral salpingo-oophorectomy Family History Father Arthritis COPD (chronic obstructive pulmonary disease) Afib High cholesterol CVD (cardiovascular disease) Mother Arthritis High cholesterol Graves disease Brother Arthritis Sister Sjogrens syndrome Mental health disorder Maternal Grandmother Breast cancer Myoclonus Rheumatoid arthritis PTSD (post-traumatic stress disorder) Sister Lyme disease Fibromyalgia Graves disease Son No problems noted. Daughter No problems noted. Maternal Aunt Mental health disorder Social History (Updated 11/20/24 @ 10:35 by ADI Rizo) Household Members: Spouse Housing: House Are you a primary health care legal assistant to a significant other at home: Yes (mother, will have care by another family member in th post-op period) Do you presently have visiting nurse or other home services: No Alcohol intake: never Comment: aware of trip hazard Patient Tobacco Use Status: Former Tobacco user Tobacco use type: Cigarette e-Cigarette/Vaping Use: Never Used Second Hand Smoke Exposure: No Advance Directives Date on File: 02/26/20 service: No Current occupational status: employed 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 Patient was appropriately conversant and oriented. Good historian. MSK: [No] specific abnormalities found on inspection of the spine and all extremities. There is some tenderness over bilateral SI joint and greater trochanters. No tenderness over spinous processes or facets. Lumbar ROM was [full]. [Bilateral hip, knee and ankle ROM WNL]. No ligamentous laxity or crepitance. [No increased effusion]. Straight-leg raising test [negative]. FABERE test [negative]. [Gillet test is negative]. [Antwon test is negative]. [Piriformis test is negative]. [Scour test is negative]. Strength is [5/5 in all muscle groups tested]. [No increased tone noted]. Neurological: Neurologic examination of the upper and lower extremities was nonfocal with intact sensation, muscle stretch reflexes and without focal motor deficits [ ]. Echeverria?s [negative bilaterally]. Babinski was [down going bilaterally]. Clonus was [negative]. Gait is [non-]antalgic without loss of balance. Patient was [able] to perform heel walk and toe walk. Vital Signs: BMI result Body Mass Index 39.6 Results Reviewed Results Reviewed: I independently reviewed the results of the following: An MRI back in 2021 did show some degree of spinal stenosis L4-5. Was not able to open the myelogram. Ordering Physician: Jaime Staton Date of Service: 02/07/24 Procedure(s): XR lumbar spine 4V min Accession Number(s): [id number] cc: Jaime Staton; Julia Fiore MD~ EXAMINATION: XR LUMBAR SPINE 4 VIEWS CLINICAL INFORMATION: Other intervertebral disc degeneration, lumbar region without ... M51.369. COMPARISON: XR Lumbar comp 06/03/2018 TECHNIQUE: Standing, a/p, lateral with flex/ext views of lumbar spine were obtained. FINDINGS: Exaggerated lumbar lordosis. Mild anterolisthesis of L4 on L5. No pathologic motion with flexion or extension. Multilevel degenerative changes of the lumbar spine. Facet arthropathy most pronounced in the lower lumbar spine. Nerve stimulators overlying lower thoracic spine, and left sacral region. XR/XR lumbar spine 4V min IMPRESSION: Multilevel degenerative changes of the lumbar spine. Facet arthropathy most pronounced in the lower lumbar spine. Electronically signed by: Chilo Edmonds MD 04/07/2024 10:46 AM [facility] I reviewed records from the following: Pain management Neuro spine: Mrs Hutton is here in follow-up to review her lumbar CT myelogram and x-rays done at [facility] for chronic low back pain. I reviewed the imaging with Dr. Knutson, she does develop a slight grade 1 spondylolisthesis with standing but it does not move with flexion-extension. We do not think it is enough to justify putting the patient through lumbar fusion surgery as these can sometimes just be incidental findings and not necessarily represent pain generating pathology. She does have varying degrees of facet arthropathy which could explain chronic back pain in addition to the previous surgeries that she has had in her lumbar spine. All of these things could make up the constellation of things that could explain her back pain. Dr. Knutson does not think she would benefit from surgery. I reviewed all the patient's imaging and her x-rays with the patient as well. Assessment & Plan Assessment & Plan (1) Sacroiliac joint dysfunction of both sides: Code(s): M53.3 - Sacrococcygeal disorders, not elsewhere classified Category: Medical (2) Lumbar back pain with radiculopathy affecting lower extremity: Comment: s/p sacroiliac joint injection, left 02/26/2020 Code(s): M54.16 - Radiculopathy, lumbar region Category: Medical (3) Lumbar degenerative disc disease: Code(s): M51.369 - Other intervertebral disc degeneration, lumbar region without mention of lumbar back pain or lower extremity pain Category: Medical Qualifiers: Disc-related pain type: discogenic back pain only Qualified Code(s): M51.360 - Other intervertebral disc degeneration, lumbar region with discogenic back pain only Plan Chronic lower back pain, most likely multifactorial. 1. However on exam today, most of her tenderness are on bilateral SI joints. We talked about what SI joint is using a spinal model. 2. Per history, she most likely has claudication from some degree of spinal stenosis as seen on previous MRI. It helps her to walk with a cane or a grocery cart, and we discussed why this is so. 3. We talked about keeping active. We talked about safe exercises to do at home. We talked about continuing with the use of cane or grocery cart with prolonged walking or shopping. Lastly we talked about what a analysis evaluator can do for her. We agreed that goal is to find a functional quality of life despite her chronic pain. Find a way to do things that she likes. Assessment and plan discussed with patient, and patient was agreeable. All questions were answered thoroughly. Total of 45 minutes spent today including chart review, results review, history taking, physical examination, discussion of assessment and plan, and coordination of care. Maritza Domingo MD, NICHO Board Certified, [place] [employer] and Rehabilitation (ABPMR) Board Certified, [place] Board [employer] Electrodiagnostic Medicine (ABEM) Coding Level of Care Code New Pt Level 4 (36114) Diagnoses Sacroiliac joint dysfunction of both sides M53.3 Lumbar back pain with radiculopathy affecting lower extremity M54.16 Degeneration of intervertebral disc of lumbar region with discogenic back pain M51.360 Disc-related pain type: discogenic back pain only
[2024-11-20 10:32] VITALS: BMI 39.6
== END 2024-11-20 11:13 | disposition home or self-care (01) ==
LOC: HO.HOS 10:12
PROVIDERS: PCP Internal Medicine; Visit Provider Physical Medicine & Rehabilitation
DX: M53.3 Sacrococcygeal disorders, not elsewhere classified (principal); M54.16 Radiculopathy, lumbar region; M51.360 Other intervertebral disc degeneration, lumbar region with discogenic back pain only
CPT/HCPCS: 99204

== ENCOUNTER 2025-03-24 09:41 | Outpatient (AMB) | payer OTHER, SELFPAY ==
[2025-03-24 09:46] VITALS: BMI 39.6
--- NOTE | 2025-03-24 09:46 | A.OFFVIS_ITS ---
Vital Signs 03/24/25 09:46 Height 5 ft 5 in Weight 238 lb BMI 39.6 Intake Visit Reasons: Painful lump on Left Foot Intake Note: Semea is a 64 year old female who presents to the office today as a new patient visit for a painful lump on her left foot referred by her PCP at [facility]. Pt states she has been experiencing pain for about 4 weeks, and she also reports the pain is when she is in motion. She denies any previous treatments. Allergies No Known Allergies (No Known Allergies*) Allergy (Verified 03/24/25 09:59) HPI HPI Painful lump on Left Foot: Details: 64-year-old female past medical history of spinal fusion presents for left foot mass/swelling. She states she noticed it approximately 1 month ago. She did have some recent weight loss however she believes the mass has been there since before. She has pain whenever wearing shoes and walking. [facility] Medical History (Updated 03/24/25 @ 10:43 by Favian Mcrae DPM) Diabetes PONV (postoperative nausea and vomiting) Environmental allergies Seasonal allergies Cervical spondylosis with radiculopathy Osteopenia of left femoral neck GERD (gastroesophageal reflux disease) Family history of thyroid disease in mother Paresthesias Family history of von Willebrand disease Polyarthralgia Impaired fasting glucose Mixed dyslipidemia Allergic rhinitis Odynophagia Postlaminectomy syndrome Chronic fatigue Family history of thyroid disease Spondylosis of cervical spine Fibromyalgia COVID-19 vaccine series completed History of postoperative nausea and vomiting Asthma Increased BMI History of shingles Postmenopause Family history of ankylosing spondylitis Sacroiliitis Lumbar back pain with radiculopathy affecting lower extremity Surgical History Hx of arthroscopic knee surgery S/P insertion of spinal cord stimulator History of microdiscectomy History of breast mammoplasty History of knee surgery History of total abdominal hysterectomy and bilateral salpingo-oophorectomy Family History Father Arthritis COPD (chronic obstructive pulmonary disease) Afib High cholesterol CVD (cardiovascular disease) Mother Arthritis High cholesterol Graves disease Brother Arthritis Sister Sjogrens syndrome Mental health disorder Maternal Grandmother Breast cancer Myoclonus Rheumatoid arthritis PTSD (post-traumatic stress disorder) Sister Lyme disease Fibromyalgia Graves disease Son No problems noted. Daughter No problems noted. Maternal Aunt Mental health disorder Social History (Updated 11/20/24 @ 10:35 by ADI Rizo) Household Members: Spouse Housing: House Are you a primary child caregiver private home to a significant other at home: Yes (mother, will have care by another family member in th post-op period) Do you presently have visiting nurse or other home services: No Alcohol intake: never Comment: aware of trip hazard Patient Tobacco Use Status: Former Tobacco user Tobacco use type: Cigarette e-Cigarette/Vaping Use: Never Used Second Hand Smoke Exposure: No Advance Directives Date on File: 02/26/20 service: No Current occupational status: employed 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 Non fluctuant. Neuro: Negative Tinel sign over dorsal left foot MSK: No pain on palpation of the mass. Palpable bone spur over the 2nd TMT region. Office Procedures AMB Ganglion Cyst Procedure: cyst aspiration left dorsal foot Location: left dorsal 2nd TMT/TN region Medication: 3cc 1% lidocaine plain Description: The left foot was prepped using alcohol and betadine. After local anesthesia was injected, an 18g needle was used to aspirate the mass. No cystic fluid was removed however. The site was dressed with a band-aid. Post-procedure Instructions: The patient was instructed to apply ice to the injection site. The patient was advised to call the office if there are signs or symptoms of worsening pain, infection, or steroid flare. [id number] Aspiration and/or injection of ganglion cyst(s) any location Procedure code (CPT) selection complete Assessment & Plan Assessment & Plan (1) Mass of soft tissue of foot: Code(s): M79.89 - Other specified soft tissue disorders Category: Medical Plan: * Recommended aspiration for the left foot which the patient consented to. Local anesthesia was applied to the left foot and anything gauge needle was used to aspirate the soft tissue mass, no cyst/fluid was retrieved. * Rx US msk since she is unable to receive an MRI due to spinal stimulators. (2) Bone spur of left foot: Code(s): M77.52 - Other enthesopathy of left foot and ankle Category: Medical Plan: * Rx left foot x-ray weightbearing. * Discussed treatment options including surgical resection. Orders: Orders US Extremity Nonvas Limited LT Today M79.89 - Other specified soft tissue disorders XR foot LT min 3V Today M77.52 - Other enthesopathy of left foot and ankle Coding Level of Care Code New Pt Level 3 (80486) Diagnoses Mass of soft tissue of foot M79.89 Bone spur of left foot M77.52 CPT Codes Ganglion Cyst Aspiration/injection - [id number]: 16356 Aspiration and/or injection of ganglion cyst(s) any location ([id number]) Time Spent (min) 35
== END 2025-03-24 10:37 | disposition home or self-care (01) ==
LOC: HO.HPODS 09:42
PROVIDERS: PCP Internal Medicine; Visit Provider Student in an Organized Health Care Education/Training Program
DX: M79.89 Other specified soft tissue disorders (principal); M77.52 Other enthesopathy of left foot and ankle
CPT/HCPCS: 20612; 99203

== ENCOUNTER → 2025-03-24 09:41 | Outpatient (BNVA) | payer OTHER, SELFPAY | PROVIDERS: PCP Internal Medicine; Visit Provider Student in an Organized Health Care Education/Training Program | DX: M79.89 Other specified soft tissue disorders (principal); M77.52 Other enthesopathy of left foot and ankle | CPT/HCPCS: 20612 ==

== ENCOUNTER 2025-03-25 08:08 | Outpatient (REF) | payer OTHER, SELFPAY ==
--- NOTE | ~2025-03-25 | US_ITS ---
CLINICAL HISTORY: M79.89 - Other specified soft tissue disorders --- Additional Notes or Special Instructions: left dorsal foot soft tissue mass. evaluate for cyst US of the left foot Comparison: None provided Findings: Corresponding to the finding clinically in the dorsum of the foot is a complex 3.1 x 2.3 x 6.3 cm mass. Clinically appropriate follow-up possibly with MRI, recommended to assess relationship to adjacent structures and to further characterize. IMPRESSION: 1. Indeterminate mass corresponding to the patient's dorsal foot findings. Clinically appropriate follow-up recommended. This document has been electronically signed by: Marlon Lewis MD on 03/26/2025 10:42:47
--- NOTE | ~2025-03-25 | XR_ITS ---
EXAMINATION: XR FOOT 3 OR MORE VIEWS LEFT HISTORY: M77.52 - Other enthesopathy of left foot and ankle COMPARISON: There are no prior studies available for comparison. FINDINGS: Three weight bearing views of the left foot are submitted. Osseous mineralization is normal. There is no fracture or dislocation. There is mild osteoarthritis of the intertarsal joints. There is a tiny plantar calcaneal spur. The soft tissues are unremarkable. XR/XR foot LT min 3V IMPRESSION: Mild osteoarthritis of the intertarsal joints. Tiny plantar calcaneal spur. Electronically signed by: Humble Vincent MD 03/25/2025 09:21 AM PRIETO
== END 2025-03-25 08:09 | disposition home or self-care (01) ==
LOC: HO.HMGCX 08:08
PROVIDERS: PCP Nurse Practitioner Family; Visit Provider Student in an Organized Health Care Education/Training Program
DX: M77.52 Other enthesopathy of left foot and ankle (principal); M79.89 Other specified soft tissue disorders
CPT/HCPCS: 73630; 76882

== ENCOUNTER → 2025-03-25 08:34 | Outpatient (BNV) | payer OTHER, SELFPAY | PROVIDERS: PCP Nurse Practitioner Family; Visit Provider Radiology Diagnostic Radiology | DX: M19.072 Primary osteoarthritis, left ankle and foot (principal); M77.52 Other enthesopathy of left foot and ankle | CPT/HCPCS: 73630; 76882 ==

== ENCOUNTER 2025-04-01 07:41 | Outpatient (REF) | payer OTHER, SELFPAY ==
--- NOTE | ~2025-04-01 | CT_ITS ---
CLINICAL HISTORY: M79.89 - Other specified soft tissue disorders --- Additional Notes or Special Instructions: left foot mass Exam: Contrast-enhanced CT of the left foot. Comparison: Radiographs dated 03/25/2025. Findings: Osseous structures: There is no fracture or dislocation. No destructive osseous lesions. A small plantar calcaneal enthesophyte is present. There are very minimal tarsal degenerative changes. Soft tissues: No circumscribed collections or solid enhancing lesions are identified. There is slight focal fullness of the subcutaneous fat overlying the dorsum of the foot near the level of the naviculocuneiform articulation (11; 23 and 9; 77), although no definable circumscribed lipoma or solid mass seen in this location. Impression: 1. Slight focal fullness of the subcutaneous fat overlying the dorsum of the foot as described above, without well-defined circumscribed lesion or lipoma in this location. No other evidence of soft tissue masses appreciated. This document has been electronically signed by: Hugh Trejo MD on 04/01/2025 14:06:24
--- OUTSIDE RECORDS SUMMARY | 2025-04-01 07:46 | XMS_ITS | Clinical Summary ---
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 She will continue working with [employer] to make adjustments to the newer spinal cord stimulator which had been working pretty well for her. I think she would also benefit from an aquatic/swimming program for core strengthening which she is agreeable. Surgical History Surgery Date Site/Laterality Comments OTHER SURGICAL HISTORY PROCEDURE: CO TOTAL ABDOMINAL HYSTERECT W/WO RMVL TUBE OVARY; [...] on file Sexual Orientation Not on file Last Filed Vital Signs Vital Sign Reading [...] Last Done Comments Breast Cancer Screening 1960 Colorectal Cancer Screening: Colonoscopy 1960 Cervical Cancer Screening: Pap Smear 1981 Pneumococcal Vaccine: 50+ Years (2 of 2 - PCV) 10/13/2001 10/13/2000 RSV Immunization Adult Patients (1 - Risk 50-74 years 1-dose series) 2010 Hepatitis B Vaccines (3 of 3 - 19+ 3-dose series) 01/16/2016 11/21/2015, 12/23/2006 Zoster Vaccines (2 of 2) 02/23/2023 12/29/2022 Depression Screening 04/15/2024 Cholesterol Screening (Lipid Panel) 07/01/2024 HIV Screening 07/01/2024 Hepatitis C Screening 07/01/2024 Social Influencers of Health Screening 07/01/2024 COVID-19 Vaccine (3 - season) 2024 03/11/2021, 07/20/2020 Influenza Vaccine (#1) 2024 , 12/29/2022, 01/31/2022, [...] to complete this topic Insurance Care Teams 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
--- OUTSIDE RECORDS SUMMARY | 2025-04-01 07:46 | XMS_ITS | Data Portability ---
Author Organization [facility] [address] Address [address] [place] [address] Assessment No assessment recorded. Plan of Treatment [...] Out Template NON DOT completed Hayley SILVESTRE [facility] 05/28/2022 08:28:09 Imaging Results None recorded. [...] Diagnosis SNOMED-CT Code Diagnosis ICD10 Code Diagnosis IMO Codes Diagnosis Note [id number] [address] [facility] [address] [place] [phone] 10/19/2018 09:28:52 10/19/2018 10:06:31 [id number] Chun Griffiths, DIRECTOR MONEY [address] [facility] [address] [place] [address] 05/28/2022 08:10:49 05/28/2022 09:14:45 History and physical examination, occupation [id number] Z02.1 Health Concerns Section Related Observation LastModified by Organization Detai ls LastModified Time None Recorded Concern Status LastModified by Organization Details LastModified Time None Recorded Advance Directives Directive None Recorded Payers Insurance Date Sequence Insurance Name Policy Number Policy Clemons Covered Member ID Clemons Member ID Guarantor Name 05/28/2022 1 R [id number] Seema Hutton [id number] Seema Hutton 05/28/2022 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
[2025-04-01] MEDS: iohexoL 350 MG/ML 100 ML INFUS..BTL IV (09:24)
[2025-04-01 14:58] LABS: Creatinine POC 0.8 mg/dL (0.5-1.4); GFR POC > 60
== END 2025-04-01 07:42 | disposition home or self-care (01) ==
LOC: HO.CT 07:41
PROVIDERS: PCP Nurse Practitioner Family; Visit Provider Student in an Organized Health Care Education/Training Program
DX: M77.52 Other enthesopathy of left foot and ankle (principal); M79.89 Other specified soft tissue disorders
CPT/HCPCS: 73701; 82565; Q9967

== ENCOUNTER 2025-04-09 09:55 | Outpatient (AMB) | payer OTHER, SELFPAY ==
--- OUTSIDE RECORDS SUMMARY | 2025-04-09 09:58 | XMS_ITS | Data Portability ---
Author Organization [facility] [address] Address [address] [place] [address] Assessment No assessment recorded. Plan of Treatment [...] Out Template NON DOT completed Hayley SILVESTRE [facility] 05/28/2022 08:28:09 Imaging Results None recorded. 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 [employer] [address] [facility] [address] [place] [address] 05/28/2022 08:10:49 05/28/2022 09:14:45 History and physical examination, occupation [id number] Z02.1 Health Concerns Section Related Observation LastModified by Organization Detai ls LastModified Time None Recorded Concern Status LastModified by Organization Details LastModified Time None Recorded Advance Directives Directive None Recorded Payers Insurance Date Sequence Insurance Name Policy Number Policy Clemons Covered Member ID Clemons Member ID Guarantor Name 05/28/2022 1 R [id number] Seema Hutton [id number] Seema Hutton 05/28/2022 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
--- OUTSIDE RECORDS SUMMARY | 2025-04-09 09:58 | XMS_ITS | Clinical Summary ---
Author Organization [address] [facility] Address [address] [place] [address] Phone Care Team Providers Care Provider Education Specialist Name Role Phone Mariluz Lopez NP Primary [...] equina syndrome. She will continue working with [employer] to make adjustments to the newer spinal cord stimulator which had been working pretty well for her. I think she would also benefit from an aquatic/swimming program for core strengthening which she is agreeable. Surgical History Surgery Date Site/Laterality Comments OTHER SURGICAL HISTORY PROCEDURE: [place] TOTAL ABDOMINAL HYSTERECT W/WO RMVL TUBE OVARY; [...] to complete this topic Insurance Care Teams Provider Education Specialist Relationship Specialty Start Date End Date Mariluz Lopez NP [address] [place] [address] PCP - General Family Medicine 06/30/24
--- NOTE | 2025-04-09 10:07 | MHC.OFFVIS ---
Intake Visit Reasons: PRE-OP discussion Intake Note: Seema is a 64 year old female who presents today for a pre-op appointment. Patient reports she is base line pain looking to get surgery or not Allergies No Known Allergies (No Known Allergies*) Allergy (Verified 03/24/25 09:59) HPI HPI PRE-OP discussion: Details: 64-year-old female past medical history of spinal fusion returns for review of x-rays, CT scan, and vascular studies left foot mass/swelling. The patient reports a painful mass on the top of her foot that has developed and worsened quickly. It causes her pain whenever her leg is in dependent position, and when wearing shoes. The patient also reports pain in her back, neck, fingers, and right knee. History: She states she noticed it approximately 1 month ago. She did have some recent weight loss however she believes the mass has been there since before. She has pain whenever wearing shoes and walking. Social History: - The patient reports a 40-pound weight loss. - The patient works from home, sitting at a computer all day. COUNTS INCLUDE 234 BEDS AT THE [facility] Medical History (Updated 03/24/25 @ 10:43 by Favian Mcrae DPM) Diabetes PONV (postoperative nausea and vomiting) Environmental allergies Seasonal allergies Cervical spondylosis with radiculopathy Osteopenia of left femoral neck GERD (gastroesophageal reflux disease) Family history of thyroid disease in mother Paresthesias Family history of von Willebrand disease Polyarthralgia Impaired fasting glucose Mixed dyslipidemia Allergic rhinitis Odynophagia Postlaminectomy syndrome Chronic fatigue Family history of thyroid disease Spondylosis of cervical spine Fibromyalgia COVID-19 vaccine series completed History of postoperative nausea and vomiting Asthma Increased BMI History of shingles Postmenopause Family history of ankylosing spondylitis Sacroiliitis Lumbar back pain with radiculopathy affecting lower extremity Surgical History Hx of arthroscopic knee surgery S/P insertion of spinal cord stimulator History of microdiscectomy History of breast mammoplasty History of knee surgery History of total abdominal hysterectomy and bilateral salpingo-oophorectomy Family History Father Arthritis COPD (chronic obstructive pulmonary disease) Afib High cholesterol CVD (cardiovascular disease) Mother Arthritis High cholesterol Graves disease Brother Arthritis Sister Sjogrens syndrome Mental health disorder Maternal Grandmother Breast cancer Myoclonus Rheumatoid arthritis PTSD (post-traumatic stress disorder) Sister Lyme disease Fibromyalgia Graves disease Son No problems noted. Daughter No problems noted. Maternal Aunt Mental health disorder Social History (Updated 11/20/24 @ 10:35 by ADI Rizo) Household Members: Spouse Housing: House Are you a primary daycare provider to a significant other at home: Yes (mother, will have care by another family member in th post-op period) Do you presently have visiting nurse or other home services: No Alcohol intake: never Comment: aware of trip hazard Patient Tobacco Use Status: Former Tobacco user Tobacco use type: Cigarette e-Cigarette/Vaping Use: Never Used Second Hand Smoke Exposure: No Advance Directives Date on File: 02/26/20 service: No Current occupational status: employed 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 No fluctuance or crepitus. Palpable bone spurs over the cuneiform region. Neuro: Negative Tinel sign over dorsal left foot MSK: No pain on palpation of the mass. Palpable bone spur over the 2nd TMT region. Results Reviewed Results Reviewed: X-ray Read: 03/25/2025 X-ray left foot 3 views (AP, MO, Lateral) reviewed which shows dorsal exostosis of the navicular, medial cuneiform, intermediate cuneiforms. No joint space narrowing of the 2nd TMT. I personally reviewed the imaging and my findings are listed above. Date of Service: 03/25/25 Procedure(s): US Extremity Nonvas Limited LT Findings: Corresponding to the finding clinically in the dorsum of the foot is a complex 3.1 x 2.3 x 6.3 cm mass. Clinically appropriate follow-up possibly with MRI, recommended to assess relationship to adjacent structures and to further characterize. IMPRESSION: 1. Indeterminate mass corresponding to the patient's dorsal foot findings. Clinically appropriate follow-up recommended. 04/01/2025 Date of Service: 04/01/25 Procedure(s): CT foot LT w IV con Impression: 1. Slight focal fullness of the subcutaneous fat overlying the dorsum of the foot as described above, without well-defined circumscribed lesion or lipoma in this location. No other evidence of soft tissue masses appreciated. Assessment & Plan Assessment & Plan (1) Bone spur of left foot: Code(s): M77.52 - Other enthesopathy of left foot and ankle Category: Medical Plan: Reviewed left foot x-ray, CT scan, ultrasound tests. Differential diagnosis includes pain from dorsal exostosis with neuritis, and a secondary mass in the midfoot. There is no clinical collection to aspirate. Plan is for surgical excision of the soft tissue mass and resection of the underlying bone spurs. Discussed that a larger incision will be utilized to safely retract the adjacent nerve and artery. The patient will need to obtain preoperative medical clearance from her primary care doctor. Postoperatively, the patient will be placed in a surgical boot for two to three weeks, and it is recommended she use a cane and a contra-lateral even up shoe to aid with balance and gait. Activity should be limited for approximately one month following surgery. Surgery is tentatively scheduled with the maintenance scheduler for April 30 (2) Mass of soft tissue of foot: Code(s): M79.89 - Other specified soft tissue disorders Category: Medical Plan: Possibly lipoma Orders: Referrals Podiatry Procedure Notification M77.52 - Other enthesopathy of left foot and ankle, M79.89 - Other specified soft tissue disorders Coding Level of Care Code Est Pt Level 4 (75068) Diagnoses Bone spur of left foot M77.52 Mass of soft tissue of foot M79.89 Time Spent (min) 25 Comment reviewed imaging and scheduled surgery
== END 2025-04-09 10:42 | disposition home or self-care (01) ==
LOC: HO.HPODS 09:55
PROVIDERS: PCP Nurse Practitioner Family; Visit Provider Student in an Organized Health Care Education/Training Program
DX: M77.52 Other enthesopathy of left foot and ankle (principal); M79.89 Other specified soft tissue disorders
CPT/HCPCS: 99214